=== PATIENT | female | born 1945 | race Caucasian/White ===

== ENCOUNTER 2018-04-16 11:10 | Emergency (ER) | payer OTHER, SELFPAY ==
[2018-04-16 11:20] VITALS: BP 128/72; PULSE 60; RESP 14; TEMP 36.4; O2SAT 100; BMI 21.8
--- NOTE | 2018-04-16 13:22 | ED.ARRPALP ---
HPI - Arrhythmia/Palpitations General Chief Complaint: Arrhythmia/Palpitations Stated Complaint: IRREGULAR HEART BEAT Time Seen by Provider: 04/16/18 13:22 Source: patient Mode of arrival: ambulatory Limitations: no limitations History of Present Illness HPI narrative: Patient is a 72-year-old female here for evaluation of palpitations. She states over the past several weeks if not months she has had more progressive palpitations. She states that it is somewhat associated with lightheadedness however she has not passed out. No chest pain no shortness of breath. Has never had anything like this before. Has not seen a primary care doctor about it. States there does becoming more frequent. Did not seem to be associated with any exercise. She does not know what brings them on. Last varying amounts of time. Is not having the symptoms at the time my evaluation. Related Data Home Medications Medication Instructions Recorded Confirmed naproxen sodium [Aleve] 220 mg PO PRN PRN #0 12/03/16 dihydroergotamine 1 mg/mL 1 mg IM .annually ml 11/26/17 11/26/17 injection solution Previous Rx's Medication Instructions Recorded zoster vaccine live (PF) [Zostavax 0.5 ml SQ X1 #1 ml 12/30/16 (PF)] sumatriptan [Imitrex] 20 mg INTRANASAL PRN #90 day 06/16/17 triamcinolone acetonide 0.1 % 1 applictn DENTAL BID-TID #5 gram 11/26/17 dental paste Allergies Allergy/AdvReac Type Severity Reaction Status Date / Time No Known Drug Allergies Allergy Unverified 11/26/17 16:26 Review of Systems Constitutional Denies fever(s) ENT Ears, Nose, Mouth, and Throat: Denies vertigo, Reports dizziness and Denies disequilibrium Cardiovascular Denies chest pain, Reports irregular heart rhythm, Denies radiating jaw, neck or arm pain, Reports palpitations and Denies dyspnea Respiratory Denies cough and Denies dyspnea Gastrointestinal Gastrointestinal: Denies nausea and Denies vomiting Integumentary/Breasts Denies rash Neurologic Denies confusion, Denies vertigo, Reports dizziness, Denies paresthesias and Denies disequilibrium Psychiatric Denies confusion Endocrine Reports palpitations Hematologic/Lymphatic Comments: Not on anticoagulation PFSH Medical History Migraines (Acute) Surgical History No pertinent past surgical history (Acute) Social History Smoking Status: Never smoker alcohol intake: current Exam Initial Vital Signs Initial Vital Signs: Vital Signs Temperature 97.6 F 04/16/18 11:20 Pulse Rate 60 04/16/18 11:20 Respiratory Rate 14 04/16/18 11:20 Blood Pressure 128/72 04/16/18 11:20 Pulse Oximetry 100 04/16/18 11:20 Const General: cooperative, healthy appearing, comfortable, well developed, well groomed and No acute distress Orientation: alert, awake and oriented x3 HENMT Head: normal to inspection and normocephalic Resp Effort & Inspection: normal respiratory effort Auscultation: clear to auscultation bilaterally Cardio Rate: regular rate Rhythm: regular rhythm Pulses: radial pulses present Skin Lesions: no lesions Neuro General: alert, awake and oriented x3 Psych Appearance: grossly normal and well kempt Course Orders Ordered: ED Orders 04/16/18 11:24 EKG-12 Lead Stat Vital Signs - 8 hr 04/16/18 11:20 04/16/18 13:36 Temperature 97.6 F Pulse Rate 60 62 Respiratory Rate 14 20 Blood Pressure 128/72 131/74 Pulse Oximetry 100 98 MDM - Arrhythmia/Palpitations ECG Data Attestation: I personally reviewed and interpreted this ECG as follows: Prior ECG tracings: not available for review Interpretation: sinus rhythm ventricular rate is 66 Normal QRS normal QTC normal axis No ST T wave changes MDM Narrative Medical decision making narrative: patient was seen quickly because she wanted to leave. Her EKG was un remarkable. No labs were drawn because she did not want to stay. She has no red flag symptoms to include chest pain or passing out. He has never had the symptoms while she is exercising. Informed the patient that she needs to contact her primary care doctor to discuss the indications for Holter monitor. She was given return precautions. She expressed understanding and agreement with plan. Discharge Plan Departure Patient Disposition: Home Clinical Impression: Palpitations Discharge Date/Time: 04/16/18 13:37 Interventions: ED Discharge Assessment Last Done: 04/16/18 13:36 Instructions: DI for Palpitations Activity Restrictions/Additional Instructions: I do recommend that you talk with your primary care doctor about a Holter monitor. Continue all of your medications as directed. You have no restrictions on your activity. I do recommend that if you ever have the symptoms associated with chest pain or shortness of breath or passing out you do need to be re-evaluated in the emergency department. Prescriptions: No Action dihydroergotamine 1 mg/mL solution 1 mg IM .annually RF: 0 triamcinolone acetonide 0.1 % paste 1 applictn Dental BID-TID Qty: 5 RF: 0 naproxen sodium [Aleve] 220 MG capsule 220 mg PO PRN PRNQty: 0 RF: 0 zoster vaccine live (PF) [Zostavax (PF)] 19,400 UNIT/0.65 ML suspension for reconstitution 0.5 ml SQ X1 Qty: 1 RF: 0 sumatriptan [Imitrex] 20 MG spray,non-aerosol 20 mg Intranasal PRN Qty: 90 RF: 0
[2018-04-16 13:36] VITALS: BP 131/74; PULSE 62; RESP 20; O2SAT 98
== END 2018-04-16 13:37 | disposition home or self-care (01) ==
PROVIDERS: Emergency Provider Emergency Medicine; Family Provider Family Medicine; PCP Family Medicine
DX: R00.2 Palpitations (principal)
CPT/HCPCS: 93005; 99282; 99283

== ENCOUNTER → 2018-05-05 14:25 | Outpatient (CLI) | payer OTHER, SELFPAY ==
--- NOTE | 2018-05-21 11:34 | PM.CARDMON.1 ---
[employer] Specialist Report Referral & Results Date Patient Seen: 05/05/18 Requesting provider: Mei Turner Indication: Palpitations Duration of monitoring (days): 7 Diary information: Patient had 6 diary entries associated with sinus rhythm and PACs There were 33 patient triggered events associated with sinus rhythm, PACs, PVCs, and ventricular bigeminy and ventricular bigeminy Data: Minimum heart rate was 40 beats per minute at 06:44 on 05/13/2018 Maximum heart rate was 126 beats per minute at 12:46 on 05/10/2018 Less than 1% of identified beats or either ventricular supraventricular in origin There was a 41 sec run of ventricular trigeminy as well as a 4.7 sec run of ventricular bigeminy There were 6 runs of an SVT maximum being 8 beats with a rate of 102 beats per minute (thus not a classic SVT) Impression: Both ventricular and supraventricular dysrhythmias as above Overall relatively rare premature depolarizations, but patient could be reporting symptoms of palpitations due to ventricular dysrhythmia including ventricular bigeminy and trigeminy as above Clinical correlation suggested
== END ==
PROVIDERS: Family Provider Family Medicine; PCP Family Medicine; Visit Provider Family Medicine
DX: R00.2 Palpitations (principal)
CPT/HCPCS: 0296T; 0298T

== ENCOUNTER → 2018-06-04 09:07 | Outpatient (CLI) | payer OTHER, SELFPAY ==
[2018-06-04 09:53] LABS: Add Manual Diff / Slide Review NO; Basophils Absolute Auto 0 /uL (0-100); Basophils Percent Auto 0.4 % (0-2); Eosinophils Absolute Auto 100 /uL (0-450); Eosinophils Percent Auto 1.8 % (2-4); Hematocrit 43.9 % (36-46); Hemoglobin 14.4 g/dL (12.0-16.0); Lymphocytes Absolute Auto 1600 /uL (1100-4500); Mean Corpuscular HGB Conc 32.8 % (30-36); Mean Corpuscular Hemoglobin 30.6 PG (26-34); Mean Corpuscular Volume 93.2 fL (80-100); Monocytes Absolute Auto 400 /uL (0-900); Monocytes Percent Auto 11.6 % (3-14); Neutrophils Absolute Auto 1500 /uL (1500-7000); Neutrophils Percent Auto 41.2 % (50-75); Platelet Count 208 X10^3/uL (150-400); Red Blood Cell Count 4.71 X10^6/uL (4.0-5.2); Red Cell Distribution Width 13.5 % (11.6-14.8); White Blood Cell Count 3.5 X10^3/uL (4.5-11.0)
[2018-06-04 10:02] LABS: Alanine Aminotransferase 31 IU/L (9-52); Albumin 4.4 g/dL (3.5-5.0); Albumin Globulin Ratio 1.4 (1.0-2.8); Alkaline Phosphatase 86 U/L (38-126); Aspartate Aminotransferase 30 IU/L (14-36); Bilirubin Total 0.6 mg/dL (0.2-1.3); Blood Urea Nitrogen 18 mg/dL (7-17); Calcium 9.1 mg/dL (8.4-10.2); Carbon Dioxide 30 mmol/L (22-32); Chloride 101 mmol/L (98-107); Cholesterol 226 mg/dL (140-199); Estimated Glomerular Filt Rate > 60.0 mL/min (>60); Globulin 3.1 g/dL (1.7-4.1); Glucose 95 mg/dL (80-110); HDL Cholesterol 76 mg/dL (40-60); HEMOLYSIS < 15 (0-50); LDL Cholesterol Calculated 139 mg/dL (<100); Potassium 4.8 mmol/L (3.4-5.1); Sodium 139 mmol/L (137-145); Total Protein 7.5 g/dL (6.3-8.2); Triglycerides 55 mg/dL (35-150)
[2018-06-04 10:46] LABS: Appearance Urine UA CLEAR; Bilirubin Urine UA NEGATIVE (NEGATIVE); Color Urine UA YELLOW; Glucose Urine UA NEGATIVE (Negative); Ketones Urine UA NEGATIVE (NEGATIVE); Leukocyte Esterase Urine UA NEGATIVE (NEGATIVE); Nitrite Urine UA NEGATIVE (Negative); Occult Blood Urine UA NEGATIVE (Negative); Protein Urine UA NEGATIVE (Negative); Specific Gravity Urine UA 1.015 (1.000-1.035); Urobilinogen Urine UA 0.2 E.U./dL (0.2); pH Urine UA 7.5 (4.5-8.0)
[2018-06-04 11:04] LABS: Thyroid Stimulating Hormone 1.37 uIU/mL (0.47-4.68)
== END ==
PROVIDERS: Family Provider Family Medicine; PCP Family Medicine; Visit Provider Family Medicine
DX: I49.9 Cardiac arrhythmia, unspecified (principal); R53.83 Other fatigue; Z51.81 Encounter for therapeutic drug level monitoring
CPT/HCPCS: 36415; 80053; 80061; 81003; 84443; 85025

== ENCOUNTER 2018-07-15 12:16 | Emergency (ER) | payer OTHER, SELFPAY ==
[2018-07-15 12:22] VITALS: BP 141/90; PULSE 57; RESP 16; TEMP 36.3; O2SAT 100
--- NOTE | 2018-07-15 14:04 | TAR.TRANSNT ---
Pt in extreme discomfort in her mid to lower back with hyperventilation and facial grimacing which increases with little movement.
--- NOTE | 2018-07-15 14:06 | PC.NURSE ---
Pt c/o difficulty breathing and noticed multiple PVCs during this time. Pt reports has a irregular heart beat and waiting for occupational therapy supervisor f/u in July. Is not currently on anticoagulant or medication.
--- NOTE | 2018-07-15 14:08 | PC.NURSE ---
Pt reports no injury but had done yard work a few days ago with much lifting and pulling. Denies problem with incontinences
[2018-07-15 14:19] VITALS: BP 145/96; PULSE 64; RESP 20
--- NOTE | 2018-07-15 14:24 | ED.BACK ---
HPI - Back Pain/Injury <SILKE Hoffmann - Last Filed: 07/15/18 16:35> General Chief Complaint: Back Pain/Injury Stated Complaint: says she has muscle spasms Time Seen by Provider: 07/15/18 14:15 Source: patient Mode of arrival: ambulatory Limitations: no limitations History of Present Illness HPI Narrative: The patient is a 72-year-old female who presents with chief complaint of lower back pain on her left side. She was seen at the walk-in clinic for the same earlier this morning. She was given Toradol at the walk-in clinic and a prescription was sent in for a muscle relaxer. She did not fill the prescription for muscle relaxer and presents today with worsening pain. she denies any fevers chills nausea vomiting diarrhea. She does complain of some urinary urgency, but had a normal UA at the walk-in clinic. Related Data Home Medications Medication Instructions Recorded Confirmed naproxen sodium [Aleve] 220 mg PO PRN PRN #0 12/03/16 07/15/18 dihydroergotamine 1 mg/mL 1 mg IM .annually ml 11/26/17 07/15/18 injection solution Previous Rx's Medication Instructions Recorded sumatriptan [Imitrex] 20 mg INTRANASAL PRN #90 day 06/16/17 hydrocodone-acetaminophen 1 tab PO Q4-6H PRN #10 tab 07/15/18 methocarbamol 500 mg tablet 500 mg PO QID PRN #10 tab 07/15/18 Allergies Allergy/AdvReac Type Severity Reaction Status Date / Time No Known Drug Allergies Allergy Verified 07/15/18 08:12 Review of Systems <SILKE Hoffmann - Last Filed: 07/15/18 16:35> Review of Systems GENERAL: Denies chills, fatigue, malaise, fever, sweats. HEENT: Denies sinus pain, ear pain, sore throat, difficulty swallowing, dizziness. RESPIRATORY: Denies dyspnea, cough, wheezing, hemoptysis, sputum. CARDIOVASCULAR: Denies chest pain, palpitations, orthopnea, edema, GASTROINTESTINAL: Denies nausea, vomiting, abdominal pain, diarrhea, constipation, melena. : Denies dysuria, frequency, incontinence, hematuria, urinary retention. MUSCULOSKELETAL: See HPI SKIN: Denies rash, skin lesions, or other NEUROLOGIC: Denies weakness, headache, numbness, change in speech, confusion, seizures, incoordination. PSYCHIATRIC: No concerning psychosocial issues. 12 point review of systems is negative except for those stated above PFSH <SILKE Hoffmann - Last Filed: 07/15/18 16:35> Medical History Migraines (Acute) Surgical History No pertinent past surgical history (Acute) Social History Smoking Status: Never smoker alcohol intake: current Social History Smoking Status: Never smoker alcohol intake: current Exam <SILKE Hoffmann - Last Filed: 07/15/18 16:35> Narrative Exam Narrative: GENERAL: This is a well-nourished, well-developed patient, in mild distress. HEAD: Atraumatic. Normocephalic. No temporal or scalp tenderness. EYES: Pupils equal round and reactive. Extraocular motions intact. No scleral icterus. No injection or drainage. ENT: Nose without bleeding, purulent drainage or septal hematoma. Throat without erythema, tonsillar hypertrophy or exudate. Uvula midline. Airway patent. NECK: Trachea midline. No JVD or lymphadenopathy. Supple, nontender, no meningeal signs. CARDIOVASCULAR: Regular rate and rhythm without murmurs, gallops, or rubs. no cough. No accessory muscle use or increased respiratory effort. RESPIRATORY: Clear to auscultation. Breath sounds equal bilaterally. No wheezes, rales, or rhonchi. GASTROINTESTINAL: Abdomen soft, non-tender, nondistended. No hepato-splenomegaly, or palpable masses. No guarding. active bowel sounds. No palpable pulsatile mass. EXTREMITIES: No clubbing, cyanosis, or edema. No joint tenderness, effusion, or edema noted. BACK: Nontender without deformity or crepitance. No flank tenderness. no pain to palpation C-spine or spine. Pain to palpation of left paraspinal muscles and T-spine area. Less pain to palpation right paraspinal muscles. Strength equal upper and lower extremities bilaterally. normal gait, normal muscle tone. NEURO: AOx3. No gross cranial nerve deficit. SKIN: No rash or erythema. Initial Vital Signs Initial Vital Signs: Vital Signs Temperature 97.4 F L 07/15/18 12:22 Pulse Rate 57 L 07/15/18 12:22 Respiratory Rate 16 07/15/18 12:22 Blood Pressure 141/90 H 07/15/18 12:22 Pulse Oximetry 100 07/15/18 12:22 <Maggie Mercedes DO - Last Filed: 07/16/18 19:37> Initial Vital Signs Initial Vital Signs: Vital Signs Temperature 97.4 F L 07/15/18 12:22 Pulse Rate 57 L 07/15/18 12:22 Respiratory Rate 16 07/15/18 12:22 Blood Pressure 141/90 H 07/15/18 12:22 Pulse Oximetry 100 07/15/18 12:22 Course <CLEMENTE HoffmannBC - Last Filed: 07/15/18 16:35> Orders Ordered: Discontinued Medications Hydrocodone Bitart/Acetaminophen (Baldwin 5/325) 1 tab PO NOW ONE Stop: 07/15/18 14:24 Last Admin: 07/15/18 14:29 Dose: 1 tab Cyclobenzaprine HCl (Flexeril) 10 mg PO NOW ONE Stop: 07/15/18 14:24 Last Admin: 07/15/18 14:29 Dose: 10 mg Vital Signs - 8 hr 07/15/18 12:22 07/15/18 14:19 07/15/18 16:24 Temperature 97.4 F L Pulse Rate 57 L 64 63 Respiratory Rate 16 20 Blood Pressure 141/90 H 118/95 H Blood Pressure [Left Arm] 145/96 H Pulse Oximetry 100 100 <Maggie Mercedes DO - Last Filed: 07/16/18 19:37> Orders Ordered: Discontinued Medications Hydrocodone Bitart/Acetaminophen (Baldwin 5/325) 1 tab PO NOW ONE Stop: 07/15/18 14:24 Last Admin: 07/15/18 14:29 Dose: 1 tab Cyclobenzaprine HCl (Flexeril) 10 mg PO NOW ONE Stop: 07/15/18 14:24 Last Admin: 07/15/18 14:29 Dose: 10 mg Vital Signs - 8 hr 07/15/18 12:22 07/15/18 14:19 07/15/18 16:24 Temperature 97.4 F L Pulse Rate 57 L 64 63 Respiratory Rate 16 20 Blood Pressure 141/90 H 118/95 H Blood Pressure [Left Arm] 145/96 H Pulse Oximetry 100 100 MDM - Back Pain/Injury <BRANDYN Hoffmann-BC - Last Filed: 07/15/18 16:35> Lab Data Lab Results 07/15/18 Range/Units 14:33 Urine Color Yellow Urine Appearance Clear Urine pH 7.5 (4.5-8.0) Ur Specific [place] 1.010 (1.000-1.035) Urine Protein Negative (Negative) Urine Glucose (UA) Negative (Negative) g/dL Urine Ketones Negative (NEGATIVE) Urine Occult Blood Negative (Negative) Urine Nitrate Negative (Negative) Urine Bilirubin Negative (NEGATIVE) Urine Urobilinogen 0.2 (0.2) E.U./dL Ur Leukocyte Esterase Negative (NEGATIVE) Urine RBC None seen (0-5/HPF) Urine WBC None seen (0-5/HPF) Urine Bacteria None seen (None) Ur Culture Indicated? Cult not indicated Micro UA Comment Microscopic normal MDM Narrative Medical decision making narrative: The patient is a 72-year-old female who presents with a chief complaint of back pain. She was seen at the walk-in clinic, but did not fill her muscle relaxer prescription that she was given this morning. The she declined x-rays she does not have thoughts of injury to spinal column. She was treated with a Baldwin as well as Flexeril in the emergency department. She had good relief of pain. She denies any red flag symptoms such as incontinence or saddle anesthesia. I discussed at length return precautions to the ER including incontinence and/or saddle anesthesia. I did give her prescription of Baldwin and she will use the Robaxin prescription that was sent earlier today. I discussed at length follow up with primary care. Patient no questions or concerns upon discharge. <Maggie Mercedes DO - Last Filed: 07/16/18 19:37> Lab Data Lab Results 07/15/18 Range/Units 14:33 Urine Color Yellow Urine Appearance Clear Urine pH 7.5 (4.5-8.0) Ur Specific [place] 1.010 (1.000-1.035) Urine Protein Negative (Negative) Urine Glucose (UA) Negative (Negative) g/dL Urine Ketones Negative (NEGATIVE) Urine Occult Blood Negative (Negative) Urine Nitrate Negative (Negative) Urine Bilirubin Negative (NEGATIVE) Urine Urobilinogen 0.2 (0.2) E.U./dL Ur Leukocyte Esterase Negative (NEGATIVE) Urine RBC None seen (0-5/HPF) Urine WBC None seen (0-5/HPF) Urine Bacteria None seen (None) Ur Culture Indicated? Cult not indicated Micro UA Comment Microscopic normal Discharge Plan Departure Patient Disposition: Home Clinical Impression: Low back pain Qualifiers: Chronicity: acute Back pain laterality: left Sciatica presence: without sciatica Qualified Code(s): M54.5 - Low back pain Discharge Date/Time: 07/15/18 16:25 Interventions: ED Discharge Assessment Last Done: 07/15/18 16:24 Instructions: DI for Back Spasm, DI for Back Strain or Sprain Activity Restrictions/Additional Instructions: The walk-in clinic sent a muscle relaxer in for you. I have given you a prescription of a pain medication. This can be sedating and constipating. Please do not take and drive. Please follow up with primary care provider in the next few days. Please monitor for acute concerns such as incontinence of bowel, incontinence of bladder, and numbness where you would sit in a horse which is called saddle anesthesia. Please follow up with primary care provider come back to the emergency department if you need to. Prescriptions: New hydrocodone-acetaminophen 5-325 mg tablet 1 tab PO Q4-6H PRN (Reason: pain) Qty: 10 RF: 0 No Action dihydroergotamine 1 mg/mL solution 1 mg IM .annually RF: 0 methocarbamol 500 mg tablet 500 mg PO QID PRN (Reason: muscle spasm) Qty: 10 RF: 0 naproxen sodium [Aleve] 220 MG capsule 220 mg PO PRN PRNQty: 0 RF: 0 sumatriptan [Imitrex] 20 MG spray,non-aerosol 20 mg Intranasal PRN Qty: 90 RF: 0 Referrals: Mei Turner DO [Primary Care Provider] - <Maggie Mercedes DO - Last Filed: 07/16/18 19:37> Cosign ED Attending Johannature Attestation: I was immediately available in the department for consultation. This documentation has been reviewed and I agree with assessment and plan. Supervised by Maggie Mercedes DO
[2018-07-15] MEDS: CYCLOBENZAPRINE 10 MG TABLET PO (14:29)
[2018-07-15] MEDS: HYDROCODONE/ACET 5/325 TABLET 1 TAB PO (14:29)
[2018-07-15 14:38] LABS: Appearance Urine UA CLEAR; Bacteria Urine None Seen; Bilirubin Urine UA NEGATIVE (NEGATIVE); Color Urine UA YELLOW; Glucose Urine UA NEGATIVE (Negative); Ketones Urine UA NEGATIVE (NEGATIVE); Leukocyte Esterase Urine UA NEGATIVE (NEGATIVE); Nitrite Urine UA NEGATIVE (Negative); Occult Blood Urine UA NEGATIVE (Negative); Protein Urine UA NEGATIVE (Negative); RBC Urine None Seen (0-5/HPF); Urobilinogen Urine UA 0.2 E.U./dL (0.2); WBC Urine None Seen (0-5/HPF); pH Urine UA 7.5 (4.5-8.0)
[2018-07-15 14:44] LABS: Culture Indicated Urine Cult Not Indicated; Urine Comments Microscopic Normal
[2018-07-15 16:24] VITALS: BP 118/95; PULSE 63; O2SAT 100
== END 2018-07-15 16:25 | disposition home or self-care (01) ==
PROVIDERS: Emergency Provider Nurse Practitioner Family; Family Provider Family Medicine; PCP Family Medicine
DX: M54.5 Low back pain (principal); R39.15 Urgency of urination
CPT/HCPCS: 81001; 93005; 93010; 99283

== ENCOUNTER → 2018-11-10 10:31 | Outpatient (CLI) | payer OTHER, SELFPAY ==
[2018-11-10 11:48] LABS: Alanine Aminotransferase 20 IU/L (9-52); Albumin 4.6 g/dL (3.5-5.0); Albumin Globulin Ratio 1.5 (1.0-2.8); Alkaline Phosphatase 76 U/L (38-126); Aspartate Aminotransferase 27 IU/L (14-36); BUN Creatinine Ratio 22.5 (6-22); Bilirubin Total 0.9 mg/dL (0.2-1.3); Blood Urea Nitrogen 18 mg/dL (7-17); Calcium 9.3 mg/dL (8.4-10.2); Carbon Dioxide 28 mmol/L (22-32); Chloride 103 mmol/L (98-107); Cholesterol 187 mg/dL (140-199); Estimated Glomerular Filt Rate > 60.0 mL/min (>60); Globulin 3.1 g/dL (1.7-4.1); Glucose 94 mg/dL (80-110); HDL Cholesterol 64 mg/dL (40-60); HEMOLYSIS < 15 (0-50); LDL Cholesterol Calculated 105 mg/dL (<100); Potassium 4.8 mmol/L (3.4-5.1); Sodium 140 mmol/L (137-145); Total Protein 7.7 g/dL (6.3-8.2); Triglycerides 88 mg/dL (35-150)
== END ==
PROVIDERS: Family Provider Family Medicine; PCP Family Medicine; Visit Provider Family Medicine
DX: E78.5 Hyperlipidemia, unspecified (principal)
CPT/HCPCS: 36415; 80053; 80061

== ENCOUNTER → 2018-11-11 10:49 | Outpatient (CLI) | payer OTHER, SELFPAY ==
--- NOTE | 2018-11-11 | DI.MG.S_ITS ---
BILATERAL DIGITAL SCREENING MAMMOGRAM 3D/2D WITH CAD: 11/11/2018 CLINICAL: Routine screening. Family history of breast cancer. Comparison is made to exams dated: 06/01/2016 mammogram, 05/30/2015 mammogram, 05/16/2014 mammogram, 05/15/2013 mammogram, 05/05/2013 mammogram, and 04/28/2012 mammogram - [facility]. The tissue of both breasts is heterogeneously dense. This may lower the sensitivity of mammography. Current study was also evaluated with a Computer Aided Detection (CAD) system. No significant masses, calcifications, or other findings are seen in either breast. There has been no significant interval change. IMPRESSION: NEGATIVE There is no mammographic evidence of malignancy. A 1 year screening mammogram is recommended. This exam was interpreted at Station ID: [id number]. NOTE: For mammograms, a report in lay terms will be sent to the patient. Approximately 15% of breast malignancies will not be visualized mammographically. In the management of a palpable breast mass, a negative mammogram must not discourage biopsy of a clinically suspicious lesion. Electronically Signed By: Antonio hardy/andressa:11/11/2018 11:28:02 copy to: Mei Turner letter sent: Normal Exam ACR BI-RADS Category 1: Negative 3341F
== END ==
PROVIDERS: PCP Family Medicine; Visit Provider Family Medicine
DX: Z12.31 Encounter for screening mammogram for malignant neoplasm of breast (principal); Z80.3 Family history of malignant neoplasm of breast
CPT/HCPCS: 77063; 77067

== ENCOUNTER → 2019-08-29 | Outpatient (CLI) | payer OTHER, SELFPAY | PROVIDERS: PCP Family Medicine; Referring Provider Family Medicine; Visit Provider Family Medicine ==

== ENCOUNTER → 2019-08-31 07:29 | Outpatient (CLI) | payer OTHER, SELFPAY ==
[2019-08-31 08:45] LABS: Hematocrit 41.3 % (36-46); Hemoglobin 14.2 g/dL (12.0-16.0); Mean Corpuscular HGB Conc 34.4 % (30-36); Mean Corpuscular Hemoglobin 31.8 PG (26-34); Mean Corpuscular Volume 92.5 fL (80-100); Platelet Count 196 X10^3/uL (150-400); Red Blood Cell Count 4.46 X10^6/uL (4.0-5.2); Red Cell Distribution Width 13.1 % (11.6-14.8); White Blood Cell Count 3.5 X10^3/uL (4.5-11.0)
[2019-08-31 08:56] LABS: Cholesterol 207 mg/dL (140-199); HDL Cholesterol 62 mg/dL (40-60); LDL Cholesterol Calculated 126 mg/dL (<100); Triglycerides 96 mg/dL (35-150)
[2019-08-31 09:05] LABS: Neutrophils Absolute Manual 1820 /uL (3000-5900); Total Cells Counted 100
[2019-08-31 09:06] LABS: RBC Morphology Normal Morphology
[2019-09-01 13:09] LABS: SARS CoV19 IgG Negative (Negative)
== END ==
PROVIDERS: Family Medicine; PCP Family Medicine; Referring Provider Family Medicine; Visit Provider Family Medicine
DX: E78.5 Hyperlipidemia, unspecified (principal)
CPT/HCPCS: 36415; 80061; 85025; 86769

== ENCOUNTER → 2019-11-23 11:49 | Outpatient (CLI) | payer OTHER, SELFPAY ==
--- NOTE | 2019-11-23 12:02 | DI.MG.S_ITS ---
Patient Name: JACQUELINE WITT date: 1945 Sex: F Attending Physician: Zaheer Indications: Date: 11/23/2019 12:05 At the request of: ALEXANDRA ESCOBAR Procedure: MM screening mammo BI BILATERAL DIGITAL SCREENING MAMMOGRAM 3D/2D WITH CAD: 11/23/2019 CLINICAL: Routine screening. Family history of breast cancer. Comparison is made to exams dated: 11/11/2018 mammogram, 06/01/2016 mammogram, and 05/30/2015 mammogram - [facility]. The tissue of both breasts is heterogeneously dense. This may lower the sensitivity of mammography. Current study was also evaluated with a Computer Aided Detection (CAD) system. There are benign calcifications in both breasts. No significant masses, calcifications, or other findings are seen in either breast. There has been no significant interval change. IMPRESSION: BENIGN There is no mammographic evidence of malignancy. A 1 year screening mammogram is recommended. This exam was interpreted at Station ID: [id number]. NOTE: For mammograms, a report in lay terms will be sent to the patient. Approximately 15% of breast malignancies will not be visualized mammographically. In the management of a palpable breast mass, a negative mammogram must not discourage biopsy of a clinically suspicious lesion. Electronically Signed By: Clarence asher/andressa:11/23/2019 15:38:56 copy to: Mei Turner letter sent: Normal Exam ACR BI-RADS Category 2: Benign Finding(s) 3342F Continued Report - Page 2 of 2 Patient Name: JACQUELINE WITT date: 1945 Sex: F Attending Physician: Zaheer Indications: Date: 11/23/2019 12:05 At the request of: ALEXANDRA ESCOBAR Procedure: MM screening mammo BI
== END ==
PROVIDERS: PCP Family Medicine; Referring Provider Family Medicine; Visit Provider Family Medicine
DX: Z12.31 Encounter for screening mammogram for malignant neoplasm of breast (principal); Z80.3 Family history of malignant neoplasm of breast
CPT/HCPCS: 77063; 77067

== ENCOUNTER → 2020-01-15 14:10 | Outpatient (CLI) | payer OTHER, SELFPAY ==
[2020-01-16 06:48] LABS: COVID19 Sendout Not Detected (Not Detect)
== END ==
PROVIDERS: PCP Family Medicine; Visit Provider Physician Assistant
DX: Z01.812 Encounter for preprocedural laboratory examination (principal)
CPT/HCPCS: 87635

== ENCOUNTER 2020-01-18 14:07 | Day surgery (SDC) | payer OTHER, SELFPAY ==
[2020-01-18] VITALS (9 sets, daily range): BP systolic 107–143; BP diastolic 62–80; PULSE 60–67; RESP 8–17; TEMP 36.2–36.6; O2SAT 97–99; BMI 23.3
[2020-01-18] MEDS: LACTATED RINGERS 1,000 ML 200 ML IV (14:37)
--- NOTE | 2020-01-18 15:02 | PM.HP.1 ---
History of Present Illness History of Present Illness Date Patient Seen: 01/18/20 Time Patient Seen: 15:02 Chief complaint: SDC Narrative: The patient presents for colorectal sreening. She had a previously normal colonoscopy 10 years ago. No personal or family history of colon cancer. On further history denies any recent gastrointestinal symptoms. No nausea, vomiting, abdominal pain, loss of appetite, unexplained weight loss, change in bowel habits, diarrhea, constipation, melena, hematochezia, or bright red blood per rectum. Patient History Medical History Encounter for screening colonoscopy (Acute) Migraines (Acute) Plantar fasciitis (Acute) Surgical History No pertinent past surgical history (Acute) Family & Social History Social History: household members none Tobacco & Substance use: Smoking Status Never smoker alcohol intake current alcohol intake frequency holiday/special occasion Substance Use Type does not use Meds Home Medications and Allergies Home Medications Medication Instructions Recorded Confirmed Type No Known Home Medications 01/18/20 01/18/20 History Allergies Allergy/AdvReac Type Severity Reaction Status Date / Time No Known Drug Allergies Allergy Verified 12/27/19 14:01 Review of Systems Review of Systems Narrative: A 10 point review of systems is negative except as noted in the HPI Exam Vital Signs (past 8 hours): - 01/18/20 14:21 Temperature 97.4 F L Pulse Rate 65 Respiratory Rate 16 Blood Pressure 143/80 H Pulse Oximetry 99 Oxygen Delivery Method Room Air Narrative Exam Narrative: General-no acute distress, well nourished elderly woman HEENT-moist mucous membranes, no scleral icterus Neck-supple, no lymphadenopathy Chest- non labored respirations, clear to auscultation bilaterally Cardiac-regular rate no peripheral edema Abdomen-soft, nontender, non distended Extremities-warm, well perfused Neurological-alert and oriented, no focal deficits Assessment & Plan Assessment & Plan narrative: The patient requires colorectal screening and colonoscopy is recommended. Technical details were discussed. Risks, benefits, alternatives explained. Risks including but not limited to myocardial infarction, aspiration, bleeding, pain, missed lesion, incomplete examination, need for further radiographic studies, colonic perforation, and need for major abdominal surgery were discussed. All questions were answered to their satisfaction, and they are in agreement with this plan.
[2020-01-18] MEDS: fentaNYL 250 MCG/5 ML INJ IV (15:08)
[2020-01-18] MEDS: MIDAZOLAM 5 MG/5 ML VIAL IV (15:08)
--- NOTE | 2020-01-18 15:25 | PM.OP.ENDO ---
Operative Date/Time/Diagnoses Date of procedure: 01/18/20 Time of procedure: 15:26 Pre-op diagnosis: Screening colonoscopy Post-op diagnosis: same Procedure & Clinicians Study performed: Incomplete colonoscopy Same procedure as scheduled: No Indications: 74-year-old woman last colonoscopy 10 years ago normal here for routine screening Surgeon: Homer Hernandez Procedure Notes SCOAP/Timeout: Performed Procedure in detail: Patient placed in left lateral recumbent position. Time out was performed. Procedural sedation was administered with Versed and Fentanyl. Examination began with a thorough inspection of the perianal area there was no evidence of fissures, fistulae, external hemorrhoids or cutaneous malignancy. The colonoscopy scope was then placed into the rectum the the lumen was insufflated with air. The scope was carefully advanced forward. The sigmoid colon was extremely tortuous. The patient was repositioned a scope stiffener was placed but despite these measures I was unable to safely navigate the sigmoid colon and the procedure was aborted. The colon to the level of the sigmoid colon was normal. Scope withdrawal time: Not applicable Sedation minutes: 13 Findings: other findings (Tortuous sigmoid colon) Specimen(s): none sent Complications: none Impression: Incomplete colonoscopy Post-procedure Recommendations: Other recommendation ( barium enema) Disposition: same day surgery
== END 2020-01-18 16:28 | disposition home or self-care (01) ==
PROVIDERS: PCP Family Medicine; Referring Provider Surgery; Visit Provider Surgery
PROC: 0DJD8ZZ Inspection of Lower Intestinal Tract, Via Natural or Artificial Opening Endoscopic (ICD-10-PCS; CPT 45378; principal; 2020-01-18 15:15)
DX: Z12.11 Encounter for screening for malignant neoplasm of colon (principal); K56.2 Volvulus
CPT/HCPCS: G0104; J2250; J3010

== ENCOUNTER → 2020-02-08 10:35 | Outpatient (CLI) | payer OTHER, SELFPAY ==
--- NOTE | 2020-02-08 10:37 | DI.RAD.S_ITS ---
PROCEDURE: FL BARIUM ENEMA INDICATIONS: Incomplete colonoscopy COMPARISON: None. FINDINGS: KUB: Preprocedural route salesperson film demonstrates a normal bowel gas pattern. No suspicious abdominal calcifications. Visualized solid organ contours appear normal in size. No suspicious bony lesions. Colon: There is adequate opacification of the entire colon. No strictures or extrinsic mass effects are identified. No colonic fistulae or perforations. Colon caliber appears normal. IMPRESSION: Normal barium enema evaluation. The colon is noted to be redundant but retrograde contrast allowed visualization of the right to the cecal tip. Dictated by: Ryan Hook M.D. on 02/08/2020 at 13:55 Approved by: Ryan Hook M.D. on 02/08/2020 at 13:59
== END ==
PROVIDERS: PCP Family Medicine; Referring Provider Family Medicine; Visit Provider Surgery
DX: Z12.11 Encounter for screening for malignant neoplasm of colon (principal)
CPT/HCPCS: 74270

== ENCOUNTER → 2020-04-23 12:41 | Outpatient (CLI) | payer MEDICARE, SELFPAY ==
[2020-04-23] MEDS: COVID-19 VACC #1, MRNA(MOD) 100 MCG/0.5 ML VIAL IM (12:56)
== END ==
PROVIDERS: PCP Family Medicine; Visit Provider Internal Medicine
DX: Z23 Encounter for immunization (principal)
CPT/HCPCS: 0011A; 91301

== ENCOUNTER → 2020-05-21 12:54 | Outpatient (CLI) | payer MEDICARE, SELFPAY ==
[2020-05-21] MEDS: COVID-19 VACC #2, MRNA(MOD) 100 MCG/0.5 ML VIAL IM (13:05)
== END ==
PROVIDERS: PCP Family Medicine; Visit Provider Internal Medicine
DX: Z23 Encounter for immunization (principal)
CPT/HCPCS: 0012A; 91301

== ENCOUNTER → 2020-10-24 09:58 | Outpatient (CLI) | payer OTHER, SELFPAY ==
[2020-10-24 11:34] LABS: Alanine Aminotransferase 23 IU/L (<35); Albumin Globulin Ratio 1.3 (1.0-2.8); Alkaline Phosphatase 82 U/L (38-126); Aspartate Aminotransferase 40 IU/L (14-36); BUN Creatinine Ratio 23.9 (6-22); Bilirubin Total 0.7 mg/dL (0.2-1.3); Blood Urea Nitrogen 16 mg/dL (7-17); Carbon Dioxide 27 mmol/L (22-32); Chloride 106 mmol/L (98-107); Cholesterol 220 mg/dL (140-199); Estimated Glomerular Filt Rate > 60.0 mL/min (>60); Glucose 93 mg/dL (80-110); HDL Cholesterol 64 mg/dL (40-60); HEMOLYSIS < 15 (0-50); LDL Cholesterol Calculated 141 mg/dL (<100); Potassium 4.3 mmol/L (3.4-5.1); Sodium 138 mmol/L (137-145); Triglycerides 77 mg/dL (35-150)
[2020-10-24 12:37] LABS: Vitamin D 25 Hydroxy (D3) 43.6 ng/mL (30.0-100.0)
== END ==
PROVIDERS: PCP Family Medicine; Referring Provider Registered Nurse; Visit Provider Registered Nurse
DX: Z79.899 Other long term (current) drug therapy (principal); I10 Essential (primary) hypertension; E78.5 Hyperlipidemia, unspecified; I49.9 Cardiac arrhythmia, unspecified
CPT/HCPCS: 36415; 80053; 80061; 82306

== ENCOUNTER → 2020-11-07 08:55 | Outpatient (CLI) | payer OTHER, SELFPAY ==
[2020-11-07 09:45] LABS: COVID19 -Nasal RAPID Negative (Negative)
== END ==
PROVIDERS: PCP Family Medicine; Visit Provider Physician Assistant
DX: Z20.822 Contact with and (suspected) exposure to COVID-19 (principal)
CPT/HCPCS: 87635

== ENCOUNTER → 2021-03-04 16:25 | Outpatient (CLI) | payer OTHER, SELFPAY ==
--- NOTE | 2021-03-04 16:26 | DI.MG.S_ITS ---
BILATERAL DIGITAL SCREENING MAMMOGRAM 3D/2D WITH CAD: 03/04/2021 CLINICAL: Routine screening. Family history of breast cancer. Comparison is made to exams dated: 11/23/2019 mammogram, 11/11/2018 mammogram, and 06/01/2016 mammogram - [facility]. The tissue of both breasts is heterogeneously dense. This may lower the sensitivity of mammography. Current study was also evaluated with a Computer Aided Detection (CAD) system. There is a possible new irregular equal density asymmetry in the right breast middle depth lateral region seen on the craniocaudal view only. No other significant masses, calcifications, or other findings are seen in either breast. IMPRESSION: INCOMPLETE: NEEDS ADDITIONAL IMAGING EVALUATION The possible new irregular equal density asymmetry in the right breast is indeterminate. Additional views with possible ultrasound are recommended. This exam was interpreted at Station ID: [id number]. NOTE: For mammograms, a report in lay terms will be sent to the patient. Approximately 15% of breast malignancies will not be visualized mammographically. In the management of a palpable breast mass, a negative mammogram must not discourage biopsy of a clinically suspicious lesion. Electronically Signed By: Jacob Garcia M.D. aty/:03/04/2021 16:51:51 copy to: Mei Turner letter sent: Additional Imaging Needed ACR BI-RADS Category 0: Incomplete 3340F
== END ==
PROVIDERS: PCP Family Medicine; Referring Provider Family Medicine; Visit Provider Family Medicine
DX: Z12.31 Encounter for screening mammogram for malignant neoplasm of breast (principal); Z80.3 Family history of malignant neoplasm of breast
CPT/HCPCS: 77063; 77067

== ENCOUNTER → 2021-04-01 11:57 | Outpatient (CLI) | payer OTHER, SELFPAY ==
--- NOTE | 2021-04-01 | DI.MG.S_ITS ---
UNILATERAL RIGHT DIGITAL DIAGNOSTIC MAMMOGRAM 3D/2D WITH ADDITIONAL VIEWS: 04/01/2021 CLINICAL: Additional evaluation requested from prior study. Comparison is made to exams dated: 03/04/2021 mammogram, 11/23/2019 mammogram, and 11/11/2018 mammogram - [facility]. The tissue of right breast is heterogeneously dense. This may lower the sensitivity of mammography. With focal spot compression, and additional views, the asymmetry and area of architectural distortion seen on screening mammography almost completely resolves. Questionable residual architectural distortion. No significant masses, calcifications, or other findings are seen in the breast. IMPRESSION: INCOMPLETE: NEEDS ADDITIONAL IMAGING EVALUATION Near complete resolution of screening mammography abnormality with additional views. Ultrasound evaluation to confirm resolution is recommended and was performed immediately following this exam. This exam was interpreted at Station ID: [id number]. NOTE: For mammograms, a report in lay terms will be sent to the patient. Approximately 15% of breast malignancies will not be visualized mammographically. In the management of a palpable breast mass, a negative mammogram must not discourage biopsy of a clinically suspicious lesion. Electronically Signed By: Mireille mayer/:04/01/2021 12:32:22 copy to: Mei Turner ACR BI-RADS Category 0: Incomplete 3340F
--- NOTE | 2021-04-01 11:58 | DI.US.S_ITS ---
LIMITED ULTRASOUND OF RIGHT BREAST: 04/01/2021 CLINICAL: Patient returns today to evaluate a focal asymmetry in the right breast. Comparison is made to exams dated: 04/01/2021 mammogram, 03/04/2021 mammogram, 11/23/2019 mammogram, and 11/11/2018 mammogram - [facility]. Ultrasound of the right breast upper outer quadrant was performed. Lopez scale images of the real-time examination were reviewed. No significant abnormalities were seen sonographically in the right breast. Specifically, no finding to correspond to the patient's nearly resolved screening mammographic abnormality. IMPRESSION: PROBABLY BENIGN There is no abnormality seen in the right breast to correspond with the small residual architectural distortion seen on mammography in the superior lateral quadrant. This is probably overlapping glandular tissue. A follow-up right mammogram in 6 months is recommended to demonstrate stability. Findings and recommendations were conveyed to the patient at time of exam. This exam was interpreted at Station ID: [id number]. Electronically Signed By: Mireille mayer/:04/01/2021 13:43:15 copy to: Mei Turner letter sent: Followup Recommended Ultrasound BI-RADS: 3 Probably benign
== END ==
PROVIDERS: PCP Family Medicine; Referring Provider Family Medicine; Visit Provider Family Medicine
DX: R92.8 Other abnormal and inconclusive findings on diagnostic imaging of breast (principal); N64.89 Other specified disorders of breast
CPT/HCPCS: 76642; 77065; G0279

== ENCOUNTER → 2021-10-08 08:41 | Outpatient (CLI) | payer OTHER, SELFPAY ==
--- NOTE | 2021-10-08 08:43 | DI.RAD.S_ITS ---
PROCEDURE: XR SHOULDER LT MIN 2V INDICATIONS: Adhesive capsulitis TECHNIQUE: 3 views of the shoulder were acquired. COMPARISON: None. FINDINGS: Bones: No fractures or dislocations. No suspicious bony lesions. Visualized ribs appear intact. Mild AC joint hypertrophy present. Soft tissues: No suspicious soft tissue calcifications. IMPRESSION: 1. No acute osseous abnormality. 2. Degenerative changes of the acromioclavicular joint. Dictated by: Roger Norwood M.D. on 10/08/2021 at 18:49 Approved by: Roger Norwood M.D. on 10/08/2021 at 18:52
[2021-10-08 11:23] LABS: HEMOLYSIS < 15 (0-50)
[2021-10-08 11:31] LABS: Alanine Aminotransferase 20 IU/L (<35); Albumin 4.1 g/dL (3.5-5.0); Albumin Globulin Ratio 1.5 (1.0-2.8); Alkaline Phosphatase 79 U/L (38-126); Aspartate Aminotransferase 32 IU/L (14-36); Bilirubin Total 0.9 mg/dL (0.2-1.3); Blood Urea Nitrogen 18 mg/dL (7-17); Calcium 8.9 mg/dL (8.4-10.2); Carbon Dioxide 30 mmol/L (22-32); Chloride 102 mmol/L (98-107); Cholesterol 225 mg/dL (140-199); Estimated Glomerular Filt Rate > 60 mL/min (>60); Globulin 2.8 g/dL (1.7-4.1); Glucose 83 mg/dL (80-110); HDL Cholesterol 68 mg/dL (40-60); LDL Cholesterol Calculated 144 mg/dL (<100); Potassium 4.6 mmol/L (3.4-5.1); Sodium 138 mmol/L (137-145); Total Protein 6.9 g/dL (6.3-8.2); Triglycerides 67 mg/dL (35-150)
[2021-10-08 11:39] LABS: Vitamin D 25 Hydroxy (D3) 78.5 ng/mL (30.0-100.0)
[2021-10-08 21:38] LABS: HEMOLYSIS < 15 (0-50); Iron 107 ug/dL (37-170)
[2021-10-08 22:01] LABS: Percent Iron Saturation 40 % (15-50); Total Iron Binding Capacity 266 ug/dL (265-497); Transferrin 213 mg/dL (206-381)
[2021-10-09 00:19] LABS: Vitamin B12 565 pg/mL (239-931)
== END ==
PROVIDERS: PCP Family Medicine; Referring Provider Family Medicine; Visit Provider Family Medicine
DX: E78.5 Hyperlipidemia, unspecified (principal); M77.52 Other enthesopathy of left foot and ankle; M75.00 Adhesive capsulitis of unspecified shoulder; I10 Essential (primary) hypertension; R79.89 Other specified abnormal findings of blood chemistry; G62.9 Polyneuropathy, unspecified
CPT/HCPCS: 36415; 73030; 80053; 80061; 82306; 82607; 83540; 83550

== ENCOUNTER → 2021-10-14 13:46 | Outpatient (CLI) | payer OTHER, SELFPAY ==
--- NOTE | 2021-10-14 13:48 | DI.MG.S_ITS ---
BILATERAL DIGITAL DIAGNOSTIC MAMMOGRAM 3D/2D: 10/14/2021 CLINICAL: Short term follow up of the right breast. Comparison is made to exams dated: 04/01/2021 mammogram, 03/04/2021 mammogram, 11/23/2019 mammogram, 11/11/2018 mammogram, and 04/01/2021 [facility]. The tissue of both breasts is heterogeneously dense. This may lower the sensitivity of mammography. There is an possible irregular asymmetry in the right breast middle depth superior region now seen on the mediolateral oblique view only. This was not seen on the prior ultrasound. No abnormality in the regions of diffuse left breast pain. No other significant masses, calcifications, or other findings are seen in either breast. IMPRESSION: INCOMPLETE: NEEDS ADDITIONAL IMAGING EVALUATION Asymmetry in the right breast is indeterminate. A targeted ultrasound is recommended and will immediately follow. Based on the Tyrer Cuzick model (a risk assessment model) the patient's lifetime risk is 4.9% and her 10 year risk is 0.0%. According to the ACR, ACS, and NCCN guidelines, an annual breast MRI exam along with mammogram is recommended if the patient's lifetime risk is 20% or greater. This exam was interpreted at Station ID: [id number]. NOTE: For mammograms, a report in lay terms will be sent to the patient. Approximately 15% of breast malignancies will not be visualized mammographically. In the management of a palpable breast mass, a negative mammogram must not discourage biopsy of a clinically suspicious lesion. Electronically Signed By: Antonio Skaggs M.D. slc/:10/15/2021 11:54:51 ACR BI-RADS Category 0: Incomplete 3340F
--- NOTE | 2021-10-14 13:48 | DI.US.S_ITS ---
LIMITED ULTRASOUND OF RIGHT BREAST AND AXILLA: 10/14/2021 CLINICAL: Patient returns today to evaluate an asymmetry in the right breast. Comparison is made to exams dated: 10/14/2021 mammogram, 04/01/2021 ultrasound, 04/01/2021 mammogram, 03/04/2021 mammogram, 11/23/2019 mammogram, and 11/11/2018 mammogram - [facility]. Real-time ultrasound of the right breast 12 o'clock, and axilla regions was performed. Lopez scale images of the real-time examination were reviewed. There is a 0.5 cm x 0.4 cm x 0.4 cm oval cyst with a septated internal wall in the right breast at 12 o'clock anterior depth 2 cm from the nipple. This oval cyst is anechoic. This correlates as an incidental finding. Color flow imaging demonstrates that there is no vascularity present. No mass identified to correspond to the asymmetry seen on mammogram. No significant abnormalities were seen sonographically in the right axilla. IMPRESSION: PROBABLY BENIGN The 0.5 cm cyst in the right breast at 12 o'clock anterior depth is benign. No mass identified to correspond to the asymmetry seen on mammogram. A follow-up mammogram and possible ultrasound in 6 months is recommended to demonstrate stability. This exam was interpreted at Station ID: [id number]. Electronically Signed By: Antonio Skaggs M.D. [facility]/:10/15/2021 11:53:35 letter sent: Followup Recommended Ultrasound BI-RADS: 3 Probably benign
== END ==
PROVIDERS: PCP Family Medicine; Referring Provider Family Medicine; Visit Provider Family Medicine
DX: R92.8 Other abnormal and inconclusive findings on diagnostic imaging of breast (principal); N64.4 Mastodynia; N60.01 Solitary cyst of right breast
CPT/HCPCS: 76642; 77066; G0279

== ENCOUNTER 2022-01-22 16:45 | Outpatient (RCR) | payer OTHER, SELFPAY ==
--- NOTE | 2021-11-11 17:52 | PT.OIE ---
Current Diagnoses Pain in left shoulder (11/11/21) Stiffness of left shoulder, not elsewhere classified (11/11/21) Adhesive capsulitis of unspecified shoulder (11/11/21) Past Medical History (Last Updated 09/25/21 @ 16:09 by John Paul Schwab DO) Adhesive capsulitis Elevated LFTs Encounter for screening colonoscopy Hypertension Medication management Migraines Neuropathy Plantar fasciitis Past Surgical History (Last Reviewed 09/25/21 @ 16:00 by John Paul Schwab DO) No pertinent past surgical history Visit Care Team Role Provider Type John Paul Schwab DO Attending Provider Physician Family Provider Primary Care Provider Referring Provider Specialty: Family Practice Address: [address] [place] [address], [facility] Email: [email or web address] Physical Therapy Initial Evaluation PT-OP-A Visit Information Start: 11/11/21 17:29 Freq: Status: Active Protocol: Document 11/11/21 15:15 DCW (Rec: 11/11/21 17:36 DCW [id number]) Out-Patient Physical Therapy Visit Information Visit Information Visit Type Initial Evaluation Visit Start Time 15:15 Visit Stop Time 16:00 Total Visit Minutes 45 Visit Number 1 Number of PHYSICAL THERAPIST TECHNICIAN Visits 0 Evaluation Information Evaluation Date 11/11/21 PT-OP-B Current Condition Start: 11/11/21 17:29 Freq: Status: Active Protocol: Document 11/11/21 15:15 DCW (Rec: 11/11/21 17:52 DCW [id number]) Current Condition History of Current Condition Onset Date six months Current Complaints left shoulder pain and stiffness History of Current Condition Pt is a 76 year old female presenting with a six month history of left shoulder pain and stiffness, idiopathic in origin. Pt notes it is the stiffest and most painful when trying to reach back behind her (external rotation when in 90? abduction). Notes that she had a shoulder x-ray, and was told she had arthritis, and her pain was likely due to frozen shoulder. Places pain at 4/10, but only when she is trying to go into end-range motion. Does not feel that it limits her in any way, but does note she can't sleep as when lying on her left side. Prior Treatments and Tests Shoulder x-ray: IMPRESSION: 1 . No acute osseous abnormality . 2. Degenerative changes of the acromioclavicular joint. per Roger Norwood M.D. on Treatment Goals Patient/Caregiver Goals Improve stiffness and prevent it from worsening. PT-OP-C Subjective Start: 11/11/21 17:29 Freq: Status: Active Protocol: Document 11/11/21 15:15 DCW (Rec: 11/11/21 17:36 DCW [id number]) OP-PT Subjective Patient Comments Patient Comments I think it's pretty minor, but I don't want it to get worse. PT-OP-E Functional Tests Start: 11/11/21 17:29 Freq: Status: Active Protocol: Document 11/11/21 15:15 DCW (Rec: 11/11/21 17:36 DCW [id number]) Functional Tests Apley's Scratch Test Action 1- Left Anterior opposite shoulder Action 1- Right Posterior opposite shoulder Action 2- Left C6 Action 2- Right T4 Action 3- Left L2 Action 3- Right T8 PT-OP-F Manual Assessment Start: 11/11/21 17:29 Freq: Status: Active Protocol: Document 11/11/21 15:15 DCW (Rec: 11/11/21 17:36 DCW [id number]) Manual Assessments Joint Mobility Assessment Joint Mobility Assessment Pt demonstrates stiffness/ capsular resistance with passive ROM in all motions, most notably external and internal rotation. PT-OP-K Range of Motion Start: 11/11/21 17:29 Freq: Status: Active Protocol: Document 11/11/21 15:15 DCW (Rec: 11/11/21 17:36 DCW [id number]) Shoulder Goniometric Range of Motion Shoulder Right Active Shoulder ROM WFL Yes Testing Position Sitting Flexion 180 Abduction 180 External Rotation at 0 degrees Abduction 60 Internal Rotation Behind Back (text) T8 Left Passive Shoulder ROM WFL No Testing Position Sitting Flexion 110 Abduction 110 External Rotation at 0 degrees Abduction 20 Left Active Shoulder ROM WFL No Testing Position Sitting Flexion 120 Abduction 110 External Rotation at 0 degrees Abduction 18 Internal Rotation Behind Back (text) L2 PT-OP-M Strength Start: 11/11/21 17:29 Freq: Status: Active Protocol: Document 11/11/21 15:15 DCW (Rec: 11/11/21 17:36 DCW [id number]) Shoulder Strength Shoulder Manual Muscle Testing Right Flexion 4+ Good+ Abduction (C5) 4+ Good+ External Rotation 4+ Good+ Internal Rotation 4+ Good+ Left Flexion 4 Good Abduction (C5) 4 Good External Rotation 4 Good Internal Rotation 4 Good PT-OP-Q Treatments Start: 11/11/21 17:29 Freq: Status: Active Protocol: Document 11/11/21 15:15 DCW (Rec: 11/11/21 17:36 DCW [id number]) Therapeutic Exercises Supine Exercises ER Supine Exercise Name Shoulder ER AAROM Side left Equipment Used PVC Abduction Supine Exercise Name Shoulder abduction AAROM Side left Equipment Used PVC Flexion Supine Exercise Name Shoulder flexion AAROM Side left Equipment Used PVC PT-OP-T Assessment and Plan Start: 11/11/21 17:29 Freq: Status: Active Protocol: Document 11/11/21 15:15 DCW (Rec: 11/11/21 17:52 DC [id number]) Physical Therapy Assessment Rehab Potential Rehabilitation Potential Excellent Evaluation Complexity Number of Personal Factors/Comorbidities 0 Number of Body Systems Impaired 1-2 Clinical Presentation at Evaluation Stable Impairments Impairments Activity Tolerance,Pain,ROM, Strength,Tone Goals Three Impairment Left shoulder external rotation limited to 18? Pc Network Technician Goal (LTG) Pt to improve left shoulder external rotation to >45? in order to improve ability to style her hair. LTG Duration 01/11/22 Two Impairment Pt unable to sleep in her preferred position of left sidelying Pc Network Technician Goal (LTG) Pt to return to prior sleeping position of left sidelying without increased pain in order to improve sleep habits LTG Duration 01/11/22 One Impairment Pt does not have an appropriate home exercise program Short Term Goal (STG) Pt to be independent and compliant with an appropriate HEP STG Duration 12/12/21 Assessment Summary Assessment Pt presents with signs and symptoms consistent with referring diagnosis of left- sided adhesive capsulitis. Both active and passive shoulder ROM fairly limited, with flexion between 110-120?, abduction 110?, and ER 18-20? . Pt has some general left weakness, however overall not much different from right MMT. Does tolerate stretching very well, discussed importance of feeling a stretch but not overdoing it. Pt motivated to participate with her HEP, looking forward to improved left arm function. Pt will likely benefit from skilled therapy focusing on passive and active ROM, general strengthening, and STM/joint mobilizations. Physical Therapy Plan Frequency and Duration Frequency of Treatment 2x/Week Duration of Treatment Two months Plan of Care Start Date 11/11/21 Plan of Care End Date 01/11/22 Therapeutic Interventions Therapeutic Interventions Home Exercise Program,Joint Mobilizations,Manual Therapy, Patient/Caregiver Education, Self-Care/Home Management,Soft Tissue Mobilization, Therapeutic Activities, Therapeutic Exercises Modalities Cold Pack/Ice Massage,Electric Stimulation,Hot Packs, Ultrasound Next Visit Focus/Plan Next Note Type Treatment Note Next Visit Plan AROM/PROM, strengthening, STM, joint mobilizations
--- NOTE | 2021-11-11 17:53 | PT.OPPOC ---
Physical, Occupational & Speech Therapy At [facility] Current Diagnoses Pain in left shoulder (11/11/21) Stiffness of left shoulder, not elsewhere classified (11/11/21) Adhesive capsulitis of unspecified shoulder (11/11/21) Visit Care Team Role Provider Type John Paul Schwab DO Attending Provider Physician Family Provider Primary Care Provider Referring Provider Specialty: [facility] Address: [address] [place] [address], [facility] Email: [email or web address] Plan Of Care PT-OP-T Assessment and Plan Start: 11/11/21 17:29 Freq: Status: Active Protocol: Document 11/11/21 15:15 DCW (Rec: 11/11/21 17:52 DCW [id number]) Physical Therapy Assessment Rehab Potential Rehabilitation Potential Excellent Evaluation Complexity Number of Personal Factors/Comorbidities 0 Number of Body Systems Impaired 1-2 Clinical Presentation at Evaluation Stable Impairments Impairments Activity Tolerance,Pain,ROM, Strength,Tone Goals Three Impairment Left shoulder external rotation limited to 18? Group Home Goal (LTG) Pt to improve left shoulder external rotation to >45? in order to improve ability to style her hair. LTG Duration 01/11/22 Two Impairment Pt unable to sleep in her preferred position of left sidelying Group Home Goal (LTG) Pt to return to prior sleeping position of left sidelying without increased pain in order to improve sleep habits LTG Duration 01/11/22 One Impairment Pt does not have an appropriate home exercise program Short Term Goal (STG) Pt to be independent and compliant with an appropriate HEP STG Duration 12/12/21 Assessment Summary Assessment Pt presents with signs and symptoms consistent with referring diagnosis of left- sided adhesive capsulitis. Both active and passive shoulder ROM fairly limited, with flexion between 110-120?, abduction 110?, and ER 18-20? . Pt has some general left weakness, however overall not much different from right MMT. Does tolerate stretching very well, discussed importance of feeling a stretch but not overdoing it. Pt motivated to participate with her HEP, looking forward to improved left arm function. Pt will likely benefit from skilled therapy focusing on passive and active ROM, general strengthening, and STM/joint mobilizations. Physical Therapy Plan Frequency and Duration Frequency of Treatment 2x/Week Duration of Treatment Two months Plan of Care Start Date 11/11/21 Plan of Care End Date 01/11/22 Therapeutic Interventions Therapeutic Interventions Home Exercise Program,Joint Mobilizations,Manual Therapy, Patient/Caregiver Education, Self-Care/Home Management,Soft Tissue Mobilization, Therapeutic Activities, Therapeutic Exercises Modalities Cold Pack/Ice Massage,Electric Stimulation,Hot Packs, Ultrasound Next Visit Focus/Plan Next Note Type Treatment Note Next Visit Plan AROM/PROM, strengthening, STM, joint mobilizations Plan of Care Dates Plan of Care Start Date 11/11/21 Plan of Care End Date 01/11/22 Electronically Signed by: Rom Rutledge, PT 11/11/21 1976 If you are in agreement with this Plan of Care, please return a signed and dated copy. I have reviewed this Plan of Care and certify that the skilled therapy services above are required to meet the patient?s needs. Physician Signature Date Printed Name and Credentials Clinical Instructor Signature Printed Name and Credentials
--- NOTE | 2021-11-14 16:44 | PT.OTN ---
Current Diagnoses Pain in left shoulder (11/14/21) Stiffness of left shoulder, not elsewhere classified (11/14/21) Adhesive capsulitis of unspecified shoulder (11/14/21) Physical Therapy Treatment Note PT-OP-A Visit Information Start: 11/11/21 17:29 Freq: Status: Active Protocol: Document 11/14/21 16:00 DCW (Rec: 11/14/21 16:44 DCW [id number]) Out-Patient Physical Therapy Visit Information Visit Information Visit Type Treatment Note Visit Start Time 16:00 Visit Stop Time 16:45 Total Visit Minutes 45 Visit Number 2 Number of SENIOR MARKETING SPECIALIST Visits 0 Evaluation Information Evaluation Date 11/11/21 PT-OP-B Current Condition Start: 11/11/21 17:29 Freq: Status: Active Protocol: Document 11/11/21 15:15 DCW (Rec: 11/11/21 17:52 DCW [id number]) Current Condition History of Current Condition Onset Date six months Current Complaints left shoulder pain and stiffness History of Current Condition Pt is a 76 year old female presenting with a six month history of left shoulder pain and stiffness, idiopathic in origin. Pt notes it is the stiffest and most painful when trying to reach back behind her (external rotation when in 90? abduction). Notes that she had a shoulder x-ray, and was told she had arthritis, and her pain was likely due to frozen shoulder. Places pain at 4/10, but only when she is trying to go into end-range motion. Does not feel that it limits her in any way, but does note she can't sleep as when lying on her left side. Prior Treatments and Tests Shoulder x-ray: IMPRESSION: 1 . No acute osseous abnormality . 2. Degenerative changes of the acromioclavicular joint. per Roger Norwood M.D. on Treatment Goals Patient/Caregiver Goals Improve stiffness and prevent it from worsening. PT-OP-C Subjective Start: 11/11/21 17:29 Freq: Status: Active Protocol: Document 11/14/21 16:00 DCW (Rec: 11/14/21 16:44 DCW [id number]) OP-PT Subjective Patient Comments Patient Comments I've been faithful with my exercises, I can't say I'm seeing a big difference yet, but it's only been two days. PT-OP-E Functional Tests Start: 11/11/21 17:29 Freq: Status: Active Protocol: Document 11/11/21 15:15 DCW (Rec: 11/11/21 17:36 DCW [id number]) Functional Tests Apley's Scratch Test Action 1- Left Anterior opposite shoulder Action 1- Right Posterior opposite shoulder Action 2- Left C6 Action 2- Right T4 Action 3- Left L2 Action 3- Right T8 PT-OP-F Manual Assessment Start: 11/11/21 17:29 Freq: Status: Active Protocol: Document 11/11/21 15:15 DCW (Rec: 11/11/21 17:36 DCW [id number]) Manual Assessments Joint Mobility Assessment Joint Mobility Assessment Pt demonstrates stiffness/ capsular resistance with passive ROM in all motions, most notably external and internal rotation. PT-OP-K Range of Motion Start: 11/11/21 17:29 Freq: Status: Active Protocol: Document 11/11/21 15:15 DCW (Rec: 11/11/21 17:36 DCW [id number]) Shoulder Goniometric Range of Motion Shoulder Right Active Shoulder ROM WFL Yes Testing Position Sitting Flexion 180 Abduction 180 External Rotation at 0 degrees Abduction 60 Internal Rotation Behind Back (text) T8 Left Passive Shoulder ROM WFL No Testing Position Sitting Flexion 110 Abduction 110 External Rotation at 0 degrees Abduction 20 Left Active Shoulder ROM WFL No Testing Position Sitting Flexion 120 Abduction 110 External Rotation at 0 degrees Abduction 18 Internal Rotation Behind Back (text) L2 PT-OP-M Strength Start: 11/11/21 17:29 Freq: Status: Active Protocol: Document 11/11/21 15:15 DCW (Rec: 11/11/21 17:36 DCW [id number]) Shoulder Strength Shoulder Manual Muscle Testing Right Flexion 4+ Good+ Abduction (C5) 4+ Good+ External Rotation 4+ Good+ Internal Rotation 4+ Good+ Left Flexion 4 Good Abduction (C5) 4 Good External Rotation 4 Good Internal Rotation 4 Good PT-OP-Q Treatments Start: 11/11/21 17:29 Freq: Status: Active Protocol: Document 11/14/21 16:00 DCW (Rec: 11/14/21 16:44 DCW [id number]) Therapeutic Exercises Sitting Exercises Pulleys Sitting Exercise Name Flexion/Abduction AAROM Side bilateral Standing Exercises Pulleys Standing Exercise Name Standing IR Side bilateral Manual Therapy Treatment Soft Tissue Mobilization Upper Trap Body Location L UT, Scalenes Mobilization Type Sustained Pressure,Trigger Point Release Body Position Supine Joint Mobilizations GH Joint L GH Direction Sup->Inf Grade III Other Other Manual Treatments Therapist-driven PROM PT-OP-T Assessment and Plan Start: 11/11/21 17:29 Freq: Status: Active Protocol: Document 11/14/21 16:00 DCW (Rec: 11/14/21 16:44 DCW [id number]) Physical Therapy Assessment Impairments Impairments Activity Tolerance,Pain,ROM, Strength,Tone Goals Three Impairment Left shoulder external rotation limited to 18? Intermediate Goal (LTG) Pt to improve left shoulder external rotation to >45? in order to improve ability to style her hair. LTG Duration 01/11/22 Two Impairment Pt unable to sleep in her preferred position of left sidelying Service Station Cashier Goal (LTG) Pt to return to prior sleeping position of left sidelying without increased pain in order to improve sleep habits LTG Duration 01/11/22 One Impairment Pt does not have an appropriate home exercise program Short Term Goal (STG) Pt to be independent and compliant with an appropriate HEP STG Duration 12/12/21 Assessment Summary Assessment Pt tolerated treatment very well, felt less stiff following workout and manual treatment, ER improved from 18 ? to 40?. Physical Therapy Plan Frequency and Duration Frequency of Treatment 2x/Week Duration of Treatment Two months Plan of Care Start Date 11/11/21 Plan of Care End Date 01/11/22 Therapeutic Interventions Therapeutic Interventions Home Exercise Program,Joint Mobilizations,Manual Therapy, Patient/Caregiver Education, Self-Care/Home Management,Soft Tissue Mobilization, Therapeutic Activities, Therapeutic Exercises Modalities Cold Pack/Ice Massage,Electric Stimulation,Hot Packs, Ultrasound Next Visit Focus/Plan Next Note Type Treatment Note Next Visit Plan AROM/PROM, strengthening, STM, joint mobilizations
--- NOTE | 2021-11-18 17:25 | PT.OTN ---
Current Diagnoses Pain in left shoulder (11/18/21) Stiffness of left shoulder, not elsewhere classified (11/18/21) Adhesive capsulitis of unspecified shoulder (11/18/21) Physical Therapy Treatment Note PT-OP-A Visit Information Start: 11/11/21 17:29 Freq: Status: Active Protocol: Document 11/18/21 14:38 NBM (Rec: 11/18/21 17:24 NBM [id number]) Out-Patient Physical Therapy Visit Information Visit Information Visit Type Treatment Note Visit Start Time 14:32 Visit Stop Time 15:12 Total Visit Minutes 40 Visit Number 3 Number of CORRECTIONAL CASE MANAGER Visits 1 PT-OP-B Current Condition Start: 11/11/21 17:29 Freq: Status: Active Protocol: Document 11/11/21 15:15 DCW (Rec: 11/11/21 17:52 DCW [id number]) Current Condition History of Current Condition Onset Date six months Current Complaints left shoulder pain and stiffness History of Current Condition Pt is a 76 year old female presenting with a six month history of left shoulder pain and stiffness, idiopathic in origin. Pt notes it is the stiffest and most painful when trying to reach back behind her (external rotation when in 90? abduction). Notes that she had a shoulder x-ray, and was told she had arthritis, and her pain was likely due to frozen shoulder. Places pain at 4/10, but only when she is trying to go into end-range motion. Does not feel that it limits her in any way, but does note she can't sleep as when lying on her left side. Prior Treatments and Tests Shoulder x-ray: IMPRESSION: 1 . No acute osseous abnormality . 2. Degenerative changes of the acromioclavicular joint. per Roger Norwood M.D. on Treatment Goals Patient/Caregiver Goals Improve stiffness and prevent it from worsening. PT-OP-C Subjective Start: 11/11/21 17:29 Freq: Status: Active Protocol: Document 11/18/21 14:38 NBM (Rec: 11/18/21 17:24 NBM [id number]) OP-PT Subjective Patient Comments Patient Comments Pt states L shoulder is doing better overall but her neck has been bothering her more. She can move her shoulder further without pain but thinks there is one exercise she is doing wrong because it causes elbow pain. PT-OP-E Functional Tests Start: 11/11/21 17:29 Freq: Status: Active Protocol: Document 11/11/21 15:15 DCW (Rec: 11/11/21 17:36 DCW [id number]) Functional Tests Apley's Scratch Test Action 1- Left Anterior opposite shoulder Action 1- Right Posterior opposite shoulder Action 2- Left C6 Action 2- Right T4 Action 3- Left L2 Action 3- Right T8 PT-OP-F Manual Assessment Start: 11/11/21 17:29 Freq: Status: Active Protocol: Document 11/11/21 15:15 DCW (Rec: 11/11/21 17:36 DCW [id number]) Manual Assessments Joint Mobility Assessment Joint Mobility Assessment Pt demonstrates stiffness/ capsular resistance with passive ROM in all motions, most notably external and internal rotation. PT-OP-K Range of Motion Start: 11/11/21 17:29 Freq: Status: Active Protocol: Document 11/11/21 15:15 DCW (Rec: 11/11/21 17:36 DCW [id number]) Shoulder Goniometric Range of Motion Shoulder Right Active Shoulder ROM WFL Yes Testing Position Sitting Flexion 180 Abduction 180 External Rotation at 0 degrees Abduction 60 Internal Rotation Behind Back (text) T8 Left Passive Shoulder ROM WFL No Testing Position Sitting Flexion 110 Abduction 110 External Rotation at 0 degrees Abduction 20 Left Active Shoulder ROM WFL No Testing Position Sitting Flexion 120 Abduction 110 External Rotation at 0 degrees Abduction 18 Internal Rotation Behind Back (text) L2 PT-OP-M Strength Start: 11/11/21 17:29 Freq: Status: Active Protocol: Document 11/11/21 15:15 DCW (Rec: 11/11/21 17:36 DCW [id number]) Shoulder Strength Shoulder Manual Muscle Testing Right Flexion 4+ Good+ Abduction (C5) 4+ Good+ External Rotation 4+ Good+ Internal Rotation 4+ Good+ Left Flexion 4 Good Abduction (C5) 4 Good External Rotation 4 Good Internal Rotation 4 Good PT-OP-Q Treatments Start: 11/11/21 17:29 Freq: Status: Active Protocol: Document 11/18/21 14:38 NBM (Rec: 11/18/21 17:24 NBM [id number]) Therapeutic Exercises Supine Exercises ER Supine Exercise Name Shoulder ER AAROM Side left Equipment Used purple wand Comments pt c/o of elbow pn during - cues not to extend wrist Abduction Supine Exercise Name Shoulder abduction AAROM Side left Equipment Used purple wand Flexion Supine Exercise Name Shoulder flexion AAROM Side left Equipment Used purple wand Sitting Exercises Pulleys Sitting Exercise Name Flexion/Abduction AAROM Side bilateral Manual Therapy Treatment Soft Tissue Mobilization Pec Body Location L pectoralis Mobilization Type Cross-Friction,Oscillations, Strumming Intensity/Depth Moderate Body Position Hooklying Upper Trap Body Location L UT, scalenes Mobilization Type Sustained Pressure,Trigger Point Release Body Position Supine Joint Mobilizations GH Joint L GH Direction Sup->Inf Grade II Other Other Manual Treatments Therapist-driven PROM PT-OP-R Modalities Start: 11/11/21 17:29 Freq: Status: Active Protocol: Document 11/18/21 14:38 NBM (Rec: 11/18/21 17:24 [facility] [place] [id number]) Hot Pack/Cold Pack Treatment Hot Pack Location L shoulder Patient Position Hooklying Treatment Duration (minutes) 10 Patient Tolerance Good Comments cervical hot pack PT-OP-T Assessment and Plan Start: 11/11/21 17:29 Freq: Status: Active Protocol: Document 11/18/21 14:38 NBM (Rec: 11/18/21 17:24 [facility] [place] [id number]) Physical Therapy Assessment Goals Three Impairment Left shoulder external rotation limited to 18? Licensing Director Goal (LTG) Pt to improve left shoulder external rotation to >45? in order to improve ability to style her hair. LTG Duration 01/11/22 Two Impairment Pt unable to sleep in her preferred position of left sidelying Longterm Goal (LTG) Pt to return to prior sleeping position of left sidelying without increased pain in order to improve sleep habits LTG Duration 01/11/22 One Impairment Pt does not have an appropriate home exercise program Short Term Goal (STG) Pt to be independent and compliant with an appropriate HEP STG Duration 12/12/21 Assessment Summary Assessment Treatment focus today on improving ROM, HEP review, and manual therapy. Pt requires cueing to avoid wrist extension w/ supine shoulder ER AAROM, which may have contributed to L elbow pain when performing. Pt requires cues throughout treatment session to stay w/in pain-free range. HEP compliant. Pt will benefit from continued skilled therapeutic intervention. Physical Therapy Plan Next Visit Focus/Plan Next Note Type Treatment Note Next Visit Plan AROM/PROM, strengthening, STM, joint mobilizations
--- NOTE | 2021-11-21 10:30 | PT.OTN ---
Current Diagnoses Pain in left shoulder (11/21/21) Stiffness of left shoulder, not elsewhere classified (11/21/21) Adhesive capsulitis of unspecified shoulder (11/21/21) Physical Therapy Treatment Note PT-OP-A Visit Information Start: 11/11/21 17:29 Freq: Status: Active Protocol: Document 11/21/21 09:47 DCW (Rec: 11/21/21 10:30 DCW [id number]) Out-Patient Physical Therapy Visit Information Visit Information Visit Type Treatment Note Visit Start Time 09:47 Visit Stop Time 10:30 Total Visit Minutes 43 Visit Number 4 Number of COSMETOLOGY TEACHER Visits 0 Evaluation Information Evaluation Date 11/11/21 PT-OP-B Current Condition Start: 11/11/21 17:29 Freq: Status: Active Protocol: Document 11/11/21 15:15 DCW (Rec: 11/11/21 17:52 DCW [id number]) Current Condition History of Current Condition Onset Date six months Current Complaints left shoulder pain and stiffness History of Current Condition Pt is a 76 year old female presenting with a six month history of left shoulder pain and stiffness, idiopathic in origin. Pt notes it is the stiffest and most painful when trying to reach back behind her (external rotation when in 90? abduction). Notes that she had a shoulder x-ray, and was told she had arthritis, and her pain was likely due to frozen shoulder. Places pain at 4/10, but only when she is trying to go into end-range motion. Does not feel that it limits her in any way, but does note she can't sleep as when lying on her left side. Prior Treatments and Tests Shoulder x-ray: IMPRESSION: 1 . No acute osseous abnormality . 2. Degenerative changes of the acromioclavicular joint. per Roger Norwood M.D. on Treatment Goals Patient/Caregiver Goals Improve stiffness and prevent it from worsening. PT-OP-C Subjective Start: 11/11/21 17:29 Freq: Status: Active Protocol: Document 11/21/21 09:47 DCW (Rec: 11/21/21 10:30 DCW [id number]) OP-PT Subjective Patient Comments Patient Comments I think it's getting better. PT-OP-E Functional Tests Start: 11/11/21 17:29 Freq: Status: Active Protocol: Document 11/11/21 15:15 DCW (Rec: 11/11/21 17:36 DCW [id number]) Functional Tests Apley's Scratch Test Action 1- Left Anterior opposite shoulder Action 1- Right Posterior opposite shoulder Action 2- Left C6 Action 2- Right T4 Action 3- Left L2 Action 3- Right T8 PT-OP-F Manual Assessment Start: 11/11/21 17:29 Freq: Status: Active Protocol: Document 11/11/21 15:15 DCW (Rec: 11/11/21 17:36 DCW [id number]) Manual Assessments Joint Mobility Assessment Joint Mobility Assessment Pt demonstrates stiffness/ capsular resistance with passive ROM in all motions, most notably external and internal rotation. PT-OP-K Range of Motion Start: 11/11/21 17:29 Freq: Status: Active Protocol: Document 11/11/21 15:15 DCW (Rec: 11/11/21 17:36 DCW [id number]) Shoulder Goniometric Range of Motion Shoulder Right Active Shoulder ROM WFL Yes Testing Position Sitting Flexion 180 Abduction 180 External Rotation at 0 degrees Abduction 60 Internal Rotation Behind Back (text) T8 Left Passive Shoulder ROM WFL No Testing Position Sitting Flexion 110 Abduction 110 External Rotation at 0 degrees Abduction 20 Left Active Shoulder ROM WFL No Testing Position Sitting Flexion 120 Abduction 110 External Rotation at 0 degrees Abduction 18 Internal Rotation Behind Back (text) L2 PT-OP-M Strength Start: 11/11/21 17:29 Freq: Status: Active Protocol: Document 11/11/21 15:15 DCW (Rec: 11/11/21 17:36 DCW [id number]) Shoulder Strength Shoulder Manual Muscle Testing Right Flexion 4+ Good+ Abduction (C5) 4+ Good+ External Rotation 4+ Good+ Internal Rotation 4+ Good+ Left Flexion 4 Good Abduction (C5) 4 Good External Rotation 4 Good Internal Rotation 4 Good PT-OP-Q Treatments Start: 11/11/21 17:29 Freq: Status: Active Protocol: Document 11/21/21 09:47 DCW (Rec: 11/21/21 10:30 DCW [id number]) Therapeutic Exercises Supine Exercises ER Supine Exercise Name Shoulder ER AAROM Side left Equipment Used purple wand Abduction Supine Exercise Name Shoulder abduction AAROM Side left Equipment Used purple wand Flexion Supine Exercise Name Shoulder flexion AAROM Side left Equipment Used purple wand Sitting Exercises Pulleys Sitting Exercise Name Flexion/Abduction AAROM Side bilateral Standing Exercises Pulleys Standing Exercise Name Standing IR Side bilateral Manual Therapy Treatment Soft Tissue Mobilization Upper Trap Body Location L UT, Scalenes Mobilization Type Sustained Pressure,Trigger Point Release Body Position Supine Joint Mobilizations GH Joint L GH Direction Sup->Inf Grade III Other Other Manual Treatments Therapist-driven PROM PT-OP-R Modalities Start: 11/11/21 17:29 Freq: Status: Active Protocol: Document 11/18/21 14:38 NBM (Rec: 11/18/21 17:24 NBM [id number]) Hot Pack/Cold Pack Treatment Hot Pack Location L shoulder Patient Position Hooklying Treatment Duration (minutes) 10 Patient Tolerance Good Comments cervical hot pack PT-OP-T Assessment and Plan Start: 11/11/21 17:29 Freq: Status: Active Protocol: Document 11/21/21 09:47 DCW (Rec: 11/21/21 10:30 DCW [id number]) Physical Therapy Assessment Impairments Impairments Activity Tolerance,Pain,ROM, Strength,Tone Goals Three Impairment Left shoulder external rotation limited to 18? Smokehouse Operator Goal (LTG) Pt to improve left shoulder external rotation to >45? in order to improve ability to style her hair. LTG Duration 01/11/22 Two Impairment Pt unable to sleep in her preferred position of left sidelying Group Home Goal (LTG) Pt to return to prior sleeping position of left sidelying without increased pain in order to improve sleep habits LTG Duration 01/11/22 One Impairment Pt does not have an appropriate home exercise program Short Term Goal (STG) Pt to be independent and compliant with an appropriate HEP STG Duration 12/12/21 Assessment Summary Assessment Pt showing very good improvement with both passive and active ROM, showing good compliance with HEP. Physical Therapy Plan Frequency and Duration Frequency of Treatment 2x/Week Duration of Treatment Two months Plan of Care Start Date 11/11/21 Plan of Care End Date 01/11/22 Therapeutic Interventions Therapeutic Interventions Home Exercise Program,Joint Mobilizations,Manual Therapy, Patient/Caregiver Education, Self-Care/Home Management,Soft Tissue Mobilization, Therapeutic Activities, Therapeutic Exercises Modalities Cold Pack/Ice Massage,Electric Stimulation,Hot Packs, Ultrasound Next Visit Focus/Plan Next Note Type Treatment Note Next Visit Plan AROM/PROM, strengthening, STM, joint mobilizations
--- NOTE | 2021-11-25 15:25 | PT.OTN ---
Current Diagnoses Pain in left shoulder (11/25/21) Stiffness of left shoulder, not elsewhere classified (11/25/21) Adhesive capsulitis of unspecified shoulder (11/25/21) Physical Therapy Treatment Note PT-OP-A Visit Information Start: 11/11/21 17:29 Freq: Status: Active Protocol: Document 11/25/21 14:37 SP (Rec: 11/25/21 15:32 SP [id number]) Out-Patient Physical Therapy Visit Information Visit Information Visit Type Treatment Note Visit Start Time 14:37 Visit Stop Time 15:25 Total Visit Minutes 48 Visit Number 5 Number of INK BLENDER Visits 1 Evaluation Information Evaluation Date 11/11/21 PT-OP-B Current Condition Start: 11/11/21 17:29 Freq: Status: Active Protocol: Document 11/11/21 15:15 DCW (Rec: 11/11/21 17:52 DCW [id number]) Current Condition History of Current Condition Onset Date six months Current Complaints left shoulder pain and stiffness History of Current Condition Pt is a 76 year old female presenting with a six month history of left shoulder pain and stiffness, idiopathic in origin. Pt notes it is the stiffest and most painful when trying to reach back behind her (external rotation when in 90? abduction). Notes that she had a shoulder x-ray, and was told she had arthritis, and her pain was likely due to frozen shoulder. Places pain at 4/10, but only when she is trying to go into end-range motion. Does not feel that it limits her in any way, but does note she can't sleep as when lying on her left side. Prior Treatments and Tests Shoulder x-ray: IMPRESSION: 1 . No acute osseous abnormality . 2. Degenerative changes of the acromioclavicular joint. per Roger Norwood M.D. on Treatment Goals Patient/Caregiver Goals Improve stiffness and prevent it from worsening. PT-OP-C Subjective Start: 11/11/21 17:29 Freq: Status: Active Protocol: Document 11/25/21 14:37 SP (Rec: 11/25/21 15:32 SP [id number]) OP-PT Subjective Patient Comments Patient Comments Pt reported feels getting better and still not full ABD and ER but making gains. PT-OP-E Functional Tests Start: 11/11/21 17:29 Freq: Status: Active Protocol: Document 11/11/21 15:15 DCW (Rec: 11/11/21 17:36 DCW [id number]) Functional Tests Apley's Scratch Test Action 1- Left Anterior opposite shoulder Action 1- Right Posterior opposite shoulder Action 2- Left C6 Action 2- Right T4 Action 3- Left L2 Action 3- Right T8 PT-OP-F Manual Assessment Start: 11/11/21 17:29 Freq: Status: Active Protocol: Document 11/11/21 15:15 DCW (Rec: 11/11/21 17:36 DCW [id number]) Manual Assessments Joint Mobility Assessment Joint Mobility Assessment Pt demonstrates stiffness/ capsular resistance with passive ROM in all motions, most notably external and internal rotation. PT-OP-K Range of Motion Start: 11/11/21 17:29 Freq: Status: Active Protocol: Document 11/25/21 14:37 SP (Rec: 11/25/21 15:32 SP [id number]) Shoulder Goniometric Range of Motion Shoulder Left Passive Shoulder ROM WFL No Testing Position Sitting Flexion 155 Abduction 126 External Rotation at 0 degrees Abduction 45 Comments Improved: FF by 45 deg, ABD 15 deg, 25 deg ER. Left Active Shoulder ROM WFL No Testing Position Sitting Flexion 128 Abduction 110 External Rotation at 0 degrees Abduction 45 Internal Rotation Behind Back (text) L2 Comments improve ER by 27 deg, FF by 8 deg, ABD same 110 deg PT-OP-M Strength Start: 11/11/21 17:29 Freq: Status: Active Protocol: Document 11/11/21 15:15 DCW (Rec: 11/11/21 17:36 DCW [id number]) Shoulder Strength Shoulder Manual Muscle Testing Right Flexion 4+ Good+ Abduction (C5) 4+ Good+ External Rotation 4+ Good+ Internal Rotation 4+ Good+ Left Flexion 4 Good Abduction (C5) 4 Good External Rotation 4 Good Internal Rotation 4 Good PT-OP-Q Treatments Start: 11/11/21 17:29 Freq: Status: Active Protocol: Document 11/25/21 14:37 SP (Rec: 11/25/21 15:32 SP [id number]) Therapeutic Exercises Supine Exercises ER Supine Exercise Name Shoulder ER AAROM Side left Equipment Used purple wand Reps/Minutes x10 Comments cued no UT recruitment Abduction Supine Exercise Name Shoulder abduction AAROM Side left Equipment Used purple wand Reps/Minutes x10 Comments cued no UT recruitment Flexion Supine Exercise Name Shoulder flexion AAROM Side left Equipment Used purple wand Reps/Minutes x10 Sidelying Exercises ER Sidelying Exercise Name added to HEP Side left Resistance AROM Equipment Used towel under arm Reps/Minutes 2x10 Comments cued stacked on side, low to painfree ROM with benefical gains abd Sidelying Exercise Name added to HEP Side left Resistance AROM [place] Reps/Minutes x10 reps Comments cued stacked on side open book Sidelying Exercise Name added to HEP Side bilateral Resistance AROM R>L Equipment Used cued stacked on side Reps/Minutes x5 reps Comments cued x1 for head turn with arm , slow scapular glide Standing Exercises wall walking Standing Exercise Name added to HEP: FF, ABD, abd w/ ER Side left Resistance AAROM Equipment Used door frame Reps/Minutes 10 s x10 Comments cued set up and form, no UT recruitment Manual Therapy Treatment Soft Tissue Mobilization Pec Body Location L pectoralis, deltoid, prox bicep Mobilization Type Cross-Friction,Myofascial Release,Rolling Intensity/Depth Moderate Body Position Hooklying Joint Mobilizations scapulthoracic Joint L Direction retraction/depression Grade II Body Position Sidelying Comments manual and AAROM, with instruction on scapular glide during HEP. GH Joint L GH Direction Sup->Inf, AP Grade II Comments manual and instruction on inferior glide during scapular HEP PT-OP-R Modalities Start: 11/11/21 17:29 Freq: Status: Active Protocol: Document 11/18/21 14:38 NBM (Rec: 11/18/21 17:24 NBM [id number]) Hot Pack/Cold Pack Treatment Hot Pack Location L shoulder Patient Position Hooklying Treatment Duration (minutes) 10 Patient Tolerance Good Comments cervical hot pack PT-OP-T Assessment and Plan Start: 11/11/21 17:29 Freq: Status: Active Protocol: Document 11/25/21 14:37 SP (Rec: 11/25/21 15:32 SP [id number]) Physical Therapy Assessment Goals Three Impairment Left shoulder external rotation limited to 18? Mining Helper Goal (LTG) Pt to improve left shoulder external rotation to >45? in order to improve ability to style her hair. LTG Duration 01/11/22 Two Impairment Pt unable to sleep in her preferred position of left sidelying Residential Goal (LTG) Pt to return to prior sleeping position of left sidelying without increased pain in order to improve sleep habits LTG Duration 01/11/22 One Impairment Pt does not have an appropriate home exercise program Short Term Goal (STG) Pt to be independent and compliant with an appropriate HEP STG Duration 12/12/21 Progress Towards Goals Progress Towards Goals Progressing Toward Goals Progress Comments Improved L shld PROM: FF by 45 deg, ABD 15 deg, 25 deg ER. L shld AROM: ER by 27 deg, FF by 8 deg, ABD same 110 deg Assessment Summary Assessment Pt making gains in L UE AROM and PROM. She responds well to added AROM against gravity and support standing utilizing wall for support to HEP today . Cued for no UT recruitment awareness. Physical Therapy Plan Frequency and Duration Frequency of Treatment 2x/Week Duration of Treatment Two months Plan of Care Start Date 11/11/21 Plan of Care End Date 01/11/22 Therapeutic Interventions Therapeutic Interventions Home Exercise Program,Joint Mobilizations,Manual Therapy, Patient/Caregiver Education, Self-Care/Home Management,Soft Tissue Mobilization, Therapeutic Activities, Therapeutic Exercises Modalities Cold Pack/Ice Massage,Electric Stimulation,Hot Packs, Ultrasound Next Visit Focus/Plan Next Note Type Treatment Note Next Visit Plan Recheck added side and standing HEP, progress per POC : AROM/PROM, strengthening, STM, joint mobilizations
--- NOTE | 2021-11-28 15:58 | PT.OTN ---
Current Diagnoses Pain in left shoulder (11/28/21) Stiffness of left shoulder, not elsewhere classified (11/28/21) Adhesive capsulitis of unspecified shoulder (11/28/21) Physical Therapy Treatment Note PT-OP-A Visit Information Start: 11/11/21 17:29 Freq: Status: Active Protocol: Document 11/28/21 15:18 DCW (Rec: 11/28/21 15:58 DCW [id number]) Out-Patient Physical Therapy Visit Information Visit Information Visit Type Treatment Note Visit Start Time 15:18 Visit Stop Time 16:00 Total Visit Minutes 43 Visit Number 6 Number of AERIAL SPRAYER Visits 0 Evaluation Information Evaluation Date 11/11/21 PT-OP-B Current Condition Start: 11/11/21 17:29 Freq: Status: Active Protocol: Document 11/11/21 15:15 DCW (Rec: 11/11/21 17:52 DCW [id number]) Current Condition History of Current Condition Onset Date six months Current Complaints left shoulder pain and stiffness History of Current Condition Pt is a 76 year old female presenting with a six month history of left shoulder pain and stiffness, idiopathic in origin. Pt notes it is the stiffest and most painful when trying to reach back behind her (external rotation when in 90? abduction). Notes that she had a shoulder x-ray, and was told she had arthritis, and her pain was likely due to frozen shoulder. Places pain at 4/10, but only when she is trying to go into end-range motion. Does not feel that it limits her in any way, but does note she can't sleep as when lying on her left side. Prior Treatments and Tests Shoulder x-ray: IMPRESSION: 1 . No acute osseous abnormality . 2. Degenerative changes of the acromioclavicular joint. per Roger Norwood M.D. on Treatment Goals Patient/Caregiver Goals Improve stiffness and prevent it from worsening. PT-OP-C Subjective Start: 11/11/21 17:29 Freq: Status: Active Protocol: Document 11/28/21 15:18 DCW (Rec: 11/28/21 15:58 DCW [id number]) OP-PT Subjective Patient Comments Patient Comments I'm going to be in [place] for the next three weeks, and then I couldn't get in on the schedule for a few weeks after I get back. PT-OP-E Functional Tests Start: 11/11/21 17:29 Freq: Status: Active Protocol: Document 11/11/21 15:15 DCW (Rec: 11/11/21 17:36 DCW [id number]) Functional Tests Apley's Scratch Test Action 1- Left Anterior opposite shoulder Action 1- Right Posterior opposite shoulder Action 2- Left C6 Action 2- Right T4 Action 3- Left L2 Action 3- Right T8 PT-OP-F Manual Assessment Start: 11/11/21 17:29 Freq: Status: Active Protocol: Document 11/11/21 15:15 DCW (Rec: 11/11/21 17:36 DCW [id number]) Manual Assessments Joint Mobility Assessment Joint Mobility Assessment Pt demonstrates stiffness/ capsular resistance with passive ROM in all motions, most notably external and internal rotation. PT-OP-K Range of Motion Start: 11/11/21 17:29 Freq: Status: Active Protocol: Document 11/25/21 14:37 SP (Rec: 11/25/21 15:32 SP [id number]) Shoulder Goniometric Range of Motion Shoulder Left Passive Shoulder ROM WFL No Testing Position Sitting Flexion 155 Abduction 126 External Rotation at 0 degrees Abduction 45 Comments Improved: FF by 45 deg, ABD 15 deg, 25 deg ER. Left Active Shoulder ROM WFL No Testing Position Sitting Flexion 128 Abduction 110 External Rotation at 0 degrees Abduction 45 Internal Rotation Behind Back (text) L2 Comments improve ER by 27 deg, FF by 8 deg, ABD same 110 deg PT-OP-M Strength Start: 11/11/21 17:29 Freq: Status: Active Protocol: Document 11/11/21 15:15 DCW (Rec: 11/11/21 17:36 DCW [id number]) Shoulder Strength Shoulder Manual Muscle Testing Right Flexion 4+ Good+ Abduction (C5) 4+ Good+ External Rotation 4+ Good+ Internal Rotation 4+ Good+ Left Flexion 4 Good Abduction (C5) 4 Good External Rotation 4 Good Internal Rotation 4 Good PT-OP-Q Treatments Start: 11/11/21 17:29 Freq: Status: Active Protocol: Document 11/28/21 15:18 DCW (Rec: 11/28/21 15:58 DCW [id number]) Therapeutic Exercises Supine Exercises ER Supine Exercise Name Shoulder ER AAROM Side left Equipment Used bule wand Abduction Supine Exercise Name Shoulder abduction AAROM Side left Equipment Used blue wand Flexion Supine Exercise Name Shoulder flexion AAROM Side left Equipment Used blue wand Sitting Exercises Pulleys Sitting Exercise Name Flexion/Abduction AAROM Side bilateral Standing Exercises wall walking Standing Exercise Name UE resisted side-stepping Resistance Red Equipment Used @ rail Pulleys Standing Exercise Name Standing IR Side bilateral Manual Therapy Treatment Soft Tissue Mobilization Pec Body Location L pectoralis, deltoid, prox bicep Mobilization Type Cross-Friction,Myofascial Release,Rolling Intensity/Depth Moderate Body Position Hooklying Upper Trap Body Location L UT, Scalenes Mobilization Type Sustained Pressure,Trigger Point Release Body Position Supine Joint Mobilizations GH Joint L GH Direction Sup->Inf Grade III Other Other Manual Treatments Therapist-driven PROM PT-OP-R Modalities Start: 11/11/21 17:29 Freq: Status: Active Protocol: Document 11/18/21 14:38 NBM (Rec: 11/18/21 17:24 NBM [id number]) Hot Pack/Cold Pack Treatment Hot Pack Location L shoulder Patient Position Hooklying Treatment Duration (minutes) 10 Patient Tolerance Good Comments cervical hot pack PT-OP-T Assessment and Plan Start: 11/11/21 17:29 Freq: Status: Active Protocol: Document 11/28/21 15:18 DCW (Rec: 11/28/21 15:58 DCW [id number]) Physical Therapy Assessment Impairments Impairments Activity Tolerance,Pain,ROM, Strength,Tone Goals Three Impairment Left shoulder external rotation limited to 18? Automotive Brake Technician Goal (LTG) Pt to improve left shoulder external rotation to >45? in order to improve ability to style her hair. LTG Duration 01/11/22 Two Impairment Pt unable to sleep in her preferred position of left sidelying Automotive Brake Technician Goal (LTG) Pt to return to prior sleeping position of left sidelying without increased pain in order to improve sleep habits LTG Duration 01/11/22 One Impairment Pt does not have an appropriate home exercise program Short Term Goal (STG) Pt to be independent and compliant with an appropriate HEP STG Duration 12/12/21 Assessment Summary Assessment Pt tolerating treatment very well, again showing decent improvement by end of session, much more mobility during PROM. Physical Therapy Plan Frequency and Duration Frequency of Treatment 2x/Week Duration of Treatment Two months Plan of Care Start Date 11/11/21 Plan of Care End Date 01/11/22 Therapeutic Interventions Therapeutic Interventions Home Exercise Program,Joint Mobilizations,Manual Therapy, Patient/Caregiver Education, Self-Care/Home Management,Soft Tissue Mobilization, Therapeutic Activities, Therapeutic Exercises Modalities Cold Pack/Ice Massage,Electric Stimulation,Hot Packs, Ultrasound Next Visit Focus/Plan Next Note Type Treatment Note Next Visit Plan Recheck added side and standing HEP, progress per POC : AROM/PROM, strengthening, STM, joint mobilizations
--- NOTE | 2022-01-22 17:24 | PT.OTN ---
Current Diagnoses Pain in left shoulder (01/22/22) Stiffness of left shoulder, not elsewhere classified (01/22/22) Adhesive capsulitis of unspecified shoulder (01/22/22) Physical Therapy Treatment Note PT-OP-A Visit Information Start: 11/11/21 17:29 Freq: Status: Active Protocol: Document 01/22/22 16:45 DCW (Rec: 01/22/22 17:24 DCW [id number]) Out-Patient Physical Therapy Visit Information Visit Information Visit Type Progress Note Visit Start Time 16:45 Visit Stop Time 17:10 Total Visit Minutes 25 Visit Number 7 Number of TEMPERATURE LOGGING OPERATOR Visits 0 Evaluation Information Evaluation Date 11/11/21 PT-OP-B Current Condition Start: 11/11/21 17:29 Freq: Status: Active Protocol: Document 11/11/21 15:15 DCW (Rec: 11/11/21 17:52 DCW [id number]) Current Condition History of Current Condition Onset Date six months Current Complaints left shoulder pain and stiffness History of Current Condition Pt is a 76 year old female presenting with a six month history of left shoulder pain and stiffness, idiopathic in origin. Pt notes it is the stiffest and most painful when trying to reach back behind her (external rotation when in 90? abduction). Notes that she had a shoulder x-ray, and was told she had arthritis, and her pain was likely due to frozen shoulder. Places pain at 4/10, but only when she is trying to go into end-range motion. Does not feel that it limits her in any way, but does note she can't sleep as when lying on her left side. Prior Treatments and Tests Shoulder x-ray: IMPRESSION: 1 . No acute osseous abnormality . 2. Degenerative changes of the acromioclavicular joint. per Roger Norwood M.D. on Treatment Goals Patient/Caregiver Goals Improve stiffness and prevent it from worsening. PT-OP-C Subjective Start: 11/11/21 17:29 Freq: Status: Active Protocol: Document 01/22/22 16:45 DCW (Rec: 01/22/22 17:24 DCW [id number]) OP-PT Subjective Patient Comments Patient Comments It's actually gotten a lot better on its own. PT-OP-E Functional Tests Start: 11/11/21 17:29 Freq: Status: Active Protocol: Document 01/22/22 16:45 DCW (Rec: 01/22/22 17:00 DCW [id number]) Functional Tests Apley's Scratch Test Action 1- Left Lateral opposite shoulder Action 1- Right Posterior opposite shoulder Action 2- Left T2 Action 2- Right T4 Action 3- Left T10 Action 3- Right T8 PT-OP-F Manual Assessment Start: 11/11/21 17:29 Freq: Status: Active Protocol: Document 01/22/22 16:45 DCW (Rec: 01/22/22 17:00 DCW [id number]) Manual Assessments Joint Mobility Assessment Joint Mobility Assessment Minimal limitations with PROM today, some mild soreness/ tightness in end-range. PT-OP-K Range of Motion Start: 11/11/21 17:29 Freq: Status: Active Protocol: Document 01/22/22 16:45 DCW (Rec: 01/22/22 17:00 DCW [id number]) Shoulder Goniometric Range of Motion Shoulder Left Active Testing Position Sitting Flexion 162 Abduction 138 External Rotation at 0 degrees Abduction 43 Internal Rotation Behind Back (text) T10 PT-OP-M Strength Start: 11/11/21 17:29 Freq: Status: Active Protocol: Document 01/22/22 16:45 DCW (Rec: 01/22/22 17:00 DCW [id number]) Shoulder Strength Shoulder Manual Muscle Testing Right Flexion 4+ Good+ Abduction (C5) 4+ Good+ External Rotation 4+ Good+ Internal Rotation 4+ Good+ Left Flexion 4+ Good+ Abduction (C5) 4+ Good+ External Rotation 4+ Good+ Internal Rotation 4+ Good+ PT-OP-Q Treatments Start: 11/11/21 17:29 Freq: Status: Active Protocol: Document 01/22/22 16:45 DCW (Rec: 01/22/22 17:24 DCW [id number]) Therapeutic Exercises Standing Exercises Door stretch Standing Exercise Name ER stretch Side left Towel stretch Standing Exercise Name IR Stretch Side left Manual Therapy Treatment Other Other Manual Treatments MMT/ROM testing PT-OP-R Modalities Start: 11/11/21 17:29 Freq: Status: Active Protocol: Document 11/18/21 14:38 NBM (Rec: 11/18/21 17:24 NBM [id number]) Hot Pack/Cold Pack Treatment Hot Pack Location L shoulder Patient Position Hooklying Treatment Duration (minutes) 10 Patient Tolerance Good Comments cervical hot pack PT-OP-T Assessment and Plan Start: 11/11/21 17:29 Freq: Status: Active Protocol: Document 01/22/22 16:45 DCW (Rec: 01/22/22 17:24 DCW [id number]) Physical Therapy Assessment Goals Three Impairment Left shoulder external rotation limited to 18? Glue Mixer Goal (LTG) Pt to improve left shoulder external rotation to >45? in order to improve ability to style her hair. LTG Duration Met Two Impairment Pt unable to sleep in her preferred position of left sidelying Glue Mixer Goal (LTG) Pt to return to prior sleeping position of left sidelying without increased pain in order to improve sleep habits LTG Duration Met One Impairment Pt does not have an appropriate home exercise program Short Term Goal (STG) Pt to be independent and compliant with an appropriate HEP STG Duration Met Progress Towards Goals Progress Towards Goals Goals Met Assessment Summary Assessment Pt has met all goals, feeling very good about current level of function. Happy to discharge today with some additional stretching for IR/ ER. Physical Therapy Plan Frequency and Duration Frequency of Treatment 1x/Week Plan of Care Start Date 01/22/22 Plan of Care End Date 01/23/22
--- NOTE | 2022-01-22 17:24 | PT.OPPOC ---
Physical, Occupational & Speech Therapy At [facility] Current Diagnoses Pain in left shoulder (01/22/22) Stiffness of left shoulder, not elsewhere classified (01/22/22) Adhesive capsulitis of unspecified shoulder (01/22/22) Visit Care Team Role Provider Type John Paul Schwab DO Attending Provider Physician Family Provider Primary Care Provider Referring Provider Specialty: [facility] Address: [address] [place] [address], [facility] Email: [email or web address] Plan Of Care PT-OP-T Assessment and Plan Start: 11/11/21 17:29 Freq: Status: Active Protocol: Document 01/22/22 16:45 DCW (Rec: 01/22/22 17:24 DCW [id number]) Physical Therapy Assessment Goals Three Impairment Left shoulder external rotation limited to 18? Gas Plant Operator Goal (LTG) Pt to improve left shoulder external rotation to >45? in order to improve ability to style her hair. LTG Duration Met Two Impairment Pt unable to sleep in her preferred position of left sidelying Gas Plant Operator Goal (LTG) Pt to return to prior sleeping position of left sidelying without increased pain in order to improve sleep habits LTG Duration Met One Impairment Pt does not have an appropriate home exercise program Short Term Goal (STG) Pt to be independent and compliant with an appropriate HEP STG Duration Met Progress Towards Goals Progress Towards Goals Goals Met Assessment Summary Assessment Pt has met all goals, feeling very good about current level of function. Happy to discharge today with some additional stretching for IR/ ER. Physical Therapy Plan Frequency and Duration Frequency of Treatment 1x/Week Plan of Care Start Date 01/22/22 Plan of Care End Date 01/23/22 Plan of Care Dates Plan of Care Start Date 01/22/22 Plan of Care End Date 01/23/22 Electronically Signed by: Rom Rutledge, PT 01/22/22 [id number] If you are in agreement with this Plan of Care, please return a signed and dated copy. I have reviewed this Plan of Care and certify that the skilled therapy services above are required to meet the patient?s needs. Physician Signature Date Printed Name and Credentials Clinical Instructor Signature Printed Name and Credentials
== END 2022-01-27 11:30 | disposition home or self-care (01) ==
LOC: PHYS 16:45
PROVIDERS: Family Provider Family Medicine; PCP Family Medicine; Referring Provider Family Medicine; Visit Provider Family Medicine
DX: M75.00 Adhesive capsulitis of unspecified shoulder (principal); M25.512 Pain in left shoulder; M25.612 Stiffness of left shoulder, not elsewhere classified
CPT/HCPCS: 97110; 97140; 97161

== ENCOUNTER → 2022-02-05 12:59 | Outpatient (CLI) | payer OTHER, SELFPAY ==
[2022-02-05 13:55] LABS: COVID19 -Nasal RAPID POSITIVE (Negative)
== END ==
PROVIDERS: Family Provider Family Medicine; PCP Family Medicine; Visit Provider Registered Nurse
DX: U07.1 COVID-19 (principal)
CPT/HCPCS: 87635

== ENCOUNTER → 2022-04-22 | Outpatient (CLI) | payer OTHER, SELFPAY ==
--- NOTE | 2022-04-22 08:41 | DI.US.S_ITS ---
LIMITED ULTRASOUND OF RIGHT BREAST: 04/22/2022 CLINICAL: 6 month follow-up. Comparison is made to exams dated: 04/22/2022 mammogram, 10/14/2021 ultrasound, 10/14/2021 mammogram, 04/01/2021 ultrasound, 04/01/2021 mammogram, and 03/04/2021 mammogram - [facility]. Color flow and real-time ultrasound of the right breast 9 o'clock and 12 o'clock regions were performed. Lopez scale images of the real-time examination were reviewed. No mass seen in the area of asymmetry or possible architectural distortion seen on mammogram. There is a benign 0.5 cm x 0.4 cm x 0.3 cm oval cyst in the right breast at 12 o'clock middle depth 3 cm from the nipple. This oval cyst is anechoic with posterior acoustic enhancement. This abnormality is not significantly changed. IMPRESSION: PROBABLY BENIGN 1) No mass seen in the area of asymmetry or possible architectural distortion seen on prior mammogram. -A follow-up mammogram and possible ultrasound in 6 months is recommended to demonstrate stability. -Patient will be due for left breast mammogram at that time. 2) The 0.5 cm cyst in the right breast is benign. This exam was interpreted at Station ID: [id number]. Electronically Signed By: Antonio Skaggs M.D. slc/:04/22/2022 09:53:38 letter sent: Followup Recommended Ultrasound BI-RADS: 3 Probably benign
--- NOTE | 2022-04-22 09:07 | DI.MG.S_ITS ---
At the request of: ALEXANDRA ESCOBAR Procedure: MM special view RT UNILATERAL RIGHT DIGITAL DIAGNOSTIC MAMMOGRAM 3D/2D WITH ADDITIONAL VIEWS: 04/22/2022 CLINICAL: Additional evaluation requested from prior study. Comparison is made to exams dated: 04/22/2022 ultrasound - [facility], 10/14/2021 ultrasound, 10/14/2021 mammogram, 03/04/2021 mammogram, and 04/01/2021 mammogram - [facility]. The right breast is heterogeneously dense, which may obscure small masses (category c / 51-75% glandular tissue). There is a stable irregular asymmetry in the right breast middle depth superior region seen on the mediolateral oblique view only. This was not seen on the prior ultrasound. No other significant masses or calcifications are seen in the breast. IMPRESSION: INCOMPLETE: NEEDS ADDITIONAL IMAGING EVALUATION Irregular asymmetry in the right breast is indeterminate. A targeted ultrasound is recommended and will immediately follow. Based on the Tyrer Cuzick model (a risk assessment model) the patient?s lifetime risk is 4.9% and her 10 year risk is 0.0%. According to the ACR, ACS, and NCCN guidelines, an annual breast MRI exam along with mammogram is recommended if the patient?s lifetime risk is 20% or greater. This exam was interpreted at Station ID: [id number]. Continued Report - Page 2 of 2 Patient Name: JACQUELINE WITT date: 1945 Sex: F Attending Physician: Zaheer Indications: Date: 04/30/2022 10:19 At the request of: ALEXANDRA ESCOBAR Procedure: MM special view RT NOTE: For mammograms, a report in lay terms will be sent to the patient. Approximately 15% of breast malignancies will not be visualized mammographically. In the management of a palpable breast mass, a negative mammogram must not discourage biopsy of a clinically suspicious lesion. Electronically Signed By: Antonio Skaggs M.D. slc/:04/30/2022 10:19:18 ACR BI-RADS Category 0: Incomplete 3340F
== END ==
PROVIDERS: Family Provider Family Medicine; PCP Family Medicine; Referring Provider Family Medicine; Visit Provider Family Medicine
DX: N60.01 Solitary cyst of right breast (principal); R92.8 Other abnormal and inconclusive findings on diagnostic imaging of breast
CPT/HCPCS: 76642; 77063; 77065; 77067; G0279

== ENCOUNTER → 2022-09-09 12:49 | Outpatient (CLI) | payer OTHER, SELFPAY ==
[2022-09-09 13:53] LABS: COVID-19 CEPHEID 4-PLEX PCR Negative (Negative); Influenza A - CEPHEID Flu A NEGATIVE (NEGATIVE); Influenza B - CEPHEID Flu B NEGATIVE (NEGATIVE); Respiratory Syncytial Virus Negative (Negative)
== END ==
PROVIDERS: Family Provider Family Medicine; PCP Family Medicine; Visit Provider Nurse Practitioner Family
DX: J06.9 Acute upper respiratory infection, unspecified (principal)
CPT/HCPCS: 0241U

== ENCOUNTER → 2022-12-02 11:52 | Outpatient (CLI) | payer OTHER, SELFPAY ==
--- NOTE | 2022-12-02 11:58 | DI.MG.S_ITS ---
BILATERAL DIGITAL DIAGNOSTIC MAMMOGRAM 3D/2D SHORT-TERM FOLLOW-UP: 12/02/2022 CLINICAL: Short term follow up of the right breast, due for bilateral imaging. Comparison is made to exams dated: 04/22/2022 mammogram, 10/14/2021 mammogram, 04/01/2021 mammogram, and 03/04/2021 mammogram - . Both breasts are heterogeneously dense, which may obscure small masses (category c / 51-75% glandular tissue). Prior asymmetry and area of architectural distortion remain no longer seen in the right breast in the superior lateral quadrant. The previously described irregular asymmetry in the right breast middle depth superior region seen on the mediolateral oblique view only is less prominent and was not seen on the prior ultrasound. Stable post biopsy changes in the left breast. No other significant masses, calcifications, or other findings are seen in either breast. IMPRESSION: PROBABLY BENIGN The stable, subtle irregular asymmetry in the right breast is probably benign. A follow-up bilateral mammogram with possible right ultrasound in 12 months is recommended to document senior living stability. Findings and recommendations were conveyed to the patient during today's evaluation. Based on the Tyrer Cuzick model (a risk assessment model) the patient's lifetime risk is 4.3% and her 10 year risk is 0.0%. According to the ACR, ACS, and NCCN guidelines, an annual breast MRI exam along with mammogram is recommended if the patient's lifetime risk is 20% or greater. This exam was interpreted at Station ID: [id number]. NOTE: For mammograms, a report in lay terms will be sent to the patient. Approximately 15% of breast malignancies will not be visualized mammographically. In the management of a palpable breast mass, a negative mammogram must not discourage biopsy of a clinically suspicious lesion. Electronically Signed By: Jacob Garcia M.D. aty/:12/02/2022 12:42:10 Entry: - 12/08/2022 12:17:20 letter sent: Followup Recommended ACR BI-RADS Category 3: Probably benign 3343F
== END ==
PROVIDERS: Family Provider Family Medicine; PCP Family Medicine; Referring Provider Family Medicine; Visit Provider Family Medicine
DX: Z12.31 Encounter for screening mammogram for malignant neoplasm of breast (principal); R92.8 Other abnormal and inconclusive findings on diagnostic imaging of breast
CPT/HCPCS: 77066; G0279

== ENCOUNTER → 2022-12-15 16:35 | Outpatient (CLI) | payer OTHER, SELFPAY ==
[2022-12-15 17:33] LABS: Influenza A - CEPHEID Flu A NEGATIVE (NEGATIVE); Influenza B - CEPHEID Flu B NEGATIVE (NEGATIVE); Respiratory Syncytial Virus Negative (Negative)
[2022-12-15 17:38] LABS: COVID-19 CEPHEID 4-PLEX PCR Negative (Negative)
== END ==
PROVIDERS: Family Provider Family Medicine; PCP Family Medicine; Visit Provider Family Medicine
DX: R39.9 Unspecified symptoms and signs involving the genitourinary system (principal); J06.9 Acute upper respiratory infection, unspecified
CPT/HCPCS: 0241U

== ENCOUNTER → 2022-12-24 10:09 | Outpatient (CLI) | payer OTHER, SELFPAY ==
[2022-12-24 11:04] LABS: Add Manual Diff / Slide Review NO; Basophils Absolute Auto 0 /uL (0-100); Basophils Percent Auto 0.7 % (0-2); Eosinophils Absolute Auto 100 /uL (0-450); Eosinophils Percent Auto 2.1 % (2-4); Hematocrit 38.6 % (36-46); Hemoglobin 13.2 g/dL (12.0-16.0); Lymphocytes Absolute Auto 1300 /uL (1100-4500); Lymphocytes Percent Auto 22.6 % (25-40); Mean Corpuscular HGB Conc 34.2 % (30-36); Mean Corpuscular Hemoglobin 30.8 PG (26-34); Mean Corpuscular Volume 90.1 fL (80-100); Monocytes Absolute Auto 500 /uL (0-900); Monocytes Percent Auto 8.6 % (3-14); Neutrophils Absolute Auto 3900 /uL (1500-7000); Platelet Count 261 X10^3/uL (150-400); Red Blood Cell Count 4.29 X10^6/uL (4.0-5.2); White Blood Cell Count 5.9 X10^3/uL (4.5-11.0)
[2022-12-24 11:26] LABS: Alanine Aminotransferase 15 IU/L (<35); Albumin 3.8 g/dL (3.5-5.0); Albumin Globulin Ratio 1.3 (1.0-2.8); Alkaline Phosphatase 66 U/L (38-126); Aspartate Aminotransferase 21 IU/L (14-36); BUN Creatinine Ratio 16.2 (6-22); Bilirubin Total 0.7 mg/dL (0.2-1.3); Blood Urea Nitrogen 12 mg/dL (7-17); C-Reactive Protein Quant < 0.5 mg/dL (<1.0); Calcium 9.4 mg/dL (8.4-10.2); Carbon Dioxide 30 mmol/L (22-32); Chloride 101 mmol/L (98-107); Estimated Glomerular Filt Rate > 60 mL/min (>60); Globulin 2.9 g/dL (1.7-4.1); Glucose 95 mg/dL (80-110); HEMOLYSIS < 15 (0-50); Potassium 4.1 mmol/L (3.4-5.1); Sodium 135 mmol/L (137-145); Total Protein 6.7 g/dL (6.3-8.2); Uric Acid 3.2 mg/dL (2.5-6.2)
[2022-12-24 12:12] LABS: Erythrocyte Sedimentation Rate 10 MM/HR (0-20)
== END ==
PROVIDERS: Family Provider Family Medicine; PCP Family Medicine; Referring Provider Family Medicine; Visit Provider Family Medicine
DX: M25.50 Pain in unspecified joint (principal); R53.83 Other fatigue; R68.83 Chills (without fever)
CPT/HCPCS: 36415; 80053; 84443; 84550; 85025; 85651; 86140

== ENCOUNTER → 2023-03-15 12:49 | Outpatient (CLI) | payer OTHER, SELFPAY | PROVIDERS: Family Provider Family Medicine; PCP Family Medicine; Visit Provider Nurse Practitioner Family | DX: J02.9 Acute pharyngitis, unspecified (principal) | CPT/HCPCS: 87070 ==

== ENCOUNTER 2023-07-29 06:37 | Emergency (ER) | payer OTHER, SELFPAY ==
[2023-07-29] VITALS (9 sets, daily range): BP systolic 136–152; BP diastolic 62–80; PULSE 76–97; RESP 16; TEMP 37; O2SAT 92–98; BMI 23.1
--- NOTE | 2023-07-29 06:51 | DI.CT.S_ITS ---
PROCEDURE: CT ABDOMEN PELVIS W CON INDICATIONS: BILAT LOWER QUADRANT PAIN L>R X 3 DAYS TECHNIQUE: After the administration of intravenous contrast, axial sections acquired from the lung bases to the pubic symphysis. Coronal and sagittal reformats were performed. For radiation dose reduction, the following was used: automated exposure control, adjustment of mA and/or kV according to patient size. COMPARISON: [facility], CT, ABDOMEN/PELVIS WITH CONTRAST, 11/25/2016, 9:38. FINDINGS: Image quality: Diagnostic. Lower Chest: No significant findings. ABDOMEN: Liver: No solid mass. Gallbladder: No radiopaque gallstones or wall thickening. Biliary ducts: No biliary dilation. Pancreas: No ductal dilation. Spleen: Size is within normal limits. Adrenal Glands: No adrenal nodules. Kidneys and Ureters: No hydronephrosis. No solid mass. No complex renal cystic lesion which requires follow up. Stomach and Bowel: Diverticulosis. Thickening at the sigmoid colon in the left pelvis, (2/60). Trace free fluid in the pelvis. Colon is mostly decompressed. The appendix is not definitely seen. No small bowel obstruction. Stomach is not distended. Peritoneum: No significant ascites. No free air. Ventral Wall: No significant ventral hernia. Abdominal Nodes: No retroperitoneal or mesenteric adenopathy by size criteria. Vessels: Aorta and inferior vena cava are normal in size. PELVIS: Pelvic Organs: Anteverted uterus. Bladder: No bladder wall thickening, accounting for underdistention. Pelvic Nodes: No enlarged lymph nodes. Miscellaneous: No inguinal hernias are seen. Bones: No aggressive osseous abnormality. IMPRESSION: Diverticulosis. Thickening of the sigmoid colon in the left pelvis. Trace free fluid in the pelvis. These findings are most suggestive of diverticulitis. No abscess or free air. Recommend clinical correlation. Recommend correlation with colonoscopy if not recently performed to exclude underlying malignancy. Dictated by: Antonio Skaggs M.D. on 07/29/2023 at 8:04 Approved by: Antonio Skaggs M.D. on 07/29/2023 at 8:14
[2023-07-29 07:09] LABS: Add Manual Diff / Slide Review NO; Basophils Absolute Auto 0 /uL (0-100); Basophils Percent Auto 0.2 % (0-2); Eosinophils Absolute Auto 0 /uL (0-450); Eosinophils Percent Auto 0.3 % (2-4); Hematocrit 41.9 % (36-46); Lymphocytes Absolute Auto 900 /uL (1100-4500); Lymphocytes Percent Auto 10.3 % (25-40); Mean Corpuscular HGB Conc 33.4 % (30-36); Mean Corpuscular Hemoglobin 30.6 PG (26-34); Mean Corpuscular Volume 91.5 fL (80-100); Monocytes Absolute Auto 700 /uL (0-900); Monocytes Percent Auto 7.4 % (3-14); Neutrophils Absolute Auto 7400 /uL (1500-7000); Neutrophils Percent Auto 81.8 % (50-75); Platelet Count 214 X10^3/uL (150-400); Red Blood Cell Count 4.58 X10^6/uL (4.0-5.2); Red Cell Distribution Width 13.3 % (11.6-14.8); White Blood Cell Count 9.1 X10^3/uL (4.5-11.0)
--- NOTE | 2023-07-29 07:18 | ED.ABDPAIN ---
HPI - Abdominal Pain General Chief Complaint: Abdominal Pain Stated Complaint: abd pain, constipation Time Seen by Provider: 07/29/23 06:40 Source: patient Mode of arrival: Ambulatory Limitations: no limitations History of Present Illness HPI narrative: This is a 77-year-old female with metoprolol for hypertension as her only medication who presents with 2 or 3 months of abdominal pain which she states has increased by quite a bit over the last 4 days. She has not appointment with her primary care physician to be seen for this today but she states the pain intensified and she presents to the ED. she states no fevers or chills. No nausea or vomiting. She has had diarrhea alternating with constipation. No black or bloody stools. She denies any dysuria, urgency, frequency or hematuria. No vaginal bleeding or discharge. She states it hurts lower abdomen little bit more left but after palpation more on the right. She denies any flank pain. She is on metoprolol as her only daily medication. She states only prior surgeries was tubal ligation. No known drug allergies. Does not use any tobacco, rare alcohol, no recreational drugs. Dr. Schwab is her primary care physician. Related Data Home Medications Medication Instructions Recorded Confirmed Co Q10 PO 10/22/20 06/17/23 Multivitamin PO 10/22/20 06/17/23 Ocuvite PO 10/22/20 06/17/23 Turmeric PO 10/22/20 06/17/23 Vitamin D3 PO 10/22/20 06/17/23 Previous Rx's Medication Instructions Recorded lidocaine 5 % topical patch 1 patch topical DAILY #15 ea 11/16/22 metoprolol succinate 25 mg 25 mg PO DAILY #90 tabs 07/05/23 tablet,extended release 24 hr amoxicillin 875 mg-potassium 1 tab PO BID #20 tabs 07/29/23 clavulanate 125 mg tablet tramadol 50 mg tablet 50 mg PO Q6H PRN pain #5 tabs 07/29/23 Allergies Allergy/AdvReac Type Severity Reaction Status Date / Time No Known Drug Allergies Allergy Verified 06/17/23 08:35 Review of Systems Review of Systems ROS Unobtainable: All systems reviewed & are unremarkable except as noted in HPI and below Patient History Medical History Idiopathic neuropathy Hyponatremia Viral syndrome Neuropathy Adhesive capsulitis Hypertension Elevated LFTs Medication management Encounter for screening colonoscopy Plantar fasciitis Migraines Surgical History No pertinent past surgical history Social History household members: none Smoking Status: Never smoker alcohol intake: current substance use type: does not use Smoking Status: Never smoker alcohol intake frequency: holidays/special occasions only Substance Use Type: does not use Exam Narrative Exam Narrative: GENERAL: Alert and oriented x three, female in moderate distress HEENT: Head normocephalic, atraumatic, EOMI, pupils reactive, face symmetric, moist mucous membranes NECK: Supple, full range of motion CARDIOVASCULAR: Regular rate and rhythm without murmurs, rubs or gallops. RESPIRATORY: Breath sounds equal bilaterally, no wheezes rales or rhonchi. ABDOMEN: Soft, patient is tender bilateral lower quadrants right greater than left although she notes that pain was initially more on the left side prior to palpation. Normoactive bowel sounds all 4 quadrants. Positive for guarding, No rebound, rigidity, no mass : No CVA tenderness EXTREMITIES: Normal range of motion, no clubbing or edema. Neurovascularly intact. 2+ pulses bilateral lower extremities. NEUROLOGICAL: Cranial nerves II through XII grossly intact. Moving all extremities SKIN: Warm, dry, no petechiae, no rashes or lesions. Initial Vital Signs Initial Vital Signs: Vital Signs Temperature 98.6 F 07/29/23 06:47 Pulse Rate 84 07/29/23 06:47 Respiratory Rate 16 07/29/23 06:47 Blood Pressure 152/66 H 07/29/23 06:47 Pulse Oximetry 98 07/29/23 06:47 Oxygen Delivery Method Room Air 07/29/23 06:47 Course Orders Ordered: ED Orders 07/29/23 06:51 CT abdomen pelvis w con Stat 07/29/23 06:55 CBC Auto Diff [Complete Blood Count AUTO DIFF] Stat CMP [Comprehensive Metabolic Panel] Stat Lactate (Lactic Acid) Stat Lipase Stat Discontinued Medications Amoxicillin/Clavulanate Potassium (Amoxicillin/Clav 875/125 Mg) 1 tab PO NOW ONE Stop: 07/29/23 08:33 Last Admin: 07/29/23 09:36 Dose: 1 tab Documented By: MADELAINE Sodium Chloride (Normal Saline 0.9%) 1,000 mls @ 1,000 mls/hr IV BOLUS ONE Stop: 07/29/23 07:50 Ketorolac Tromethamine (Ketorolac 30 Mg/Ml Vial) 15 mg IV NOW ONE Stop: 07/29/23 07:20 Last Admin: 07/29/23 07:45 Dose: Not Given Documented By: MADELAINE Morphine Sulfate (Morphine 4 Mg/Ml Inj) 4 mg IV NOW ONE Stop: 07/29/23 06:52 Last Admin: 07/29/23 07:30 Dose: Not Given Documented By: MADELAINE Ondansetron HCl (Ondansetron 4 Mg/2 Ml Inj) 4 mg IV NOW ONE Stop: 07/29/23 06:52 Vital Signs Vital signs: Vital Signs - 8 hr 07/29/23 06:47 07/29/23 07:20 07/29/23 07:30 Temperature 98.6 F Pulse Rate 84 80 76 Respiratory Rate 16 Blood Pressure 152/66 H Pulse Oximetry 98 96 97 Oxygen Delivery Method Room Air 07/29/23 07:48 07/29/23 07:48 07/29/23 08:00 Temperature Pulse Rate 97 H Respiratory Rate Blood Pressure 136/80 136/63 Pulse Oximetry 93 Oxygen Delivery Method 07/29/23 08:00 07/29/23 08:30 07/29/23 08:31 Temperature Pulse Rate 85 83 84 Respiratory Rate Blood Pressure Pulse Oximetry 95 92 Oxygen Delivery Method 07/29/23 08:31 07/29/23 09:01 07/29/23 09:02 Temperature Pulse Rate 92 H 88 Respiratory Rate Blood Pressure 140/69 Pulse Oximetry 98 Oxygen Delivery Method 07/29/23 09:02 Temperature Pulse Rate Respiratory Rate Blood Pressure 151/62 H Pulse Oximetry Oxygen Delivery Method MDM - Abdominal Pain Lab Data 07/29/23 06:55 07/29/23 06:55 Labs: Lab Results 07/29/23 Range/Units 06:55 WBC 9.1 (4.5-11.0) X10^3/uL RBC 4.58 (4.0-5.2) X10^6/uL Hgb 14.0 (12.0-16.0) g/dL Hct 41.9 (36-46) % MCV 91.5 (80-100) fL MCH 30.6 (26-34) PG MCHC 33.4 (30-36) % RDW 13.3 (11.6-14.8) % Plt Count 214 (150-400) X10^3/uL Neut % (Auto) 81.8 H (50-75) % Lymph % (Auto) 10.3 L (25-40) % Haywood % (Auto) 7.4 (3-14) % Eos % (Auto) 0.3 L (2-4) % Baso % (Auto) 0.2 (0-2) % Neut # (Auto) 7400 H (5015-7365) /uL Lymph # (Auto) 900 L (1176-4791) /uL Haywood # (Auto) 700 (0-900) /uL Eos # (Auto) 0 (0-450) /uL Baso # (Auto) 0 (0-100) /uL Sodium 138 (137-145) mmol/L Potassium 3.7 (3.4-5.1) mmol/L Chloride 105 (98-107) mmol/L Carbon Dioxide 26 (22-32) mmol/L BUN 12 (7-17) mg/dL Creatinine 0.77 (0.52-1.04) mg/dL Estimated GFR > 60 (>60) mL/min BUN/Creatinine Ratio 15.6 (6-22) Glucose 114 H (80-110) mg/dL Lactate 0.9 (0.7-2.1) mmol/L Calcium 9.1 (8.4-10.2) mg/dL Total Bilirubin 1.1 (0.2-1.3) mg/dL AST 24 (14-36) IU/L ALT 15 (<35) IU/L Alkaline Phosphatase 88 (38-126) U/L Total Protein 8.0 (6.3-8.2) g/dL Albumin 4.7 (3.5-5.0) g/dL Globulin 3.3 (1.7-4.1) g/dL Albumin/Globulin Ratio 1.4 (1.0-2.8) Lipase 100 (23-300) U/L Imaging Data CT scan - abdomen/pelvis: Radiologist's Impression: [address] [address] XRay Report Signed Patient: Ronnie Rashid MR#: [id number] : 02/02/1968 Acct:[id number] Age/Sex: 55 / M Date of Service: 07/29/23 Loc: ED Accession Number: [id number] Procedure: XR chest 1V Ordering Provider: Maggie Mercedes D.O. PROCEDURE: XR CHEST 1V INDICATIONS: overdose TECHNIQUE: One view of the chest was acquired. COMPARISON: [facility], CT, CT ABDOMEN PELVIS W CON, 04/29/2023, 11:27. [facility], CR, XR CHEST 1V, 12/19/2020, 15:46. [facility], CR, XR CHEST 1V, 02/17/2020, 11:48. FINDINGS: Surgical changes and devices: None. Lungs and pleura: Lungs are clear. No pleural effusions or pneumothorax. Mediastinum: Mediastinal contours appear normal. Heart size is normal. Bones and chest wall: No suspicious bony lesions. Overlying soft tissues appear unremarkable. IMPRESSION: No acute cardiopulmonary abnormality is seen. Dictated by: Antonio Skaggs M.D. on 07/29/2023 at 8:03 Approved by: Antonio Skaggs M.D. on 07/29/2023 at 8:04 [facility] Narrative Medical decision making narrative: 77-year-old female who presents with complaint of several months of abdominal pain that has been worsening over the past several days with alternating diarrhea and constipation. Patient's only prior abdominal surgery was a tubal ligation. Patient has normal white count hemoglobin of 14 with platelets of 214. Chemistries show normal electrolytes, renal function glucose of 114 with a lactate of 0.9 negative LFTs and a lipase of 100. Urine CT abdomen pelvis was obtained as patient is quite uncomfortable on examination. This shows diverticulosis with thickening of the sigmoid colon in the left pelvis trace free fluid: Mostly decompressed appendix not definitively seen no small-bowel obstruction stomach is not distended. No no bladder wall thickening counting for underdistention. Findings suggestive of diverticulitis no reported abscess or perforation Patient had morphine ordered initially but she would like to avoid any narcotics. Discussed with patient plan for oral antibiotics, pain control and follow up for recheck in the next several days. She feels comfortable with this plan. Discharge Plan Departure Patient Disposition: Home Clinical Impression: Diverticulitis Instructions: DI for Diverticulitis Activity Restrictions/Additional Instructions: Your workup today shows diverticulitis but no signs of abscess or perforation. You have been prescribed an oral antibiotic you should expect to have some improvement in 24-48 hours with the antibiotics. Follow up with your physician for recheck if you are not continuing to improve. Take oral antibiotics until completed. You can take Tylenol up to a 1000 mg every 6 hours as needed for pain and/or ibuprofen up to 600 mg every 6 hours. If inadequate for pain you can take tramadol 1-2 tablets every 6 hours as needed. This medication can make you sleepy do not drive, perform hazardous activities or make any major decisions while taking it. This medication will make you constipated please take a stool softener once to twice daily until stools are soft and regular. Prescription sent to [facility] in [place] Please return for fevers, worsening abdominal back or flank pain, new black or bloody stools, lightheadedness or passing out, persistent vomiting or other new or concerning changes. Prescriptions: New amoxicillin-pot clavulanate 875-125 mg tablet 1 tab PO BID Qty: 20 0RF tramadol 50 mg tablet 50 mg PO Q6H PRN (Reason: pain) Qty: 5 0RF No Action lidocaine 5 % adhesive patch,medicated 1 patch topical DAILY Qty: 15 0RF Rx Instructions: leave on most painful area for up to 12 hrs metoprolol succinate 25 mg tablet extended release 24 hr 25 mg PO DAILY Qty: 90 0RF Co Q10 PO Vitamin D3 PO Turmeric PO Ocuvite PO Multivitamin PO Referrals: John Paul Schwab, [Primary Care Provider] - Stand Alone Forms: Patient Portal/API
[2023-07-29 07:22] LABS: Alanine Aminotransferase 15 IU/L (<35); Albumin 4.7 g/dL (3.5-5.0); Albumin Globulin Ratio 1.4 (1.0-2.8); Alkaline Phosphatase 88 U/L (38-126); Aspartate Aminotransferase 24 IU/L (14-36); BUN Creatinine Ratio 15.6 (6-22); Bilirubin Total 1.1 mg/dL (0.2-1.3); Blood Urea Nitrogen 12 mg/dL (7-17); Calcium 9.1 mg/dL (8.4-10.2); Carbon Dioxide 26 mmol/L (22-32); Chloride 105 mmol/L (98-107); Estimated Glomerular Filt Rate > 60 mL/min (>60); Globulin 3.3 g/dL (1.7-4.1); Glucose 114 mg/dL (80-110); HEMOLYSIS < 15 (0-50); Lactate (Lactic Acid) 0.9 mmol/L (0.7-2.1); Lipase 100 U/L (23-300); Potassium 3.7 mmol/L (3.4-5.1); Sodium 138 mmol/L (137-145)
[2023-07-29] MEDS: AMOXICILLIN/CLAV 875/125 MG 1 TAB PO (09:36)
== END 2023-07-29 09:41 | disposition home or self-care (01) ==
PROVIDERS: Emergency Medicine; Emergency Provider Emergency Medicine; Family Provider Family Medicine; PCP Family Medicine
DX: K57.32 Diverticulitis of large intestine without perforation or abscess without bleeding (principal)
CPT/HCPCS: 36415; 74177; 80053; 83605; 83690; 85025; 99283; 99284; Q9967

== ENCOUNTER → 2023-09-02 12:41 | Outpatient (CLI) | payer OTHER, SELFPAY | PROVIDERS: Family Provider Family Medicine; PCP Family Medicine; Referring Provider Family Medicine; Visit Provider Family Medicine | DX: G60.9 Hereditary and idiopathic neuropathy, unspecified (principal) | CPT/HCPCS: 95886; 95910 ==

== ENCOUNTER → 2023-11-04 15:04 | Outpatient (CLI) | payer OTHER, SELFPAY ==
--- NOTE | 2023-11-04 15:05 | DI.RAD.S_ITS ---
PROCEDURE: XR LUMBAR SPINE 2-3V INDICATIONS: Pain at level of T11-T12 and L1 TECHNIQUE: 3 views of the lumbar spine were acquired. COMPARISON: None. FINDINGS: Bones: 5 [id number] vertebrae are present. There is normal bony alignment. No vertebral body compression fractures. No suspicious bony lesions. Facet arthrosis in the lower lumbar spine. There is loss of intervertebral disc space at L5-S1 consistent with degenerative disc disease. Soft tissues: Overlying bowel gas pattern is normal. No suspicious soft tissue calcifications. IMPRESSION: Degenerative changes in the lower lumbar spine Dictated by: Den Ferguson M.D. on 11/05/2023 at 10:00 Approved by: Den Ferguson M.D. on 11/05/2023 at 10:03
--- NOTE | 2023-11-04 15:05 | DI.RAD.S_ITS ---
PROCEDURE: XR THORACIC SPINE 3V INDICATIONS: Pain at level of T11-T12 and L1 TECHNIQUE: 3 views of the thoracic spine were acquired. COMPARISON: None. FINDINGS: Bones: No fractures or dislocations. No suspicious bony lesions. 12 pairs of ribs are noted, and appear intact where visualized. Soft tissues: No paravertebral stripe thickening. IMPRESSION: No acute bony abnormality. Dictated by: Den Ferguson M.D. on 11/05/2023 at 10:04 Approved by: Den Ferguson M.D. on 11/05/2023 at 10:07
== END ==
PROVIDERS: Family Provider Family Medicine; PCP Family Medicine; Referring Provider Physician Assistant; Visit Provider Physician Assistant
DX: M47.816 Spondylosis without myelopathy or radiculopathy, lumbar region (principal); M54.9 Dorsalgia, unspecified; M62.838 Other muscle spasm
CPT/HCPCS: 72072; 72100

== ENCOUNTER → 2023-12-08 08:46 | Outpatient (CLI) | payer OTHER, SELFPAY ==
--- NOTE | 2023-12-08 08:47 | DI.MG.S_ITS ---
BILATERAL DIGITAL DIAGNOSTIC MAMMOGRAM 3D/2D: 12/08/2023 CLINICAL: Short term follow up of the right breast, due for bilateral imaging. Comparison is made to exams dated: 04/22/2022 mammogram, 03/04/2021 mammogram, 11/23/2019 mammogram, 11/11/2018 mammogram, 10/14/2021 mammogram, and 06/01/2016 mammogram - [facility]. The breasts are heterogeneously dense, which may obscure small masses (category c / 51-75% glandular tissue). The asymmetry in the right breast upper middle depth on MLO view only is less prominent since September 2021. No prior ultrasound correlate identified. There are stable changes from prior excisional biopsy in the left breast. No other significant masses, calcifications, or other findings are seen in either breast. IMPRESSION: BENIGN Right breast asymmetry in the middle upper position, less prominent since September 2021. Given the half-way stability of the finding for over 2 years, this is consistent with a benign process. No mammographic evidence of malignancy. A 1 year screening mammogram is recommended. Findings and recommendations were conveyed to the patient during today's evaluation. Based on the Tyrer Cuzick model (a risk assessment model) the patient's lifetime risk is 3.8% and her 10 year risk is 0.0%. According to the ACR, ACS, and NCCN guidelines, an annual breast MRI exam along with mammogram is recommended if the patient's lifetime risk is 20% or greater. This exam was interpreted at Station ID: [id number]. NOTE: For mammograms, a report in lay terms will be sent to the patient. Approximately 15% of breast malignancies will not be visualized mammographically. In the management of a palpable breast mass, a negative mammogram must not discourage biopsy of a clinically suspicious lesion. Electronically Signed By: Luh Rm M.D., Ph.D. eb/:12/08/2023 09:33:50 letter sent: Normal Exam ACR BI-RADS Category 2: Benign [id number]
== END ==
LOC: MAMMO 08:46
PROVIDERS: Family Provider Family Medicine; PCP Family Medicine; Referring Provider Family Medicine; Visit Provider Family Medicine
DX: N64.89 Other specified disorders of breast (principal); N60.09 Solitary cyst of unspecified breast; R92.333 Mammographic heterogeneous density, bilateral breasts
CPT/HCPCS: 77066; G0279

== ENCOUNTER 2023-12-13 12:59 | Emergency (ER) | payer OTHER, SELFPAY ==
[2023-12-13] VITALS (7 sets, daily range): BP systolic 117–136; BP diastolic 63–71; PULSE 64–69; RESP 15–18; TEMP 36.4; O2SAT 93–100; BMI 23.1
--- NOTE | 2023-12-13 13:22 | ED.ABDPAIN ---
HPI - Abdominal Pain General Chief Complaint: Abdominal Pain Stated Complaint: stomach pain, sent by [facility] for xray Time Seen by Provider: 12/13/23 13:17 Source: patient Mode of arrival: Ambulatory History of Present Illness HPI narrative: Patient is a 78-year-old female past medical history of hypertension diverticulitis comes into the ED for evaluation of abdominal pain and constipation. She states that this has been ongoing and persistent for the past 3-4 days. States that she normally has 3 bowel movements a day but is now gone down to 1-2, she is also complaining of pain to her left lower quadrant, went to a walk-in clinic and was instructed to come into the ED for further evaluation treatment. She denies any other symptoms at this time. She has had history of tubal ligation. No other symptoms Related Data Home Medications Medication Instructions Recorded Confirmed Co Q10 PO 10/22/20 11/04/23 Multivitamin PO 10/22/20 11/04/23 Ocuvite PO 10/22/20 11/04/23 Turmeric PO 10/22/20 11/04/23 Vitamin D3 PO 10/22/20 11/04/23 Previous Rx's Medication Instructions Recorded amoxicillin 875 mg-potassium 1 tab PO BID #20 tabs 07/29/23 clavulanate 125 mg tablet metoprolol succinate 25 mg 25 mg PO DAILY #90 tabs 10/01/23 tablet,extended release 24 hr amoxicillin 875 mg-potassium 1 tab PO Q8H 5 days #15 tabs 12/13/23 clavulanate 125 mg tablet Allergies Allergy/AdvReac Type Severity Reaction Status Date / Time No Known Drug Allergies Allergy Verified 11/04/23 14:18 Review of Systems Review of Systems Narrative: HEENT: Denies headache, eye drainage, eye irritation, head trauma, sore throat, voice change Cardiovascular: Denies any chest pain, palpitations, shortness of breath, tachycardia Respiratory: Denies any shortness of breath, cough, wheeze, stridor GI/: Positive for abdominal pain, Denies nausea, vomiting, diarrhea, bright red blood per rectum, melanotic stools, urinary frequency, urinary retention, dysuria, hematuria MSK: Denies any joint pain, muscle pains, swelling Skin: Denies any rashes, lesions, discoloration Neuro: Denies any headache, lightheadedness, dizziness, fainting, weakness Psych: Denies SI/HI Patient History Medical History Idiopathic neuropathy Hyponatremia Viral syndrome Neuropathy Adhesive capsulitis Hypertension Elevated LFTs Medication management Encounter for screening colonoscopy Plantar fasciitis Migraines Surgical History No pertinent past surgical history Social History household members: none Smoking Status: Never smoker alcohol intake: current substance use type: does not use Smoking Status: Never smoker alcohol intake frequency: holidays/special occasions only Substance Use Type: does not use Exam Narrative Exam Narrative: General: Cooperative, comfortable, well-developed, not in acute distress HEENT: Normocephalic, atraumatic, PERRLA, normal sclera, eyelids normal, Neck: Active full range of motion, atraumatic Chest: Normal to inspection, negative crepitus, no overlying erythema ecchymosis Respiratory: Normal respiratory effort, not in acute respiratory distress, clear to auscultation bilaterally negative cough, wheeze, tachypnea, rhonchi, rales Cardiology: Regular rate rhythm negative gallop, murmur, rubs GI/: Normal to inspection, soft, nonrigid, mild tenderness to palpation of the left lower quadrant, exam deferred MSK: Full range of active range of motion of all 4 extremities, atraumatic Skin: No rashes lesions noted Neuro: Alert awake oriented x3, moves all 4 extremities spontaneously, cranial nerves intact, able to answer all questions appropriately follows commands appropriately Psych: Cooperative, negative suicidal or homicidal ideations Initial Vital Signs Initial Vital Signs: Vital Signs Temperature 97.6 F 12/13/23 13:09 Pulse Rate 68 12/13/23 13:09 Respiratory Rate 18 12/13/23 13:09 Blood Pressure 117/71 12/13/23 13:09 Pulse Oximetry 98 12/13/23 13:09 Oxygen Delivery Method Room Air 12/13/23 13:09 Course Orders Ordered: ED Orders 12/13/23 13:23 CT abdomen pelvis w con Stat 12/13/23 13:30 Urine Culture Stat Urine Microscopic Stat 12/13/23 13:40 Complete Blood Count AUTO DIFF Stat Comprehensive Metabolic Panel Stat Lipase Stat Discontinued Medications Amoxicillin/Clavulanate Potassium (Amoxicillin/Clav 875/125 Mg) 1 tab PO NOW ONE Stop: 12/13/23 15:23 Last Admin: 12/13/23 15:40 Dose: 1 tab Documented By: CHARO Sodium Chloride (Normal Saline 0.9%) 1,000 mls @ 1,000 mls/hr IV BOLUS ONE Stop: 12/13/23 14:21 Last Infusion: 12/13/23 15:43 Dose: Infused Documented By: Admin: 12/13/23 13:44 Dose: 1,000 mls/hr Documented By: CHARO Ketorolac Tromethamine (Ketorolac 30 Mg/Ml Vial) 30 mg IV NOW ONE Stop: 12/13/23 13:23 Last Admin: 12/13/23 13:42 Dose: 30 mg Documented By: CHARO Vital Signs Vital signs: Vital Signs - 8 hr 12/13/23 13:09 12/13/23 13:16 12/13/23 13:17 Temperature 97.6 F Pulse Rate 68 69 Respiratory Rate 18 Blood Pressure 117/71 134/65 Pulse Oximetry 98 93 Oxygen Delivery Method Room Air 12/13/23 13:17 12/13/23 14:42 12/13/23 15:00 Temperature Pulse Rate 65 68 66 Respiratory Rate Blood Pressure Pulse Oximetry 94 97 97 Oxygen Delivery Method 12/13/23 15:08 12/13/23 15:08 12/13/23 15:30 Temperature Pulse Rate 66 Respiratory Rate 18 Blood Pressure 136/63 128/63 Pulse Oximetry 100 Oxygen Delivery Method Room Air 12/13/23 15:30 Temperature Pulse Rate 64 Respiratory Rate 15 Blood Pressure Pulse Oximetry 99 Oxygen Delivery Method MDM - Abdominal Pain Differential Diagnosis Differential diagnosis: Likely abdominal pain, diverticulitis and small bowel obstruction Condition is:: Improved Medical Records Attestation: I reviewed the patient's medical records. Lab Data Attestation: I reviewed the patient's lab results. 12/13/23 13:40 12/13/23 13:40 Labs: Lab Results 12/13/23 12/13/23 Range/Units 13:30 13:40 WBC 6.7 (4.5-11.0) X10^3/uL RBC 4.38 (4.0-5.2) X10^6/uL Hgb 13.5 (12.0-16.0) g/dL Hct 40.2 (36-46) % MCV 91.7 (80-100) fL MCH 30.8 (26-34) PG MCHC 33.5 (30-36) % RDW 13.0 (11.6-14.8) % Plt Count 221 (150-400) X10^3/uL Neut % (Auto) 60.7 (50-75) % Lymph % (Auto) 27.5 (25-40) % [place] % (Auto) 9.7 (3-14) % Eos % (Auto) 1.8 L (2-4) % Baso % (Auto) 0.3 (0-2) % Neut # (Auto) 4100 (3079-8653) /uL Lymph # (Auto) 1900 (1873-5239) /uL [place] # (Auto) 700 (0-900) /uL Eos # (Auto) 100 (0-450) /uL Baso # (Auto) 0 (0-100) /uL Sodium 136 L (137-145) mmol/L Potassium 3.9 (3.4-5.1) mmol/L Chloride 100 (98-107) mmol/L Carbon Dioxide 30 (22-32) mmol/L BUN 16 (7-17) mg/dL Creatinine 0.78 (0.52-1.04) mg/dL Estimated GFR > 60 (>60) mL/min BUN/Creatinine Ratio 20.5 (6-22) Glucose 96 (80-110) mg/dL Calcium 9.5 (8.4-10.2) mg/dL Total Bilirubin 0.8 (0.2-1.3) mg/dL AST 24 (14-36) IU/L ALT 15 (<35) IU/L Alkaline Phosphatase 79 (38-126) U/L Total Protein 7.8 (6.3-8.2) g/dL Albumin 4.2 (3.5-5.0) g/dL Globulin 3.6 (1.7-4.1) g/dL Albumin/Globulin Ratio 1.2 (1.0-2.8) Lipase 118 (23-300) U/L Urine RBC 1-5/hpf (0-5/HPF) Urine WBC 10-30/hpf H (0-5/HPF) Ur Squamous Epith Cells 1-5 /hpf (0-5/HPF) Urine Bacteria Few (2-10) H (None) Urine Mucus 1+ H (Negative) Ur Culture Indicated? Specimen cultured Vol Urine Centrifuged 10ml (spun) Point of care testing: Urine Dip Bedside Urine Glucose Negative Bedside Urine Bilirubin - Negative Bedside Urine Ketone +/- 5 Urine Specific [place] 1.030 Bedside Urine Occult Blood +/- Bedside Urine pH 5.0 Bedside Urine Protein - Negative Bedside Urine Urobilinogen - Negative Bedside Urine Nitrite - Negative Bedside Urine Leukocytes +/- [address] scan - abdomen/pelvis: Radiologist's Impression: [address] [address] [address] Scan Report Signed Patient: Kaleigh Haskins I MR#: [id number] : 1945 Acct:[id number] Age/Sex: 78 / F Date of Service: 12/13/23 Loc: ED Accession Number: [id number] Procedure: CT abdomen pelvis w con Ordering Provider: Chance Fry D.O. PROCEDURE: CT ABDOMEN PELVIS W CON INDICATIONS: LLQ abd pain, hx of diverticulitis TECHNIQUE: After the administration of intravenous contrast, axial sections acquired from the lung bases to the pubic symphysis. Coronal and sagittal reformats were performed. For radiation dose reduction, the following was used: automated exposure control, adjustment of mA and/or kV according to patient size. COMPARISON: [facility], CT, CT ABDOMEN PELVIS W CON, 07/29/2023, 7:37. FINDINGS: Image quality: Diagnostic. Lower Chest: No significant findings. ABDOMEN: Similar to the prior exam there is abnormal wall thickening and pericolonic edema in the mid to distal sigmoid colon, although previously was more in the proximal to mid sigmoid colon suggestive of moderate acute versus uktgm-jj-imelhaw diverticulitis. Follow-up is needed following resolution of acute symptoms to exclude underlying lesion which may include neoplasm. Associated several small intramural and extra luminal gas bubbles 2-3 mm but without focal loculated fluid collection to suggest abscess. Otherwise no free intraperitoneal or retroperitoneal gas. Mild nonspecific wall thickening of the stomach commonly artifact from partial nondistention although mild gastritis could have a similar appearance similar to the prior exam. Aqvb-zw-nefxjdxw degenerative changes lower thoracic, lumbar spine most notably at L4-5 and L5-S1 without CT evidence of central stenosis, no fracture, no subluxation. Moderate degenerative changes of the sacroiliac joints unchanged. Mild degenerative changes of the hips unchanged. Liver: Liver is normal in size and attenuation. Gallbladder: No radiopaque gallstones or wall thickening. Biliary ducts: No biliary dilation. Pancreas: No ductal dilation. Spleen: Size is within normal limits. Adrenal Glands: No adrenal nodules. Kidneys and Ureters: No hydronephrosis. No solid mass. No complex renal cystic lesion which requires follow up. Small Bowel: Normal colonic caliber, without significant wall thickening. No obstruction. Ventral Wall: No significant ventral hernia. Abdominal Nodes: No retroperitoneal or mesenteric adenopathy by size criteria. Vessels: Aorta and inferior vena cava are normal in size. PELVIS: Pelvic Organs: Uterus is anteverted and somewhat atrophic with mild 7 mm low-attenuation endometrial cavity, unchanged may represent small endometrial fluid or other process. Bladder: No bladder wall thickening, accounting for underdistention. Pelvic Nodes: No enlarged lymph nodes. Miscellaneous: No inguinal hernias are seen. IMPRESSION: Abnormal wall thickening and pericolonic edema sigmoid colon, suggestive of moderate acute versus gxofn-eb-zjkgtba diverticulitis. Follow-up is needed following resolution of acute symptoms to exclude underlying lesion which may include neoplasm. Associated several small intramural and extra luminal gas bubbles 2-3 mm without abscess. Mild nonspecific wall thickening of the stomach similar to the prior exam. Uterus is anteverted and atrophic with 7 mm low-attenuation endometrial cavity, unchanged may represent small endometrial fluid or other process. MDM Narrative Medical decision making narrative: Patient is a 78-year-old female with a past medical history of hypertension diverticulitis comes into the ED from home for evaluation of abdominal pain, this has been ongoing for the past few days went to urgent care and was instructed to come into the ED for imaging. Patient states that she has also had some minor decreased bowel movements but denies any melanotic stools or bright red blood per rectum. Lab work performed in the emergency room unremarkable no leukocytosis chemistry panel negative for any acute findings. CT scan did show diverticulitis without abscess uncomplicated. Patient non febrile nontoxic appearing non peritoneal nature abdominal exam, patient will be sent home with oral antibiotics and instructed to follow up with outpatient PCP and GI. Upon review of records patient has been treated for diverticulitis previously with Augmentin that work therefore will send patient home on this. Patient was given strict return precautions she verbalized understanding of this and agreed to be discharged home with outpatient follow-up Discharge Plan Departure Patient Disposition: Home Clinical Impression: Diverticulitis Activity Restrictions/Additional Instructions: Please read the discharge instructions sheet carefully and bring all papers to all doctor follow-up visits, as it may contain information that your doctor may want to see. Disease processes change and evolve, if your symptoms worsen or if you develop any new symptoms that are concerning to you please return for evaluation. Your evaluation today does not show any evidence of any life-threatening/serious illnesses requiring admission to the hospital or surgery. Please follow-up with your doctor for re-evaluation in approximately 1 day. Seek immediate medical attention for any worrisome symptoms. Prescriptions: New amoxicillin-pot clavulanate 875-125 mg tablet 1 tab PO Q8H 5 Days Qty: 15 0RF No Action metoprolol succinate 25 mg tablet extended release 24 hr 25 mg PO DAILY Qty: 90 1RF Co Q10 PO Vitamin D3 PO Turmeric PO Ocuvite PO Multivitamin PO amoxicillin-pot clavulanate 875-125 mg tablet 1 tab PO BID Qty: 20 0RF Referrals: John Paul Schwab DO [Primary Care Provider] - Stand Alone Forms: Patient Portal/API
[2023-12-13] MEDS: KETOROLAC 30 MG/ML VIAL IV (13:42)
[2023-12-13] MEDS: SODIUM CHLORIDE 0.9% 1,000 ML 1000 ML IV (13:44)
[2023-12-13 13:47] LABS: Add Manual Diff / Slide Review NO; Basophils Absolute Auto 0 /uL (0-100); Basophils Percent Auto 0.3 % (0-2); Eosinophils Absolute Auto 100 /uL (0-450); Eosinophils Percent Auto 1.8 % (2-4); Hematocrit 40.2 % (36-46); Hemoglobin 13.5 g/dL (12.0-16.0); Lymphocytes Absolute Auto 1900 /uL (1100-4500); Lymphocytes Percent Auto 27.5 % (25-40); Mean Corpuscular HGB Conc 33.5 % (30-36); Mean Corpuscular Hemoglobin 30.8 PG (26-34); Mean Corpuscular Volume 91.7 fL (80-100); Monocytes Absolute Auto 700 /uL (0-900); Monocytes Percent Auto 9.7 % (3-14); Neutrophils Absolute Auto 4100 /uL (1500-7000); Neutrophils Percent Auto 60.7 % (50-75); Platelet Count 221 X10^3/uL (150-400); Red Blood Cell Count 4.38 X10^6/uL (4.0-5.2); White Blood Cell Count 6.7 X10^3/uL (4.5-11.0)
[2023-12-13 13:55] LABS: Bacteria Urine Few (2-10); Culture Indicated Urine Specimen Cultured; Mucus Urine 1+ (Negative); RBC Urine 1-5/HPF (0-5/HPF); Squamous Epithelial Cell Urine 1-5 /HPF (0-5/HPF); Urine Volume 10mL (spun); WBC Urine 10-30/HPF (0-5/HPF)
[2023-12-13 13:58] LABS: Alanine Aminotransferase 15 IU/L (<35); Albumin 4.2 g/dL (3.5-5.0); Albumin Globulin Ratio 1.2 (1.0-2.8); Alkaline Phosphatase 79 U/L (38-126); Aspartate Aminotransferase 24 IU/L (14-36); BUN Creatinine Ratio 20.5 (6-22); Bilirubin Total 0.8 mg/dL (0.2-1.3); Blood Urea Nitrogen 16 mg/dL (7-17); Calcium 9.5 mg/dL (8.4-10.2); Carbon Dioxide 30 mmol/L (22-32); Chloride 100 mmol/L (98-107); Estimated Glomerular Filt Rate > 60 mL/min (>60); Globulin 3.6 g/dL (1.7-4.1); Glucose 96 mg/dL (80-110); HEMOLYSIS < 15 (0-50); Lipase 118 U/L (23-300); Potassium 3.9 mmol/L (3.4-5.1); Sodium 136 mmol/L (137-145); Total Protein 7.8 g/dL (6.3-8.2)
[2023-12-13] MEDS: AMOXICILLIN/CLAV 875/125 MG 1 TAB PO (15:40)
== END 2023-12-13 15:44 | disposition home or self-care (01) ==
PROVIDERS: Emergency Provider Student in an Organized Health Care Education/Training Program; Family Provider Family Medicine; PCP Family Medicine
DX: K57.32 Diverticulitis of large intestine without perforation or abscess without bleeding (principal); I10 Essential (primary) hypertension; Z98.51 Tubal ligation status
CPT/HCPCS: 36415; 74177; 80053; 81003; 81015; 83690; 85025; 87077; 87086; 87186; 96361; 96374; 99284; J1885; Q9967

== ENCOUNTER 2024-01-07 09:00 | Outpatient (RCR) | payer OTHER, SELFPAY ==
--- NOTE | 2023-12-30 16:41 | PT.OIE ---
Current Diagnoses Stiffness of unspecified hip, not elsewhere classified (12/30/23) Dorsalgia, unspecified (12/30/23) Muscle weakness (generalized) (12/30/23) Other muscle spasm (12/30/23) Past Medical History (Last Reviewed 08/06/23 @ 12:25 by John Paul Schwab DO) Adhesive capsulitis Elevated LFTs Encounter for screening colonoscopy Hypertension Hyponatremia Idiopathic neuropathy Medication management Migraines Neuropathy Plantar fasciitis Viral syndrome Past Surgical History (Last Reviewed 08/06/23 @ 12:25 by John Paul Schwab DO) No pertinent past surgical history Visit Care Team Role Provider Type John Paul Schwab DO Attending Provider Physician Family Provider Primary Care Provider Referring Provider Specialty: [facility] Practice Address: [address] [place] [address], [facility] Email: [email or web address] Physical Therapy Initial Evaluation PT-OP-A Visit Information Start: 12/23/23 19:05 Freq: Status: Active Protocol: Document 12/30/23 08:17 LRN (Rec: 12/30/23 09:09 LRN [id number]) Out-Patient Physical Therapy Visit Information Visit Information Visit Type Initial Evaluation Visit Start Time 08:17 Visit Stop Time 09:07 Visit Number 1 Evaluation Information Evaluation Date 12/30/23 Precautions Precautions Neuropathy of nikunj feet ( tingling in bottoms of feet). PT-OP-B Current Condition Start: 12/23/23 19:05 Freq: Status: Active Protocol: Document 12/30/23 08:17 LRN (Rec: 12/30/23 09:09 LRN [id number]) Current Condition History of Current Condition Onset Date 1 month ago Current Complaints Low level LBP, when gets up in AM, more mves better it is. History of Current Condition Insidious onset of LBP in center and on L side of spine. She has had similar pain in the past, but not as severe. She was told she had arthritis. Pt states a long time has past since she made the PT appt, so her back doesn 't bother her as much anymore. Initially she took Alleve for 3-4 days, currently not taking any medications. She plays pickleball and has not stopped. Initially, pain was sharp but comfortable when lying down and not moving. She has been able to sleep 2 hrs before having to shift to relieve pain. Her back pain is present first in AM and if sits for awhile (>7 minutes) she has pain when getting up. Prior Treatments and Tests X-rays. Treatment Goals Patient/Caregiver Goals Pt goal is: - Get out of bed w/o pain. - After sitting, for >5' no pain sit to standing. - Improve sleep tolerance to prior function (5 hrs), currently 2 hrs tolerated. Personal Factors Other Personal Factors That May Effect History of back pain. Therapy/Recovery Pt plays [employer]TV[employer] consistently. PT-OP-C Subjective Start: 12/23/23 19:05 Freq: Status: Active Protocol: Document 12/30/23 08:17 LRN (Rec: 12/30/23 09:09 LRN [id number]) Patient Questionnaires Oswestry Low Back Index Oswestry Score 4 Oswestry Impairment 1 to 19% Impaired (Score 1-19) OP-PT Pain Assessment Pain Assessment Grid Paper Pain Assessment Grid Completed Yes Location Low back Pain Location Details L5-S1 intraspinal space and facet joint region. Intensity 4 Scale Used Numeric (0 - 10) Description- Other Sharp/dull pain during still to moving position. Frequency Intermittent Pain Duration few minutes with movement Pain Aggravating Factors Changing Position Pain Alleviating Factors Medication Other Pain Alleviating Factors Lying on sides. PT-OP-G Mobility & Gait Start: 12/23/23 19:05 Freq: Status: Active Protocol: Document 12/30/23 08:17 LRN (Rec: 12/30/23 09:09 LRN [id number]) OP Mobility Evaluation Bed Mobility Rolling Independent, no pain. Supine to and from Sit Independent. Transfers Sit to Stand Independent with pain on sit> stand. OP Gait Assessment Gait Gait Assistance Required: Independent Able to Maintain Weight Bearing Status Yes During Gait Assistive Devices Assistive Device None Comments Gait Comments No LBP Stair Climbing Evaluation Evaluation Level of Assist On Stairs Independent Comments Stair Climbing Comments No LBP PT-OP-H Neuro Start: 12/23/23 19:05 Freq: Status: Active Protocol: Document 12/30/23 08:17 LRN (Rec: 12/30/23 09:09 LRN [id number]) Sensation Evaluation Gross Sensation Sensation Description [place] Comments Summary Comments Tingly neuropathy in the plantar aspect of bilateral feet. PT-OP-J Posture/Palpation/Skin Start: 12/23/23 19:05 Freq: Status: Active Protocol: Document 12/30/23 08:17 LRN (Rec: 12/30/23 09:09 LRN [id number]) Posture Evaluation Position Standing L-Spine Posture Shifted Left Arm Posture (L) Internally Rotated,(R) Internally Rotated Pelvis Posture Anteriorly Tilted,(R) Iliac Crest Superior Weight Distribution Balanced Comments Posture Comments Dowagers hump, slight pelvic anter tilt. Palpation Assessment Location Low Back Palpation Location L lumbar paraspinals, QL Palpation Findings Soft Tissue Tightness Posterior hips Palpation Location L lateral hip/TFL/mildly gluteals Palpation Findings Soft Tissue Tightness PT-OP-K Range of Motion Start: 12/23/23 19:05 Freq: Status: Active Protocol: Document 12/30/23 08:17 LRN (Rec: 12/30/23 09:09 LRN [id number]) Lumbar Spine Range of Motion Lumbar Spine Active Degrees Testing Position Standing Flexion 75 Extension 15 Rotation Left 30 Rotation Right 10 Lateral Flexion Left 20 Lateral Flexion Right 10 Hip Goniometric Range of Motion Hip Right Passive Testing Position Supine Straight Leg Raise 75 Internal Rotation 20 External Rotation 75 Left Passive Testing Position Supine Straight Leg Raise 75 Internal Rotation 25 External Rotation 70 PT-OP-L Special Tests Start: 12/23/23 19:05 Freq: Status: Active Protocol: Document 12/30/23 08:17 LRN (Rec: 12/30/23 09:09 LRN [id number]) Special Tests Lumbar Spine Special Tests Standing Flexion Test Results - Prone Press Up Test Results + Straight Leg Raise Test Results 75 bilaterally Comments LB felt better after HS stretch Vertical Spine Loading Test Results - PT-OP-M Strength Start: 12/23/23 19:05 Freq: Status: Active Protocol: Document 12/30/23 08:17 LRN (Rec: 12/30/23 09:09 LRN [id number]) Hip Strength Hip Manual Muscle Testing Right Comments Strength is 5/5 except as indicated above. Left External Rotation 4+ Good+ Comments Strength is 5/5 except as indicated above. PT-OP-Q Treatments Start: 12/23/23 19:05 Freq: Status: Active Protocol: Document 12/30/23 08:17 LRN (Rec: 12/30/23 09:09 LRN [id number]) Self-Care/Home Management Treatment Education Other Education Discussed results of evaluation, goals, treatment, and plan of care (POC) with pt , attendance/cx/dns policy; pt agreeable to evaluation, goals, treatment, attendance/ cx/dns policy and POC. Activities Self-Care/Home Management Activities Issued (pt performed 60 sec stretch of each) & reviewed HEP: stretches: L hip ER (fig 4) & R hip Piriformis (ankle over knee > KTC), Nikunj hamstring/LE neural. Issued but put on hold Iliopsoas stretch and I/S she could try R lateral hip stretch. PT-OP-T Assessment and Plan Start: 12/23/23 19:05 Freq: Status: Active Protocol: Document 12/30/23 08:17 LR (Rec: 12/30/23 09:09 [facility] [id number]) Physical Therapy Assessment Rehab Potential Rehabilitation Potential Excellent Evaluation Complexity Number of Personal Factors/Comorbidities 1-2 Number of Body Systems Impaired 4 or More Clinical Presentation at Evaluation Evolving Impairments Impairments Activity Tolerance,Pain,ROM, Soft Tissue Mobility,Transfers Other Impairments Sleeping impaired to every 2 hrs due to pain/discomfort. Goals Three Impairment Sleep disturbance due to LBP and LLBP (must shift every 2 hrs) Short Term Goal (STG) Improve core stability and mobility with the pt aime to improve sleep tolerance to prior function (5 hrs), currently 2 hrs tolerated. STG Duration 01/28/24 [employer] Crew Member Goal (LTG) Improve core stability/ strength with pt able to get out of bed first in the morning w/o LBP. LTG Duration 03/24/24 Two Impairment LBP and LLBP with sit>stand transfers Short Term Goal (STG) Pt will be educated in sit/ stand posture and transfers with hip hinging to demonstrate hip hinging technique with sit<>stand transfers. STG Duration 01/28/24 Air Crew Member Goal (LTG) After sitting, for >5' pt will be able to transfer sit to standing without pain. LTG Duration 03/24/24 One Impairment Pt lacks appropriate self care HEP. Short Term Goal (STG) Pt will be educated and will demonstrate log roll transfers , proper body mechanics for ADLs, proper sitting/standing posture. STG Duration 01/28/24 Alf Goal (LTG) Pt will be independent in an effective self care HEP for core/hip strengthening/ mobility ex's. LTG Duration 03/24/24 Assessment Summary Assessment Pt is a 78 yo female who presents with L5-S1 joint dysfunction (probable facet joints) and possible but not likely disc involvement, due to soft tissue tightness and decreased lumbar & hip mobility. She has tight Piriformis and hamstring ms, and mild weakness of L hip ER' s. She did have a + prone press up indicating possible disc involved, but - vertical spine loading and - repetitive forward bending tests; therefore probable joint related. Assessment with manual L/S traction is needed. The pt will benefit from skilled physical therapy to as indicated below to work towards achieving the patient' s goals. Physical Therapy Plan Frequency and Duration Frequency of Treatment 2x/Week Duration of treatment (weeks) 12 Plan of Care Start Date 12/30/23 Plan of Care End Date 03/24/24 Therapeutic Interventions Therapeutic Interventions Home Exercise Program,Manual Therapy,Neuromuscular Re- education,Self-Care/Home Management,Soft Tissue Mobilization,Therapeutic Activities,Therapeutic Exercises Modalities Cold Pack/Ice Massage,Electric Stimulation,Hot Packs, Ultrasound Next Visit Focus/Plan Next Note Type Treatment Note Next Visit Plan Next: Assess LE DTRs. Review HEP: L hip ER (fig 4) & R hip Piriformis (ankle over knee > KTC), Nikunj hamstring/LE neural . Add: L latera hip & after assessing hip flexors, Iliopsoas stretch as needed. Ther Ex: Core stab. Ther Act: Transfer training ( hip hinging) and body mechanics training. Manual: Decrease soft tissue tone of L L/S paraspinals, and lateral hip ms. Progress HEP as needed. POC: Therapeutic Ex ( strengthening/ROM), Therapeutic Activity (transfer training), manual therapy ( STM/JMT), Gait & Balance training, Pt Education (HEP, Edema and pain mgmt).
--- NOTE | 2024-01-04 10:29 | PT.OTN ---
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 PT-OP-B Current Condition Start: 12/23/23 19:05 Freq: Status: Active Protocol: Document 12/30/23 08:17 LRN (Rec: 12/30/23 09:09 LRN [id number]) Current Condition History of Current Condition Onset Date 1 month ago Current Complaints Low level LBP, when gets up in AM, more mves better it is. History of Current Condition Insidious onset of LBP in center and on L side of spine. She has had similar pain in the past, but not as severe. She was told she had arthritis. Pt states a long time has past since she made the PT appt, so her back doesn 't bother her as much anymore. Initially she took Alleve for 3-4 days, currently not taking any medications. She plays pickleball and has not stopped. Initially, pain was sharp but comfortable when lying down and not moving. She has been able to sleep 2 hrs before having to shift to relieve pain. Her back pain is present first in AM and if sits for awhile (>7 minutes) she has pain when getting up. Prior Treatments and Tests X-rays. Treatment Goals Patient/Caregiver Goals Pt goal is: - Get out of bed w/o pain. - After sitting, for >5' no pain sit to standing. - Improve sleep tolerance to prior function (5 hrs), currently 2 hrs tolerated. Personal Factors Other Personal Factors That May Effect History of back pain. Therapy/Recovery Pt plays pickleball consistently. PT-OP-C Subjective Start: 12/23/23 19:05 Freq: Status: Active Protocol: Document 01/04/24 09:06 LRN (Rec: 01/04/24 10:16 LRN [id number]) OP-PT Subjective Patient Comments Patient Comments Requests review of exercises. PT-OP-G Mobility & Gait Start: 12/23/23 19:05 Freq: Status: Active Protocol: Document 12/30/23 08:17 LRN (Rec: 12/30/23 09:09 LRN [id number]) OP Mobility Evaluation Bed Mobility Rolling Independent, no pain. Supine to and from Sit Independent. Transfers Sit to Stand Independent with pain on sit> stand. OP Gait Assessment Gait Gait Assistance Required: Independent Able to Maintain Weight Bearing Status Yes During Gait Assistive Devices Assistive Device None Comments Gait Comments No LBP Stair Climbing Evaluation Evaluation Level of Assist On Stairs Independent Comments Stair Climbing Comments No LBP PT-OP-H Neuro Start: 12/23/23 19:05 Freq: Status: Active Protocol: Document 01/04/24 09:06 LRN (Rec: 01/04/24 10:16 LRN [id number]) Deep Tendon Reflex & Clonus Assessment Deep Tendon Reflex Right Achilles Deep Tendon Reflex 2+ Normal Left Achilles Deep Tendon Reflex 2+ Normal Right Patellar Deep Tendon Reflex 2+ Normal Left Patellar Deep Tendon Reflex 2+ Normal PT-OP-J Posture/Palpation/Skin Start: 12/23/23 19:05 Freq: Status: Active Protocol: Document 12/30/23 08:17 LRN (Rec: 12/30/23 09:09 LRN [id number]) Posture Evaluation Position Standing L-Spine Posture Shifted Left Arm Posture (L) Internally Rotated,(R) Internally Rotated Pelvis Posture Anteriorly Tilted,(R) Iliac Crest Superior Weight Distribution Balanced Comments Posture Comments Dowagers hump, slight pelvic anter tilt. Palpation Assessment Location Low Back Palpation Location L lumbar paraspinals, QL Palpation Findings Soft Tissue Tightness Posterior hips Palpation Location L lateral hip/TFL/mildly gluteals Palpation Findings Soft Tissue Tightness PT-OP-K Range of Motion Start: 12/23/23 19:05 Freq: Status: Active Protocol: Document 12/30/23 08:17 LRN (Rec: 12/30/23 09:09 LRN [id number]) Lumbar Spine Range of Motion Lumbar Spine Active Degrees Testing Position Standing Flexion 75 Extension 15 Rotation Left 30 Rotation Right 10 Lateral Flexion Left 20 Lateral Flexion Right 10 Hip Goniometric Range of Motion Hip Right Passive Testing Position Supine Straight Leg Raise 75 Internal Rotation 20 External Rotation 75 Left Passive Testing Position Supine Straight Leg Raise 75 Internal Rotation 25 External Rotation 70 PT-OP-L Special Tests Start: 12/23/23 19:05 Freq: Status: Active Protocol: Document 12/30/23 08:17 LRN (Rec: 12/30/23 09:09 LRN [id number]) Special Tests Lumbar Spine Special Tests Standing Flexion Test Results - Prone Press Up Test Results + Straight Leg Raise Test Results 75 bilaterally Comments LB felt better after HS stretch Vertical Spine Loading Test Results - PT-OP-M Strength Start: 12/23/23 19:05 Freq: Status: Active Protocol: Document 12/30/23 08:17 LRN (Rec: 12/30/23 09:09 LRN [id number]) Hip Strength Hip Manual Muscle Testing Right Comments Strength is 5/5 except as indicated above. Left External Rotation 4+ Good+ Comments Strength is 5/5 except as indicated above. PT-OP-Q Treatments Start: 12/23/23 19:05 Freq: Status: Active Protocol: Document 01/04/24 09:06 LRN (Rec: 01/04/24 10:16 LRN [id number]) Therapeutic Exercises Supine Exercises Iliopsoas Side bilateral Reps/Minutes 6' Comments + Mauricio Test. Extra time needed for proper positioning. Hamsting/LE neural glide Side bilateral Reps/Minutes 5' Comments Extra time needed for proper positioning. Fig 4 Side left Reps/Minutes 2' Lateral Hip stretch Side right Reps/Minutes 2' Comments Extra time needed for proper positioning. Piriformis stretch Supine Exercise Name Knee to opp shoulder Side right Reps/Minutes 6' Comments Extra time needed for proper positioning and max lon stretch Sitting Exercises Sit<>supine Sitting Exercise Name Training for log roll technique, coordinating breath /Kegel Reps/Minutes training Comments Constant v cuing needed for mvmts and core stab. Sit<>stand Sitting Exercise Name Training for proper hip hinge f/b exercise Reps/Minutes training f/b 10x Comments Cuing for straight back/TA tight/Fwd bend for wgt transfer on feet sit & st Self-Care/Home Management Treatment Activities Self-Care/Home Management Activities Review of stretches and addition of HEP. HEP as of today: L hip ER (fig 4) & R hip Piriformis (ankle over knee > KTC), Nikunj hamstring/LE neural. Added L Lateral hip and bilateral Iliopsoas stretch. Issued handouts for: Proper sitting/standing posture, LB stress with posturing, & transfers coordinating breath/ Kegel w/instructions for TA tightening. PT-OP-T Assessment and Plan Start: 12/23/23 19:05 Freq: Status: Active Protocol: Document 01/04/24 09:06 LRN (Rec: 01/04/24 10:16 LRN [id number]) Physical Therapy Assessment Goals Three Impairment Sleep disturbance due to LBP and LLBP (must shift every 2 hrs) Short Term Goal (STG) Improve core stability and mobility with the pt aime to improve sleep tolerance to prior function (5 hrs), currently 2 hrs tolerated. STG Duration 01/28/24 Skilled Nursing Goal (LTG) Improve core stability/ strength with pt able to get out of bed first in the morning w/o LBP. LTG Duration 03/24/24 Two Impairment LBP and LLBP with sit>stand transfers Short Term Goal (STG) Pt will be educated in sit/ stand posture and transfers with hip hinging to demonstrate hip hinging technique with sit<>stand transfers. 01/04/24: Pt educated in sit/ stand posture and transfers in /out of bed and sit<>stand with hip hinging. STG Duration 01/28/24 progressed 01/04/24 (need pt to show) Skilled Nursing Goal (LTG) After sitting, for >5' pt will be able to transfer sit to standing without pain. LTG Duration 03/24/24 One Impairment Pt lacks appropriate self care HEP. Short Term Goal (STG) Pt will be educated and will demonstrate log roll transfers , proper body mechanics for ADLs, proper sitting/standing posture. 01/04/24: Pt educated in log roll transfer and proper sit/ stand posture. STG Duration 01/28/24 progressed 01/04/24 (need body mech for ADL trng) Blood Bank Order Control Clerk Goal (LTG) Pt will be independent in an effective self care HEP for core/hip strengthening/ mobility ex's. 01/04/24: HEP issued 12/30/23: stretches: L hip ER (fig 4) & R hip Piriformis (ankle over knee > KTC), Nikunj hamstring/LE neural. Added L Lateral hip and bilateral Iliopsoas stretch. LTG Duration 03/24/24 progressed 01/04/24 Assessment Summary Assessment 78 yo female presenting with L5-S1 jt (probable facet) dysfunction due to soft tissue tightness & decr'd lumbar/hip (piriformis/HS) mobility and mild weakness of L hip ER's. Today, pt needed review and training for hip ex's. Extra time was needed to educated pt in added hip stretches with multiple review of ex's. It appears pt needs repetition of learning, and may need further review. Good hip hinging and transfers with v cuing, expect further training needed. Physical Therapy Plan Frequency and Duration Frequency of Treatment 2x/Week Duration of treatment (weeks) 12 Plan of Care Start Date 12/30/23 Plan of Care End Date 03/24/24 Next Visit Focus/Plan Next Note Type Treatment Note Next Visit Plan Next: Monitor for + prone press up. Assess for adherence to proper transfers & hip hinging. Add: body mechanics ADL education/ training. Ther Ex: Core stab. Manual: Decrease soft tissue tone of L L/S paraspinals, and lateral hip ms. Progress HEP as needed. POC: Therapeutic Ex ( strengthening/ROM), Therapeutic Activity (), manual therapy (STM/JMT), Gait & Balance training, Pt Education (HEP, Edema and pain mgmt).
--- NOTE | 2024-01-07 09:53 | PT.OTN ---
Current Diagnoses Stiffness of unspecified hip, not elsewhere classified (01/07/24) Dorsalgia, unspecified (01/07/24) Muscle weakness (generalized) (01/07/24) Other muscle spasm (01/07/24) Physical Therapy Treatment Note PT-OP-A Visit Information Start: 12/23/23 19:05 Freq: Status: Active Protocol: Document 01/07/24 09:01 SP (Rec: 01/07/24 09:54 SP [id number]) Out-Patient Physical Therapy Visit Information Visit Information Visit Type Treatment Note Visit Start Time 09:01 Visit Stop Time 09:53 Visit Number 3 Number of ATHLETIC EQUIPMENT MANAGER Visits 1 Evaluation Information Evaluation Date 12/30/23 Precautions Precautions Neuropathy of benjamin feet ( tingling in bottoms of feet). PT-OP-B Current Condition Start: 12/23/23 19:05 Freq: Status: Active Protocol: Document 12/30/23 08:17 LRN (Rec: 12/30/23 09:09 LRN [id number]) Current Condition History of Current Condition Onset Date 1 month ago Current Complaints Low level LBP, when gets up in AM, more mves better it is. History of Current Condition Insidious onset of LBP in center and on L side of spine. She has had similar pain in the past, but not as severe. She was told she had arthritis. Pt states a long time has past since she made the PT appt, so her back doesn 't bother her as much anymore. Initially she took Alleve for 3-4 days, currently not taking any medications. She plays pickleball and has not stopped. Initially, pain was sharp but comfortable when lying down and not moving. She has been able to sleep 2 hrs before having to shift to relieve pain. Her back pain is present first in AM and if sits for awhile (>7 minutes) she has pain when getting up. Prior Treatments and Tests X-rays. Treatment Goals Patient/Caregiver Goals Pt goal is: - Get out of bed w/o pain. - After sitting, for >5' no pain sit to standing. - Improve sleep tolerance to prior function (5 hrs), currently 2 hrs tolerated. Personal Factors Other Personal Factors That May Effect History of back pain. Therapy/Recovery Pt plays pickleball consistently. PT-OP-C Subjective Start: 12/23/23 19:05 Freq: Status: Active Protocol: Document 01/07/24 09:01 SP (Rec: 01/07/24 09:54 SP [id number]) OP-PT Subjective Patient Comments Patient Comments Pt reports her low back is feeling better but mid back more bothersome today. She states compliant with proper technique sit<> sup and STS now and can do properly with no problems. She arrives stating she got a referral for her R shld about 4 days ago and wants to know when can just focus on this. She reports is going out of town for 2 weeks on the and wants to stop therapy for her back and start her referral for her R shld before leaves so has exercises to do while out of town. Her R shld is worse and feels more important at this point. PT-OP-G Mobility & Gait Start: 12/23/23 19:05 Freq: Status: Active Protocol: Document 12/30/23 08:17 LRN (Rec: 12/30/23 09:09 LRN [id number]) OP Mobility Evaluation Bed Mobility Rolling Independent, no pain. Supine to and from Sit Independent. Transfers Sit to Stand Independent with pain on sit> stand. OP Gait Assessment Gait Gait Assistance Required: Independent Able to Maintain Weight Bearing Status Yes During Gait Assistive Devices Assistive Device None Comments Gait Comments No LBP Stair Climbing Evaluation Evaluation Level of Assist On Stairs Independent Comments Stair Climbing Comments No LBP PT-OP-H Neuro Start: 12/23/23 19:05 Freq: Status: Active Protocol: Document 01/04/24 09:06 LRN (Rec: 01/04/24 10:16 LRN [id number]) Deep Tendon Reflex & Clonus Assessment Deep Tendon Reflex Right Achilles Deep Tendon Reflex 2+ Normal Left Achilles Deep Tendon Reflex 2+ Normal Right Patellar Deep Tendon Reflex 2+ Normal Left Patellar Deep Tendon Reflex 2+ Normal PT-OP-J Posture/Palpation/Skin Start: 12/23/23 19:05 Freq: Status: Active Protocol: Document 12/30/23 08:17 LRN (Rec: 12/30/23 09:09 LRN [id number]) Posture Evaluation Position Standing L-Spine Posture Shifted Left Arm Posture (L) Internally Rotated,(R) Internally Rotated Pelvis Posture Anteriorly Tilted,(R) Iliac Crest Superior Weight Distribution Balanced Comments Posture Comments Dowagers hump, slight pelvic anter tilt. Palpation Assessment Location Low Back Palpation Location L lumbar paraspinals, QL Palpation Findings Soft Tissue Tightness Posterior hips Palpation Location L lateral hip/TFL/mildly gluteals Palpation Findings Soft Tissue Tightness PT-OP-K Range of Motion Start: 12/23/23 19:05 Freq: Status: Active Protocol: Document 12/30/23 08:17 LRN (Rec: 12/30/23 09:09 LRN [id number]) Lumbar Spine Range of Motion Lumbar Spine Active Degrees Testing Position Standing Flexion 75 Extension 15 Rotation Left 30 Rotation Right 10 Lateral Flexion Left 20 Lateral Flexion Right 10 Hip Goniometric Range of Motion Hip Right Passive Testing Position Supine Straight Leg Raise 75 Internal Rotation 20 External Rotation 75 Left Passive Testing Position Supine Straight Leg Raise 75 Internal Rotation 25 External Rotation 70 PT-OP-L Special Tests Start: 12/23/23 19:05 Freq: Status: Active Protocol: Document 12/30/23 08:17 LRN (Rec: 12/30/23 09:09 LRN [id number]) Special Tests Lumbar Spine Special Tests Standing Flexion Test Results - Prone Press Up Test Results + Straight Leg Raise Test Results 75 bilaterally Comments LB felt better after HS stretch Vertical Spine Loading Test Results - PT-OP-M Strength Start: 12/23/23 19:05 Freq: Status: Active Protocol: Document 12/30/23 08:17 LRN (Rec: 12/30/23 09:09 LRN [id number]) Hip Strength Hip Manual Muscle Testing Right Comments Strength is 5/5 except as indicated above. Left External Rotation 4+ Good+ Comments Strength is 5/5 except as indicated above. PT-OP-Q Treatments Start: 12/23/23 19:05 Freq: Status: Active Protocol: Document 01/07/24 09:01 SP (Rec: 01/07/24 09:54 SP [id number]) Therapeutic Exercises Supine Exercises Iliopsoas Side bilateral Reps/Minutes 6' Comments Extra time spent ed positioning end of the table more, impr stretch felt Hamsting/LE neural glide Side bilateral Reps/Minutes 2 reps 30 SH stretch, then 10 ankle pumps Comments Extra time slow lower leg lift gentle HS stretch, then APs slow motion Fig 4 Side left Reps/Minutes 30 SH x2 reps Comments Ed L LE only per PT request- good anterior hip stretch pnfree Lateral Hip stretch Side right Reps/Minutes 30 x2 Comments CUed for lateral toward LLE pnfree range tolerance, keep back down Piriformis stretch Supine Exercise Name Knee to opp shoulder Side right Reps/Minutes 30 x2 Comments improved form and hold tolerance Sitting Exercises Thoracic Rotation Sitting Exercise Name initiated in PT for midback mobility, added to HEP /c HO Side bilateral Resistance AROM Equipment Used arms across chest Reps/Minutes x10 Comments Extra time spent for postural alignment and form, pnfree range- gd response Sit<>supine Sitting Exercise Name Training for log roll technique, coordinating breath /Kegel Reps/Minutes training Comments occ cues fully on side down and up but R shl hurts WB on table Sit<>stand Sitting Exercise Name Training for proper hip hinge f/b exercise Reps/Minutes x5 with proper form Comments improved hip hinge and slow descend and using paper for support. Therapeutic Activity Therapeutic Activity body mechanics Name ADLs: dishes, gardening: quadruped and 1/2 kneeling Reps/Minutes 20' Comments Education, provided demonstration and pt able to follow through positioning of each, cues standing for straight back, neutral pelvis and wt shift between soft unlocked BLEs to reduce low back recruitment and allow TA engagement spinal support. squatting to picking machine operator helper items at home and after weed garden using hip hinge bring items close and use leg stand up. 1/ 2 knee and quadruped with straight back wt shift between BLEs and use of 1 arm for support when weeding. Improved form and response that does feel better to do this way. Provided HO for recall proper form. Sit<>stand Name Training for proper hip hinge f/b exercise Reps/Minutes 2' Comments continued education on TA and hip hinge. Improved performance and use of TA engagment for spinal support and reduction LB recruitment has experienced in the past. sit<> supine Name Training for log roll technique, coordinating breath /Kegel Reps/Minutes 5' Comments Continued education on proper performance sit>sidelying onto arm then trunk side while bring feet up on table>supine, best if knees are bent to support TA engagment and no twisting or strain on low back . Improved with reps. Provided HO to review for proper performance with no reports of pain. Self-Care/Home Management Treatment Education Patient Education Home Exercise Program,Joint Protection,Pain Management, Safety Other Education time spent education set up for Mauricio stretch more end table, which leg which ex for proper decreased tension Added TS rotation to HEP with education on set up/proper form to allow decrease mid and low back tension while supporting R shld comfort positioning. PT-OP-T Assessment and Plan Start: 12/23/23 19:05 Freq: Status: Active Protocol: Document 01/07/24 09:01 SP (Rec: 01/07/24 09:54 SP [id number]) Physical Therapy Assessment Goals Three Impairment Sleep disturbance due to LBP and LLBP (must shift every 2 hrs) Short Term Goal (STG) Improve core stability and mobility with the pt aime to improve sleep tolerance to prior function (5 hrs), currently 2 hrs tolerated. 01/07/24: pt stated using pillows to proper alignment sleeping and is helping. STG Duration 01/28/24 progressing 01/07/24 Putty Mixer And Applier Goal (LTG) Improve core stability/ strength with pt able to get out of bed first in the morning w/o LBP. 01/07/24: GOAL MET: pt reports trying use body mechanics getting in/out bed now and no problems. LTG Duration 03/24/24 Two Impairment LBP and LLBP with sit>stand transfers Short Term Goal (STG) Pt will be educated in sit/ stand posture and transfers with hip hinging to demonstrate hip hinging technique with sit<>stand transfers. 01/04/24: Pt educated in sit/ stand posture and transfers in /out of bed and sit<>stand with hip hinging. 01/07/24: GOAL MET: pt improved performance of transfer and bed mobiltiy no pain, occasional cues fully on side before transition position. Reports no pain doing. STG Duration 01/28/24 GOAL MET 01/07/24 Putty Mixer And Applier Goal (LTG) After sitting, for >5' pt will be able to transfer sit to standing without pain. LTG Duration 03/24/24 One Impairment Pt lacks appropriate self care HEP. Short Term Goal (STG) Pt will be educated and will demonstrate log roll transfers , proper body mechanics for ADLs, proper sitting/standing posture. 01/04/24: Pt educated in log roll transfer and proper sit/ stand posture. 01/07/24: improved demonstration and provided HOs for proper posturing, carryover shown with HO body mechanics for standing ADLs, squatting picking machine operator helper items, quadruped and 1/2 kneeling during gardening, with improved form during. STG Duration 01/28/24 improved 01/07/24 Putty Mixer And Applier Goal (LTG) Pt will be independent in an effective self care HEP for core/hip strengthening/ mobility ex's. 01/04/24: HEP issued 12/30/23: stretches: L hip ER (fig 4) & R hip Piriformis (ankle over knee > KTC), Benjamin hamstring/LE neural. Added L Lateral hip and bilateral Iliopsoas stretch. 01/07/24: progressing good form with stretching, helping with back tightness and pain reduction. Initiated seated TS rotation pnfree range with HO provided. LTG Duration 03/24/24 progressed 01/07/24 Progress Towards Goals Progress Comments MET LTG #3- no pain getting in /outbed am. MET STG #2- no pain transfers and bed mobility, improved form. Assessment Summary Assessment Pt arrives without HOs and no extra for ATHLETIC EQUIPMENT MANAGER to reference. Improved form with continued instruction and demonstration corrections of supine stretching noted in PT documentation of last tx, reports no pain and does help with back tightness reduction. Initiated seated TS rotation for mid back mobility with good response, painfree. Continued instruction and carryover education with return demonstration body mechanics bed mobility, STS, transfers and initiated proper form and alignment during ADLs standing, quadruped and 1 /2 kneeling for spinal alignment with reports of improvement of mobility and no pain it does feel better doing this way. Pt reports wishes to DC this encounter seeing PT for her low back seeing how improving and continue to be seen for her R shld of which she just received a new referral for. Physical Therapy Plan Frequency and Duration Frequency of Treatment 2x/Week Duration of treatment (weeks) 12 Plan of Care Start Date 12/30/23 Plan of Care End Date 03/24/24 Therapeutic Interventions Therapeutic Interventions Home Exercise Program,Manual Therapy,Neuromuscular Re- education,Self-Care/Home Management,Soft Tissue Mobilization,Therapeutic Activities,Therapeutic Exercises Modalities Cold Pack/Ice Massage,Electric Stimulation,Hot Packs, Ultrasound Next Visit Focus/Plan Next Note Type Discharge Summary Next Visit Plan Next: REview TS rotation added for mobility. Can review body mechanics trng with HOs provided. Pt request DC back and continue see her form R shld, new referral. Manual: Decrease soft tissue tone of L L/S paraspinals, and lateral hip ms. Progress HEP as needed. POC: Therapeutic Ex ( strengthening/ROM), Therapeutic Activity (), manual therapy (STM/JMT), Gait & Balance training, Pt Education (HEP, Edema and pain mgmt).
--- NOTE | 2024-01-11 11:22 | PT-OP ANOTE ---
Per phone pt apologizes for missing appt. States she will attend the next appt. Pt informed next appt 01/14/24 at 9a with Dennise Cohn PTA.
--- NOTE | 2024-01-14 09:16 | PT-OP ANOTE ---
Pt arrived for scheduled appt with SHUTTLE THREADER today, continues to state her back is feeling and returned to normal activities, incorporating exercises and proper body mechanics as instructed. Pt requested as end of previous tx that she be seen for her R shoulder of which have a referral. SHUTTLE THREADER continued discussion with pt that a SHUTTLE THREADER can't treat her shoulder until has been evaluated, and pt verbilized understanding. Pt stated would like to cancel today's appt and will be out of town for 2 weeks until next scheduled appt with PT for DC encounter for her back. Pt awaits phone call from our clinic for when she can be evaluated for her shoulder, stated willing to see another PT. SHUTTLE THREADER discussed conversation with supervising Advertising Sales Consultant and recommended primary PT Mikki can complete DC for pt's back and either see pt at at next scheduled appt on 02/08/24 or after completed DC, can make an appt with available PT when returns to evaluate pt's R shld as pt has requested.
--- NOTE | 2024-01-14 09:16 | PT-OP ANOTE ---
Pt arrived for scheduled appt with LACQUER SIZER today, continues to state her back is feeling and returned to normal activities, incorporating exercises and proper body mechanics as instructed. Pt requested as end of previous tx that she be seen for her R shoulder of which have a referral. LACQUER SIZER continued discussion with pt that a LACQUER SIZER can't treat her shoulder until has been evaluated, and pt verbilized understanding. LACQUER SIZER stated last appt was with her primary PT to complete back DC and discuss when will/can evaluate R shld as pt requested. Pt appologized for missing last appt, forgot. Pt stated would like to cancel today's appt and will be out of town for 2 weeks and hoping when returns to scheduled appt to be seen for her R shld, advice on how her PT will DC encounter for her back. Pt awaits phone call from our clinic for when she can be evaluated for her shoulder, stated willing to see another PT. LACQUER SIZER discussed pt conversation with supervising Analytical Laboratory Technician and was recommended primary PT can complete DC for pt's back while pt out of town or at next scheduled appt on 02/08/24. ISAAK stated pt can make an appt with available PT or current primary PT when she returns to evaluate pt's R shld as requested.
--- NOTE | 2024-01-14 09:16 | PT-OP ANOTE ---
Addendum entered and electronically signed by Dennise Cohn PTA 01/14/24 09:46: MACHINE VENEER REPAIRER instructed schedulers to call pt and provide update with appts and will see PT as scheduled. Original Note: Pt arrived for scheduled appt with MACHINE VENEER REPAIRER today, continues to state her back is feeling and returned to normal activities, incorporating exercises and proper body mechanics as instructed. Pt requested as end of previous tx that she be seen for her R shoulder of which have a referral. MACHINE VENEER REPAIRER continued discussion with pt that a MACHINE VENEER REPAIRER can't treat her shoulder until has been evaluated, and pt verbilized understanding. Pt stated would like to cancel today's appt and will be out of town for 2 weeks until next scheduled appt with PT for DC encounter for her back. Pt awaits phone call from our clinic for when she can be evaluated for her shoulder, stated willing to see another PT. MACHINE VENEER REPAIRER discussed conversation with supervising Breeding Technician and recommended pt see primary PT Mikki at next scheduled appt on 02/08/24 for DC and then next appt PT can evaluate pt's R shld as requested.
--- NOTE | 2024-02-03 08:41 | PT.OPDS ---
Current Diagnoses Stiffness of unspecified hip, not elsewhere classified (01/07/24) Dorsalgia, unspecified (01/07/24) Muscle weakness (generalized) (01/07/24) Other muscle spasm (01/07/24) Visit Care Team Role Provider Type John Paul Schwab DO Attending Provider Physician Family Provider Primary Care Provider Referring Provider Specialty: [facility] Practice Address: [address] [place] [address], [facility] Email: [email or web address] Visit Number Visit Number 3 Discharge Summary PT-OP-B Current Condition Start: 12/23/23 19:05 Freq: Status: Active Protocol: Document 12/30/23 08:17 LRN (Rec: 12/30/23 09:09 LRN [id number]) Current Condition History of Current Condition Onset Date 1 month ago Current Complaints Low level LBP, when gets up in AM, more mves better it is. History of Current Condition Insidious onset of LBP in center and on L side of spine. She has had similar pain in the past, but not as severe. She was told she had arthritis. Pt states a long time has past since she made the PT appt, so her back doesn 't bother her as much anymore. Initially she took Alleve for 3-4 days, currently not taking any medications. She plays pickleball and has not stopped. Initially, pain was sharp but comfortable when lying down and not moving. She has been able to sleep 2 hrs before having to shift to relieve pain. Her back pain is present first in AM and if sits for awhile (>7 minutes) she has pain when getting up. Prior Treatments and Tests X-rays. Treatment Goals Patient/Caregiver Goals Pt goal is: - Get out of bed w/o pain. - After sitting, for >5' no pain sit to standing. - Improve sleep tolerance to prior function (5 hrs), currently 2 hrs tolerated. Personal Factors Other Personal Factors That May Effect History of back pain. Therapy/Recovery Pt plays pickleball consistently. PT-OP-C Subjective Start: 12/23/23 19:05 Freq: Status: Active Protocol: Document 01/07/24 09:01 SP (Rec: 01/07/24 09:54 SP [id number]) OP-PT Subjective Patient Comments Patient Comments Pt reports her low back is feeling better but mid back more bothersome today. She states compliant with proper technique sit<> sup and STS now and can do properly with no problems. She arrives stating she got a referral for her R shld about 4 days ago and wants to know when can just focus on this. She reports is going out of town for 2 weeks on the 18 and wants to stop therapy for her back and start her referral for her R shld before leaves so has exercises to do while out of town. Her R shld is worse and feels more important at this point. PT-OP-G Mobility & Gait Start: 12/23/23 19:05 Freq: Status: Active Protocol: Document 12/30/23 08:17 LRN (Rec: 12/30/23 09:09 LRN [id number]) OP Mobility Evaluation Bed Mobility Rolling Independent, no pain. Supine to and from Sit Independent. Transfers Sit to Stand Independent with pain on sit> stand. OP Gait Assessment Gait Gait Assistance Required: Independent Able to Maintain Weight Bearing Status Yes During Gait Assistive Devices Assistive Device None Comments Gait Comments No LBP Stair Climbing Evaluation Evaluation Level of Assist On Stairs Independent Comments Stair Climbing Comments No LBP PT-OP-H Neuro Start: 12/23/23 19:05 Freq: Status: Active Protocol: Document 01/04/24 09:06 LRN (Rec: 01/04/24 10:16 LRN [id number]) Deep Tendon Reflex & Clonus Assessment Deep Tendon Reflex Right Achilles Deep Tendon Reflex 2+ Normal Left Achilles Deep Tendon Reflex 2+ Normal Right Patellar Deep Tendon Reflex 2+ Normal Left Patellar Deep Tendon Reflex 2+ Normal PT-OP-J Posture/Palpation/Skin Start: 12/23/23 19:05 Freq: Status: Active Protocol: Document 12/30/23 08:17 LRN (Rec: 12/30/23 09:09 LRN [id number]) Posture Evaluation Position Standing L-Spine Posture Shifted Left Arm Posture (L) Internally Rotated,(R) Internally Rotated Pelvis Posture Anteriorly Tilted,(R) Iliac Crest Superior Weight Distribution Balanced Comments Posture Comments Dowagers hump, slight pelvic anter tilt. Palpation Assessment Location Low Back Palpation Location L lumbar paraspinals, QL Palpation Findings Soft Tissue Tightness Posterior hips Palpation Location L lateral hip/TFL/mildly gluteals Palpation Findings Soft Tissue Tightness PT-OP-K Range of Motion Start: 12/23/23 19:05 Freq: Status: Active Protocol: Document 12/30/23 08:17 LRN (Rec: 12/30/23 09:09 LRN [id number]) Lumbar Spine Range of Motion Lumbar Spine Active Degrees Testing Position Standing Flexion 75 Extension 15 Rotation Left 30 Rotation Right 10 Lateral Flexion Left 20 Lateral Flexion Right 10 Hip Goniometric Range of Motion Hip Right Passive Testing Position Supine Straight Leg Raise 75 Internal Rotation 20 External Rotation 75 Left Passive Testing Position Supine Straight Leg Raise 75 Internal Rotation 25 External Rotation 70 PT-OP-L Special Tests Start: 12/23/23 19:05 Freq: Status: Active Protocol: Document 12/30/23 08:17 LRN (Rec: 12/30/23 09:09 LRN [id number]) Special Tests Lumbar Spine Special Tests Standing Flexion Test Results - Prone Press Up Test Results + Straight Leg Raise Test Results 75 bilaterally Comments LB felt better after HS stretch Vertical Spine Loading Test Results - PT-OP-M Strength Start: 12/23/23 19:05 Freq: Status: Active Protocol: Document 12/30/23 08:17 LRN (Rec: 12/30/23 09:09 LRN [id number]) Hip Strength Hip Manual Muscle Testing Right Comments Strength is 5/5 except as indicated above. Left External Rotation 4+ Good+ Comments Strength is 5/5 except as indicated above. PT-OP-T Assessment and Plan Start: 12/23/23 19:05 Freq: Status: Active Protocol: Document 02/03/24 08:35 LRN (Rec: 02/03/24 08:41 LRN [id number]) Physical Therapy Assessment Goals Three Impairment Sleep disturbance due to LBP and LLBP (must shift every 2 hrs) Short Term Goal (STG) Improve core stability and mobility with the pt aime to improve sleep tolerance to prior function (5 hrs), currently 2 hrs tolerated. 01/07/24: pt stated using pillows to proper alignment sleeping and is helping. STG Duration 01/28/24 progressed 01/07/24, DC pt request. Penitentiary Goal (LTG) Improve core stability/ strength with pt able to get out of bed first in the morning w/o LBP. 01/07/24: GOAL MET: pt reports trying use body mechanics getting in/out bed now and no problems. LTG Duration 03/24/24 (02/03/24: Early DC per pt request). Two Impairment LBP and LLBP with sit>stand transfers Short Term Goal (STG) Pt will be educated in sit/ stand posture and transfers with hip hinging to demonstrate hip hinging technique with sit<>stand transfers. 01/04/24: Pt educated in sit/ stand posture and transfers in /out of bed and sit<>stand with hip hinging. 01/07/24: GOAL MET: pt improved performance of transfer and bed mobiltiy no pain, occasional cues fully on side before transition position. Reports no pain doing. STG Duration 01/28/24 GOAL MET 01/07/24 Wood Drilling Machine Operator Goal (LTG) After sitting, for >5' pt will be able to transfer sit to standing without pain. LTG Duration 03/24/24 (02/03/24: Early DC per pt request). One Impairment Pt lacks appropriate self care HEP. Short Term Goal (STG) Pt will be educated and will demonstrate log roll transfers , proper body mechanics for ADLs, proper sitting/standing posture. 01/04/24: Pt educated in log roll transfer and proper sit/ stand posture. 01/07/24: improved demonstration and provided HOs for proper posturing, carryover shown with HO body mechanics for standing ADLs, squatting fish bait picker items, quadruped and 1/2 kneeling during gardening, with improved form during. STG Duration 01/28/24 improved 01/07/24, ( 02/03/24: Early DC per pt request). Penitentiary Goal (LTG) Pt will be independent in an effective self care HEP for core/hip strengthening/ mobility ex's. 01/04/24: HEP issued 12/30/23: stretches: L hip ER (fig 4) & R hip Piriformis (ankle over knee > KTC), Benjamin hamstring/LE neural. Added L Lateral hip and bilateral Iliopsoas stretch. 01/07/24: progressing good form with stretching, helping with back tightness and pain reduction. Initiated seated TS rotation pnfree range with HO provided. LTG Duration 03/24/24 progressed 01/07/24, (02/03/24: Early DC per pt request). Assessment Summary Assessment Per [facility] note of 01/14/24 & admin note of 02/03/24: Pt back is feeling better and she requests DC for her back rehab and is wanting treatment for her R shoulder Rehab referral; therefore pt is being discharged from therapy at pt request. Physical Therapy Plan Discharge Physical Therapy Discharge Reasons Patient Request Discharge Comments Pt's back is feeling better and would like to start Shoulder rehabilitation.
== END 2024-02-08 08:56 | disposition home or self-care (01) ==
LOC: PHYS 09:00
PROVIDERS: Family Provider Family Medicine; PCP Family Medicine; Referring Provider Family Medicine; Visit Provider Family Medicine
DX: M54.9 Dorsalgia, unspecified (principal); M62.838 Other muscle spasm; M62.81 Muscle weakness (generalized); M25.659 Stiffness of unspecified hip, not elsewhere classified
CPT/HCPCS: 97110; 97162; 97530; 97535

== ENCOUNTER 2024-04-04 08:15 | Outpatient (RCR) | payer OTHER, SELFPAY ==
--- NOTE | 2024-02-03 10:43 | PT.OIE ---
Current Diagnoses Other enthesopathies, not elsewhere classified (02/03/24) Past Medical History (Last Reviewed 08/06/23 @ 12:25 by John Paul Schwab DO) Adhesive capsulitis Elevated LFTs Encounter for screening colonoscopy Hypertension Hyponatremia Idiopathic neuropathy Medication management Migraines Neuropathy Plantar fasciitis Viral syndrome Past Surgical History (Last Reviewed 08/06/23 @ 12:25 by John Paul Schwab DO) No pertinent past surgical history Visit Care Team Role Provider Type John Paul Schwab DO Attending Provider Physician Family Provider Primary Care Provider Referring Provider Specialty: [facility] Practice Address: [address] [place] [address] Email: [email or web address] Physical Therapy Initial Evaluation PT-OP-A Visit Information Start: 02/03/24 07:30 Freq: Status: Active Protocol: Document 02/03/24 09:02 LRN (Rec: 02/03/24 10:37 LRN [id number]) Out-Patient Physical Therapy Visit Information Visit Information Visit Type Initial Evaluation Visit Start Time 09:02 Visit Stop Time 09:48 Visit Number 1 Evaluation Information Evaluation Date 02/03/24 Precautions Precautions Neuropathy of nikunj feet. PT-OP-B Current Condition Start: 02/03/24 07:30 Freq: Status: Active Protocol: Document 02/03/24 09:02 LRN (Rec: 02/03/24 10:37 LRN [id number]) Current Condition History of Current Condition Onset Date 3 months ago Current Complaints Pain w/mvmt in R anterior brachium and anterior chest. History of Current Condition R shoulder pain 3 months ago, thinks started due to playing pickle ball. Was on vacation the last 2 weeks on cruise to [place], and hasn't been playing pickleball, but was moving her suitcase around so her condition is worse. States she has tried a topical cream (thinks it is an anti- inflammatory), that was not helpful. Pt is R handed. Prior Treatments and Tests None Treatment Goals Patient/Caregiver Goals Pt goals: - Eliminate pain to not have to avoid using the arm with lifting (especially out to side), and in static standing holding hands together. - No pain with functional activities: dishes, lifting dog (11#), sweeping floor, dressing (putting top on overhead), night rolling in bed at night (pushing with R arm) & driving (turning to right). - Be able to return to playing pickleball w/o pain. - Pt consistent in an independent in a self care HEP . Prior Functional Status Baseline Function- Recreation/Hobbies Plays pickle ball 2x/week. Current Functional Impairments (Reported) Functional Limitations- Recreation/ Hasn't played pickleball for 2 Hobbies weeks since on vacation. Supposed to return today. Personal Factors Other Personal Factors That May Effect History of back pain. Therapy/Recovery Pt plays pickleball consistently. PT-OP-C Subjective Start: 02/03/24 07:30 Freq: Status: Active Protocol: Document 02/03/24 09:02 LRClarice (Rec: 02/03/24 10:37 [facility] [id number]) Patient Questionnaires Quick Dash- Upper Extremity Quick Dash UE Score 47.72 Quick Dash UE Impairment 40 to 59% Impaired (Score 40- 59) OP-PT Pain Assessment Pain Assessment Grid Paper Pain Assessment Grid Completed Yes Location R shoulder Pain Location Details Anterior shoulder jt & brachium, Pec Minor and Major at anterior shoulder Intensity 8 Scale Used Numeric (0 - 10) Description Sharp Frequency With movement and use Pain Aggravating Factors Changing Position,ADL's, Activity,Exercise,Standing, Sitting,Lifting PT-OP-E Functional Tests Start: 02/03/24 07:30 Freq: Status: Active Protocol: Document 02/03/24 09:02 LRClarice (Rec: 02/03/24 10:37 N [id number]) Functional Tests Apley's Scratch Test Action 1- Left Below inferior angle of opp scapula Action 1- Right Acromion process at UT angle Action 2- Left T2-T3 Action 2- Right Mid posterior head Action 3- Left T6 Action 3- Right T11 PT-OP-F Manual Assessment Start: 02/03/24 07:30 Freq: Status: Active Protocol: Document 02/03/24 09:02 LRClarice (Rec: 02/03/24 10:37 [facility] [id number]) Manual Assessments Soft Tissue Assessment Soft Tissue Mobility Assessment Atrophy of R Rhomboid Minor, Upper Rhomboid Major, Infraspinatus PT-OP-H Neuro Start: 02/03/24 07:30 Freq: Status: Active Protocol: Document 02/03/24 09:02 LRN (Rec: 02/03/24 10:37 LRN [id number]) Sensation Evaluation Gross Sensation Gross Sensation WNL Comments Summary Comments Tingly neuropathy in the plantar aspect of bilateral feet. Deep Tendon Reflex & Clonus Assessment Deep Tendon Reflex Right Tricep Deep Tendon Reflex 0 Absent Left Tricep Deep Tendon Reflex 2+ Normal Right Bicep Deep Tendon Reflex 1+ Diminished Left Bicep Deep Tendon Reflex 2+ Normal PT-OP-J Posture/Palpation/Skin Start: 02/03/24 07:30 Freq: Status: Active Protocol: Document 02/03/24 09:02 LRN (Rec: 02/03/24 10:37 LRN [id number]) Posture Evaluation Position Standing L-Spine Posture Shifted Left Scapula Posture (R) Rotated Down,(R) Depressed Arm Posture (L) Internally Rotated,(R) Internally Rotated Pelvis Posture Anteriorly Tilted,(R) Iliac Crest Superior Weight Distribution Balanced Comments Posture Comments Mild R shoulder high, dowagers hump, very mild scoliosis with upper apex on left @T6, lower on R @T8, pelvic anter tilt is slight, R leg in ER Palpation Assessment Location R Anterior chest Palpation Location R Pecs, Coracoid process, Anterior Scalenes, UT Palpation Details No Tenderness R anterior brachium Palpation Location Biceps and anterior GHJ capsule Palpation Details No tenderness PT-OP-K Range of Motion Start: 02/03/24 07:30 Freq: Status: Active Protocol: Document 02/03/24 09:02 LRN (Rec: 02/03/24 10:37 LRN [id number]) Cervical Spine Range of Motion Cervical Spine Active Degrees Testing Position Sitting Flexion 45 Extension 50 Rotation Left 30 Rotation Right 40 Lateral Flexion Left 10 Lateral Flexion Right 10 Comments No pain or discomfort Shoulder Goniometric Range of Motion Shoulder Right Passive Shoulder ROM WFL No Testing Position Supine Flexion 170 Abduction 90 External Rotation at 90 degrees 105 Abduction Internal Rotation 40 Left Passive Shoulder ROM WFL No Testing Position Supine Flexion 150 External Rotation at 90 degrees 70 Abduction Internal Rotation 60 Right Active Shoulder ROM WFL No Testing Position Sitting Flexion 104 Extension 15 Abduction 45 External Rotation at 0 degrees Abduction 45 Left Active Shoulder ROM WFL Yes Testing Position Sitting Flexion 147 Extension 45 Abduction 137 External Rotation at 0 degrees Abduction 45 PT-OP-L Special Tests Start: 02/03/24 10:37 Freq: Status: Active Protocol: Document 02/03/24 09:02 LRN (Rec: 02/03/24 10:40 LRN [id number]) Special Tests Shoulder Special Tests AC Joint Compression Test Results - Right Elevation Impingement Test Results + Right in sitting, negative passively in supine IR/Horizontal ADD Impingement Test Results + Right in sitting, negative passively in supine PT-OP-M Strength Start: 02/03/24 07:30 Freq: Status: Active Protocol: Document 02/03/24 09:02 LRN (Rec: 02/03/24 10:37 LRN [id number]) Cervical Spine Strength Cervical Spine Manual Muscle Testing Testing Position Sitting Comments Strength is 5/5 and symmetrical. Shoulder Strength Shoulder Manual Muscle Testing Right Flexion 2 Poor Extension 2 Poor Abduction (C5) 2 Poor Adduction 2 Poor External Rotation 3 Fair Internal Rotation 5 Normal Horizontal Abduction 2 Poor Horizontal Adduction 2 Poor Comments Sitting: Strength is 5/5 ( including horiz AB/AD), except as indicated above (note horiz AB/AD is 5/5 in supine) Left Comments Sitting: Generally 5/5 strength PT-OP-Q Treatments Start: 02/03/24 07:30 Freq: Status: Active Protocol: Document 02/03/24 09:02 LRN (Rec: 02/03/24 10:37 LRN [id number]) Self-Care/Home Management Treatment Education Other Education Discussed results of evaluation, goals, treatment, and plan of care (POC) with pt , attendance/cx/dns policy; pt agreeable to evaluation, goals, treatment, attendance/ cx/dns policy and POC. Activities Self-Care/Home Management Activities I/S pt active shoulder ER/IR with elbows by sides, to be done throughout day in any position. Recommended pt hold on playing pickleball for now. PT-OP-T Assessment and Plan Start: 02/03/24 07:30 Freq: Status: Active Protocol: Document 02/03/24 09:02 LRN (Rec: 02/03/24 10:37 LRN [id number]) Physical Therapy Assessment Rehab Potential Rehabilitation Potential Good Evaluation Complexity Number of Body Systems Impaired 1-2 Clinical Presentation at Evaluation Evolving Impairments Impairments Activity Tolerance,Functional Mobility,Pain,Posture,ROM, Strength,Transfers Goals Three Impairment Decreased R shoulder strength (generally 2/5) Short Term Goal (STG) Pt will be able to lift her 11 # dog, and push with R arm while rolling in bed at night w/o pain. STG Duration 03/17/24 Mass Communications Instructor Goal (LTG) Improve R shoulder strength with pt able to return to playing pickleball w/tolerable pain. LTG Duration 04/28/24 Two Impairment R shoulder Pain with functional activities (UE QUICKDASH score - 47) Short Term Goal (STG) Improve R shoulder/scapular strength with pt able to stand and hold hands w/o R shoulder pain and reduce pain with pt able to lift the arm forward and out to the side with tolerable discomfort or improved UE QuickDASH score 39 or less. STG Duration 03/17/24 [facility] Goal (LTG) Improve level of functional with pt able to do functional activities with tolerable discomfort or no pain: doing dishes, sweeping floor, dressing (putting top on overhead), night rolling in bed at night (pushing with R arm) & driving (turning to right). LTG Duration 04/28/24 One Impairment Pt lacks appropriate self care HEP. Short Term Goal (STG) Pt will be educated and will demonstrate proper scapulohumeral rhythm with R shoulder mvmt and best practice R shoulder positioning for nighttime sleep. STG Duration 03/17/24 [facility] Goal (LTG) Pt will be independent and consistent with a self care HEP for R shoulder/scapular ROM/strengthening and mobility ex's. LTG Duration 04/28/24 Assessment Summary Assessment Pt is a 78 yo female who presents with R RC dysfunction and poor scapular positioning . She has greater pain with active use of her R shoulder and with static positioning. She has good R shoulder PROM, except a little limited with ER/IR and active movement creates anterior shoulder pain . There was no area of palpable pain in her shoulder. If the pt is not able to improve with R shoulder strengthening it is recommended further testing for rotator cuff or labral soft tissue dysfunction. Physical Therapy Plan Frequency and Duration Frequency of Treatment 2x/Week Duration of treatment (weeks) 12 Plan of Care Start Date 02/03/24 Plan of Care End Date 04/28/24 Therapeutic Interventions Therapeutic Interventions Home Exercise Program,Manual Therapy,Neuromuscular Re- education,Self-Care/Home Management,Soft Tissue Mobilization,Therapeutic Activities,Therapeutic Exercises Modalities Cold Pack/Ice Massage,Electric Stimulation,Hot Packs, Ultrasound Next Visit Focus/Plan Next Note Type Treatment Note Next Visit Plan Next: Recheck UE DTRs & other RC/labral special tests; start neck/shoulder AROM ex's and light R RC/scapular strengthening. POC: Therapeutic Ex ( strengthening/ROM), Therapeutic Activity ( nighttime positioning for comfort), manual therapy (STM/ JMT), Pt Education (HEP, Edema and pain mgmt).
--- NOTE | 2024-02-08 08:43 | PT-OP ANOTE ---
Msg left notifying pt of missed appt and her next scheduled appt. Reminded pt to call in regarding missed appts.
--- NOTE | 2024-02-10 09:43 | PT.OTN ---
Current Diagnoses Other enthesopathies, not elsewhere classified (02/10/24) Physical Therapy Treatment Note PT-OP-A Visit Information Start: 02/03/24 07:30 Freq: Status: Active Protocol: Document 02/10/24 09:02 SP (Rec: 02/10/24 09:46 SP [id number]) Out-Patient Physical Therapy Visit Information Visit Information Visit Type Treatment Note Visit Start Time 09:03 Visit Stop Time 09:43 Visit Number 2 (05/08 with eval) Number of HVAC INSTALLATION TECHNICIAN Visits 1 Evaluation Information Evaluation Date 02/03/24 Precautions Precautions Neuropathy of nikunj feet. PT-OP-B Current Condition Start: 02/03/24 07:30 Freq: Status: Active Protocol: Document 02/03/24 09:02 LRN (Rec: 02/03/24 10:37 LRN [id number]) Current Condition History of Current Condition Onset Date 3 months ago Current Complaints Pain w/mvmt in R anterior brachium and anterior chest. History of Current Condition R shoulder pain 3 months ago, thinks started due to playing pickle ball. Was on vacation the last 2 weeks on cruise to [place], and hasn't been playing pickleball, but was moving her suitcase around so her condition is worse. States she has tried a topical cream (thinks it is an anti- inflammatory), that was not helpful. Pt is R handed. Prior Treatments and Tests None Treatment Goals Patient/Caregiver Goals Pt goals: - Eliminate pain to not have to avoid using the arm with lifting (especially out to side), and in static standing holding hands together. - No pain with functional activities: dishes, lifting dog (11#), sweeping floor, dressing (putting top on overhead), night rolling in bed at night (pushing with R arm) & driving (turning to right). - Be able to return to playing pickleball w/o pain. - Pt consistent in an independent in a self care HEP . Prior Functional Status Baseline Function- Recreation/Hobbies Plays pickle ball 2x/week. Current Functional Impairments (Reported) Functional Limitations- Recreation/ Hasn't played pickleball for 2 Hobbies weeks since on vacation. Supposed to return today. Personal Factors Other Personal Factors That May Effect History of back pain. Therapy/Recovery Pt plays pickleball consistently. PT-OP-C Subjective Start: 02/03/24 07:30 Freq: Status: Active Protocol: Document 02/10/24 09:02 SP (Rec: 02/10/24 09:46 SP [id number]) OP-PT Subjective Patient Comments Patient Comments Pt reports only has pain in anterior R shld when lift out to side and up, and picking up something. PT-OP-E Functional Tests Start: 02/03/24 07:30 Freq: Status: Active Protocol: Document 02/03/24 09:02 LRN (Rec: 02/03/24 10:37 LRN [id number]) Functional Tests Apley's Scratch Test Action 1- Left Below inferior angle of opp scapula Action 1- Right Acromion process at UT angle Action 2- Left T2-T3 Action 2- Right Mid posterior head Action 3- Left T6 Action 3- Right T11 PT-OP-F Manual Assessment Start: 02/03/24 07:30 Freq: Status: Active Protocol: Document 02/03/24 09:02 LRN (Rec: 02/03/24 10:37 LRN [id number]) Manual Assessments Soft Tissue Assessment Soft Tissue Mobility Assessment Atrophy of R Rhomboid Minor, Upper Rhomboid Major, Infraspinatus PT-OP-H Neuro Start: 02/03/24 07:30 Freq: Status: Active Protocol: Document 02/03/24 09:02 LRN (Rec: 02/03/24 10:37 LRN [id number]) Sensation Evaluation Gross Sensation Gross Sensation WNL Comments Summary Comments Tingly neuropathy in the plantar aspect of bilateral feet. Deep Tendon Reflex & Clonus Assessment Deep Tendon Reflex Right Tricep Deep Tendon Reflex 0 Absent Left Tricep Deep Tendon Reflex 2+ Normal Right Bicep Deep Tendon Reflex 1+ Diminished Left Bicep Deep Tendon Reflex 2+ Normal PT-OP-J Posture/Palpation/Skin Start: 02/03/24 07:30 Freq: Status: Active Protocol: Document 02/03/24 09:02 LRN (Rec: 02/03/24 10:37 LRN [id number]) Posture Evaluation Position Standing L-Spine Posture Shifted Left Scapula Posture (R) Rotated Down,(R) Depressed Arm Posture (L) Internally Rotated,(R) Internally Rotated Pelvis Posture Anteriorly Tilted,(R) Iliac Crest Superior Weight Distribution Balanced Comments Posture Comments Mild R shoulder high, dowagers hump, very mild scoliosis with upper apex on left @T6, lower on R @T8, pelvic anter tilt is slight, R leg in ER Palpation Assessment Location R Anterior chest Palpation Location R Pecs, Coracoid process, Anterior Scalenes, UT Palpation Details No Tenderness R anterior brachium Palpation Location Biceps and anterior GHJ capsule Palpation Details No tenderness PT-OP-K Range of Motion Start: 02/03/24 07:30 Freq: Status: Active Protocol: Document 02/03/24 09:02 LRN (Rec: 02/03/24 10:37 LRN [id number]) Cervical Spine Range of Motion Cervical Spine Active Degrees Testing Position Sitting Flexion 45 Extension 50 Rotation Left 30 Rotation Right 40 Lateral Flexion Left 10 Lateral Flexion Right 10 Comments No pain or discomfort Shoulder Goniometric Range of Motion Shoulder Right Passive Shoulder ROM WFL No Testing Position Supine Flexion 170 Abduction 90 External Rotation at 90 degrees 105 Abduction Internal Rotation 40 Left Passive Shoulder ROM WFL No Testing Position Supine Flexion 150 External Rotation at 90 degrees 70 Abduction Internal Rotation 60 Right Active Shoulder ROM WFL No Testing Position Sitting Flexion 104 Extension 15 Abduction 45 External Rotation at 0 degrees Abduction 45 Left Active Shoulder ROM WFL Yes Testing Position Sitting Flexion 147 Extension 45 Abduction 137 External Rotation at 0 degrees Abduction 45 PT-OP-L Special Tests Start: 02/03/24 10:37 Freq: Status: Active Protocol: Document 02/03/24 09:02 LRN (Rec: 02/03/24 10:40 LRN [id number]) Special Tests Shoulder Special Tests AC Joint Compression Test Results - Right Elevation Impingement Test Results + Right in sitting, negative passively in supine IR/Horizontal ADD Impingement Test Results + Right in sitting, negative passively in supine PT-OP-M Strength Start: 02/03/24 07:30 Freq: Status: Active Protocol: Document 02/03/24 09:02 LRN (Rec: 02/03/24 10:37 LRN [id number]) Cervical Spine Strength Cervical Spine Manual Muscle Testing Testing Position Sitting Comments Strength is 5/5 and symmetrical. Shoulder Strength Shoulder Manual Muscle Testing Right Flexion 2 Poor Extension 2 Poor Abduction (C5) 2 Poor Adduction 2 Poor External Rotation 3 Fair Internal Rotation 5 Normal Horizontal Abduction 2 Poor Horizontal Adduction 2 Poor Comments Sitting: Strength is 5/5 ( including horiz AB/AD), except as indicated above (note horiz AB/AD is 5/5 in supine) Left Comments Sitting: Generally 5/5 strength PT-OP-Q Treatments Start: 02/03/24 07:30 Freq: Status: Active Protocol: Document 02/10/24 09:02 SP (Rec: 02/10/24 09:46 SP [id number]) Therapeutic Exercises Sidelying Exercises R Shoulder Trio Sidelying Exercise Name ABD 145 deg, FF 170 deg, HABD- added to HEP Side right Resistance AROM (add DB next tx) Equipment Used L SL Reps/Minutes 10 reps each- cues slow pacing fluid control /c humeral ER if needed Comments extra time & tactile cues for adduction & depression & UR scap mobility Sitting Exercises Neck stretches Sitting Exercise Name UT, LS, scalenes/SCM- added to HEP /c HO Side right Equipment Used LUE gentle overpressure for improved stretch reported Reps/Minutes 30 SH each Comments time spent set up and proper form/direction pull Manual Therapy Treatment Joint Mobilizations R scapulothoracic Direction adduction/depression, upward rotation Body Position L SL Comments PROM, AAROM and tactile cues rhomboid & LT fac during AROM abd improved no pinching anterior and to GH jt line. Self-Care/Home Management Treatment Education Patient Education Body Mechanics,Posture Other Education Time spent continue edcation on use of pillows for spinal, RUE and between BLEs support sleeping. PT-OP-T Assessment and Plan Start: 02/03/24 07:30 Freq: Status: Active Protocol: Document 02/10/24 09:02 SP (Rec: 02/10/24 09:46 SP [id number]) Physical Therapy Assessment Goals Three Impairment Decreased R shoulder strength (generally 2/5) Short Term Goal (STG) Pt will be able to lift her 11 # dog, and push with R arm while rolling in bed at night w/o pain. STG Duration 03/17/24 [employer]atch Free[employer] Operator Goal (LTG) Improve R shoulder strength with pt able to return to playing pickleball w/tolerable pain. LTG Duration 04/28/24 Two Impairment R shoulder Pain with functional activities (UE QUICKDASH score - 47) Short Term Goal (STG) Improve R shoulder/scapular strength with pt able to stand and hold hands w/o R shoulder pain and reduce pain with pt able to lift the arm forward and out to the side with tolerable discomfort or improved UE QuickDASH score 39 or less. STG Duration 03/17/24 [employer]atch Freezer Operator Goal (LTG) Improve level of functional with pt able to do functional activities with tolerable discomfort or no pain: doing dishes, sweeping floor, dressing (putting top on overhead), night rolling in bed at night (pushing with R arm) & driving (turning to right). 02/10/24: ed use pillows for support RUE, spine and BLEs for alignment support. LTG Duration 04/28/24 progressing 02/10/24 One Impairment Pt lacks appropriate self care HEP. Short Term Goal (STG) Pt will be educated and will demonstrate proper scapulohumeral rhythm with R shoulder mvmt and best practice R shoulder positioning for nighttime sleep. 02/10/24: pt making gains in AROM L SL: FF 170*, ABD 145 * HABD (add DB next tx). STG Duration 03/17/24 progressing 02/10/24 Batch Freezer Operator Goal (LTG) Pt will be independent and consistent with a self care HEP for R shoulder/scapular ROM/strengthening and mobility ex's. 02/10/24: added L SL R shld aBD, FF and HABD, seated neck stretches UT, LS, scalenes. LTG Duration 04/28/24 progressing 02/10/24 Assessment Summary Assessment Pt is a 78 yo female who presents with R RC dysfunction and poor scapular positioning . Pt improved AROM R shld L SL with verbal and tactile cues for slow pacing, scapular glide support adduction/ depression and UR with rhomboid and LT facilitation and humeral ER as needed through arc mid range with reports decrease pain anterior R shoulder with reps and improved scapular self corrections adduction and depression. Good feedback less R lateral neck tension with instruction on neck stretches today. Physical Therapy Plan Frequency and Duration Frequency of Treatment 2x/Week Duration of treatment (weeks) 12 Plan of Care Start Date 02/03/24 Plan of Care End Date 04/28/24 Therapeutic Interventions Therapeutic Interventions Home Exercise Program,Manual Therapy,Neuromuscular Re- education,Self-Care/Home Management,Soft Tissue Mobilization,Therapeutic Activities,Therapeutic Exercises Modalities Cold Pack/Ice Massage,Electric Stimulation,Hot Packs, Ultrasound Next Visit Focus/Plan Next Note Type Treatment Note Next Visit Plan Next: Recheck UE DTRs & other RC/labral special tests; REview HEP: L SL AROM FF, ABD, HABD. POC: Therapeutic Ex ( strengthening/ROM), Therapeutic Activity ( nighttime positioning for comfort), manual therapy (STM/ JMT), Pt Education (HEP, Edema and pain mgmt).
--- NOTE | 2024-02-15 17:26 | PT.OTN ---
Current Diagnoses Other enthesopathies, not elsewhere classified (02/15/24) Physical Therapy Treatment Note PT-OP-A Visit Information Start: 02/03/24 07:30 Freq: Status: Active Protocol: Document 02/15/24 13:53 [facility] (Rec: 02/15/24 15:22 [facility] [id number]) Out-Patient Physical Therapy Visit Information Visit Information Visit Type Treatment Note Visit Number 3(3/10 with eval) Number of LAYOUT MECHANIC Visits 0 PT-OP-B Current Condition Start: 02/03/24 07:30 Freq: Status: Active Protocol: Document 02/03/24 09:02 LRN (Rec: 02/03/24 10:37 LRN [id number]) Current Condition History of Current Condition Onset Date 3 months ago Current Complaints Pain w/mvmt in R anterior brachium and anterior chest. History of Current Condition R shoulder pain 3 months ago, thinks started due to playing pickle ball. Was on vacation the last 2 weeks on cruise to [place], and hasn't been playing pickleball, but was moving her suitcase around so her condition is worse. States she has tried a topical cream (thinks it is an anti- inflammatory), that was not helpful. Pt is R handed. Prior Treatments and Tests None Treatment Goals Patient/Caregiver Goals Pt goals: - Eliminate pain to not have to avoid using the arm with lifting (especially out to side), and in static standing holding hands together. - No pain with functional activities: dishes, lifting dog (11#), sweeping floor, dressing (putting top on overhead), night rolling in bed at night (pushing with R arm) & driving (turning to right). - Be able to return to playing pickleball w/o pain. - Pt consistent in an independent in a self care HEP . Prior Functional Status Baseline Function- Recreation/Hobbies Plays pickle ball 2x/week. Current Functional Impairments (Reported) Functional Limitations- Recreation/ Hasn't played pickleball for 2 Hobbies weeks since on vacation. Supposed to return today. Personal Factors Other Personal Factors That May Effect History of back pain. Therapy/Recovery Pt plays pickleball consistently. PT-OP-C Subjective Start: 02/03/24 07:30 Freq: Status: Active Protocol: Document 02/15/24 13:53 [facility] (Rec: 02/15/24 15:22 [facility] [id number]) OP-PT Subjective Patient Comments Patient Comments Pt reports feels a little better since last session PT-OP-E Functional Tests Start: 02/03/24 07:30 Freq: Status: Active Protocol: Document 02/03/24 09:02 LRN (Rec: 02/03/24 10:37 LRN [id number]) Functional Tests Apley's Scratch Test Action 1- Left Below inferior angle of opp scapula Action 1- Right Acromion process at UT angle Action 2- Left T2-T3 Action 2- Right Mid posterior head Action 3- Left T6 Action 3- Right T11 PT-OP-F Manual Assessment Start: 02/03/24 07:30 Freq: Status: Active Protocol: Document 02/03/24 09:02 LRN (Rec: 02/03/24 10:37 LRN [id number]) Manual Assessments Soft Tissue Assessment Soft Tissue Mobility Assessment Atrophy of R Rhomboid Minor, Upper Rhomboid Major, Infraspinatus PT-OP-H Neuro Start: 02/03/24 07:30 Freq: Status: Active Protocol: Document 02/03/24 09:02 LRN (Rec: 02/03/24 10:37 LRN [id number]) Sensation Evaluation Gross Sensation Gross Sensation WNL Comments Summary Comments Tingly neuropathy in the plantar aspect of bilateral feet. Deep Tendon Reflex & Clonus Assessment Deep Tendon Reflex Right Tricep Deep Tendon Reflex 0 Absent Left Tricep Deep Tendon Reflex 2+ Normal Right Bicep Deep Tendon Reflex 1+ Diminished Left Bicep Deep Tendon Reflex 2+ Normal PT-OP-J Posture/Palpation/Skin Start: 02/03/24 07:30 Freq: Status: Active Protocol: Document 02/03/24 09:02 LRN (Rec: 02/03/24 10:37 LRN [id number]) Posture Evaluation Position Standing L-Spine Posture Shifted Left Scapula Posture (R) Rotated Down,(R) Depressed Arm Posture (L) Internally Rotated,(R) Internally Rotated Pelvis Posture Anteriorly Tilted,(R) Iliac Crest Superior Weight Distribution Balanced Comments Posture Comments Mild R shoulder high, dowagers hump, very mild scoliosis with upper apex on left @T6, lower on R @T8, pelvic anter tilt is slight, R leg in ER Palpation Assessment Location R Anterior chest Palpation Location R Pecs, Coracoid process, Anterior Scalenes, UT Palpation Details No Tenderness R anterior brachium Palpation Location Biceps and anterior GHJ capsule Palpation Details No tenderness PT-OP-K Range of Motion Start: 02/03/24 07:30 Freq: Status: Active Protocol: Document 02/03/24 09:02 LR (Rec: 02/03/24 10:37 [facility] [id number]) Cervical Spine Range of Motion Cervical Spine Active Degrees Testing Position Sitting Flexion 45 Extension 50 Rotation Left 30 Rotation Right 40 Lateral Flexion Left 10 Lateral Flexion Right 10 Comments No pain or discomfort Shoulder Goniometric Range of Motion Shoulder Right Passive Shoulder ROM WFL No Testing Position Supine Flexion 170 Abduction 90 External Rotation at 90 degrees 105 Abduction Internal Rotation 40 Left Passive Shoulder ROM WFL No Testing Position Supine Flexion 150 External Rotation at 90 degrees 70 Abduction Internal Rotation 60 Right Active Shoulder ROM WFL No Testing Position Sitting Flexion 104 Extension 15 Abduction 45 External Rotation at 0 degrees Abduction 45 Left Active Shoulder ROM WFL Yes Testing Position Sitting Flexion 147 Extension 45 Abduction 137 External Rotation at 0 degrees Abduction 45 PT-OP-L Special Tests Start: 02/03/24 10:37 Freq: Status: Active Protocol: Document 02/15/24 13:53 [facility] (Rec: 02/15/24 15:22 [facility] [id number]) Special Tests Shoulder Special Tests Biceps Load II Test Comments neg R Clunk Test Comments neg R speeds Comments pos minor pain [place] Test Comments positive more pain than speeds Empty Can Comments R mild inc pain PT-OP-M Strength Start: 02/03/24 07:30 Freq: Status: Active Protocol: Document 02/03/24 09:02 LR (Rec: 02/03/24 10:37 [facility] [id number]) Cervical Spine Strength Cervical Spine Manual Muscle Testing Testing Position Sitting Comments Strength is 5/5 and symmetrical. Shoulder Strength Shoulder Manual Muscle Testing Right Flexion 2 Poor Extension 2 Poor Abduction (C5) 2 Poor Adduction 2 Poor External Rotation 3 Fair Internal Rotation 5 Normal Horizontal Abduction 2 Poor Horizontal Adduction 2 Poor Comments Sitting: Strength is 5/5 ( including horiz AB/AD), except as indicated above (note horiz AB/AD is 5/5 in supine) Left Comments Sitting: Generally 5/5 strength PT-OP-Q Treatments Start: 02/03/24 07:30 Freq: Status: Active Protocol: Document 02/15/24 13:53 [facility] (Rec: 02/15/24 15:22 [facility] [id number]) Therapeutic Exercises Supine Exercises flex Supine Exercise Name chest press to flex Side bilateral Reps/Minutes 10 Comments cues control Sidelying Exercises R Shoulder Trio Sidelying Exercise Name abd comfortable range, FF comfortable range, open book Side right Resistance 1# abd Equipment Used L SL Reps/Minutes 15 ea abd and open book, FF stop d/t pain Comments extra time & tactile cues for adduction & depression & UR scap mobility Sitting Exercises Neck stretches Sitting Exercise Name UT, LS, scalenes/SCM- review HEP /c HO Side right Equipment Used LUE gentle overpressure for improved stretch reported Reps/Minutes 30 SH each Comments time spent set up and proper form/direction pull Manual Therapy Treatment Consent Patient gave verbal consent for manual Yes treatment Soft Tissue Mobilization ant Body Location R pec major/minor Mobilization Type Rolling Intensity/Depth Moderate inferior Body Location R lat and teres w/flex Mobilization Type Sustained Pressure Intensity/Depth Moderate Body Position Supine superior Body Location R UT, scalenes, LS Mobilization Type Rolling Body Position Sidelying Comments w/ post dep Joint Mobilizations ribs Body Position Sidelying Comments external torsion rib 5, PA rib 1-3 and caudal ribs 1-3 c/r w /shoulder elevation GH Joint R post AC Joint ant clavicle c/r PT-OP-T Assessment and Plan Start: 02/03/24 07:30 Freq: Status: Active Protocol: Document 02/15/24 13:53 [facility] (Rec: 02/15/24 15:22 [facility] [id number]) Physical Therapy Assessment Goals Three Impairment Decreased R shoulder strength (generally 2/5) Short Term Goal (STG) Pt will be able to lift her 11 # dog, and push with R arm while rolling in bed at night w/o pain. STG Duration 03/17/24 [facility] Goal (LTG) Improve R shoulder strength with pt able to return to playing pickleball w/tolerable pain. LTG Duration 04/28/24 Two Impairment R shoulder Pain with functional activities (UE QUICKDASH score - 47) Short Term Goal (STG) Improve R shoulder/scapular strength with pt able to stand and hold hands w/o R shoulder pain and reduce pain with pt able to lift the arm forward and out to the side with tolerable discomfort or improved UE QuickDASH score 39 or less. STG Duration 03/17/24 [employer] Representative Goal (LTG) Improve level of functional with pt able to do functional activities with tolerable discomfort or no pain: doing dishes, sweeping floor, dressing (putting top on overhead), night rolling in bed at night (pushing with R arm) & driving (turning to right). 02/10/24: ed use pillows for support RUE, spine and BLEs for alignment support. LTG Duration 04/28/24 progressing 02/10/24 One Impairment Pt lacks appropriate self care HEP. Short Term Goal (STG) Pt will be educated and will demonstrate proper scapulohumeral rhythm with R shoulder mvmt and best practice R shoulder positioning for nighttime sleep. 02/10/24: pt making gains in AROM L SL: FF 170*, ABD 145 * HABD (add DB next tx). STG Duration 03/17/24 progressing 02/10/24 [employer] Representative Goal (LTG) Pt will be independent and consistent with a self care HEP for R shoulder/scapular ROM/strengthening and mobility ex's. 02/10/24: added L SL R shld aBD, FF and HABD, seated neck stretches UT, LS, scalenes. LTG Duration 04/28/24 progressing 02/10/24 Assessment Summary Assessment Pt had much improved ROM after session. Neg for all labral testing except OBriens, but positive for empty can indicating more likely impingement syndrome d/t positive testing w/impingment tests at IE. She had much improved ROM w/less pain after manual today. Cues for exercsies for form and adjust to different positions as needed to dec pain Physical Therapy Plan Frequency and Duration Frequency of Treatment 2x/Week Duration of treatment (weeks) 12 Plan of Care Start Date 02/03/24 Plan of Care End Date 04/28/24 Next Visit Focus/Plan Next Note Type Treatment Note Next Visit Plan Next: Recheck UE DTRs if still indicated REview HEP: L SL AROM ABD, open book and supine flex, neck stretches POC: Therapeutic Ex ( strengthening/ROM), Therapeutic Activity ( nighttime positioning for comfort), manual therapy (STM/ JMT), Pt Education (HEP, Edema and pain mgmt).
--- NOTE | 2024-02-18 12:56 | PT.OTN ---
Current Diagnoses Other enthesopathies, not elsewhere classified (02/18/24) Physical Therapy Treatment Note PT-OP-A Visit Information Start: 02/03/24 07:30 Freq: Status: Active Protocol: Document 02/18/24 08:19 AB (Rec: 02/18/24 10:37 AB [id number]) Out-Patient Physical Therapy Visit Information Visit Information Visit Type Treatment Note Visit Start Time 08:19 Visit Stop Time 09:11 Visit Number (44/10 with eval) Number of MANUFACTURING ENGINEERING TECHNOLOGIST Visits 1 Evaluation Information Evaluation Date 02/03/24 PT-OP-B Current Condition Start: 02/03/24 07:30 Freq: Status: Active Protocol: Document 02/03/24 09:02 LRN (Rec: 02/03/24 10:37 LRN [id number]) Current Condition History of Current Condition Onset Date 3 months ago Current Complaints Pain w/mvmt in R anterior brachium and anterior chest. History of Current Condition R shoulder pain 3 months ago, thinks started due to playing pickle ball. Was on vacation the last 2 weeks on cruise to [place], and hasn't been playing pickleball, but was moving her suitcase around so her condition is worse. States she has tried a topical cream (thinks it is an anti- inflammatory), that was not helpful. Pt is R handed. Prior Treatments and Tests None Treatment Goals Patient/Caregiver Goals Pt goals: - Eliminate pain to not have to avoid using the arm with lifting (especially out to side), and in static standing holding hands together. - No pain with functional activities: dishes, lifting dog (11#), sweeping floor, dressing (putting top on overhead), night rolling in bed at night (pushing with R arm) & driving (turning to right). - Be able to return to playing pickleball w/o pain. - Pt consistent in an independent in a self care HEP . Prior Functional Status Baseline Function- Recreation/Hobbies Plays pickle ball 2x/week. Current Functional Impairments (Reported) Functional Limitations- Recreation/ Hasn't played pickleball for 2 Hobbies weeks since on vacation. Supposed to return today. Personal Factors Other Personal Factors That May Effect History of back pain. Therapy/Recovery Pt plays pickleball consistently. PT-OP-C Subjective Start: 02/03/24 07:30 Freq: Status: Active Protocol: Document 02/18/24 08:19 AB (Rec: 02/18/24 10:37 AB [id number]) OP-PT Subjective Patient Comments Patient Comments Patient reports she is the same, has been doing her exercises. Patient rates pain 5/10 with AROM. AROM right shoulder flexion 145 deg start of session. PT-OP-E Functional Tests Start: 02/03/24 07:30 Freq: Status: Active Protocol: Document 02/03/24 09:02 LRN (Rec: 02/03/24 10:37 LRN [id number]) Functional Tests Apley's Scratch Test Action 1- Left Below inferior angle of opp scapula Action 1- Right Acromion process at UT angle Action 2- Left T2-T3 Action 2- Right Mid posterior head Action 3- Left T6 Action 3- Right T11 PT-OP-F Manual Assessment Start: 02/03/24 07:30 Freq: Status: Active Protocol: Document 02/03/24 09:02 LRN (Rec: 02/03/24 10:37 LRN [id number]) Manual Assessments Soft Tissue Assessment Soft Tissue Mobility Assessment Atrophy of R Rhomboid Minor, Upper Rhomboid Major, Infraspinatus PT-OP-H Neuro Start: 02/03/24 07:30 Freq: Status: Active Protocol: Document 02/03/24 09:02 LRN (Rec: 02/03/24 10:37 LRN [id number]) Sensation Evaluation Gross Sensation Gross Sensation WNL Comments Summary Comments Tingly neuropathy in the plantar aspect of bilateral feet. Deep Tendon Reflex & Clonus Assessment Deep Tendon Reflex Right Tricep Deep Tendon Reflex 0 Absent Left Tricep Deep Tendon Reflex 2+ Normal Right Bicep Deep Tendon Reflex 1+ Diminished Left Bicep Deep Tendon Reflex 2+ Normal PT-OP-J Posture/Palpation/Skin Start: 02/03/24 07:30 Freq: Status: Active Protocol: Document 02/03/24 09:02 LRN (Rec: 02/03/24 10:37 LRN [id number]) Posture Evaluation Position Standing L-Spine Posture Shifted Left Scapula Posture (R) Rotated Down,(R) Depressed Arm Posture (L) Internally Rotated,(R) Internally Rotated Pelvis Posture Anteriorly Tilted,(R) Iliac Crest Superior Weight Distribution Balanced Comments Posture Comments Mild R shoulder high, dowagers hump, very mild scoliosis with upper apex on left @T6, lower on R @T8, pelvic anter tilt is slight, R leg in ER Palpation Assessment Location R Anterior chest Palpation Location R Pecs, Coracoid process, Anterior Scalenes, UT Palpation Details No Tenderness R anterior brachium Palpation Location Biceps and anterior GHJ capsule Palpation Details No tenderness PT-OP-K Range of Motion Start: 02/03/24 07:30 Freq: Status: Active Protocol: Document 02/03/24 09:02 LR (Rec: 02/03/24 10:37 [facility] [id number]) Cervical Spine Range of Motion Cervical Spine Active Degrees Testing Position Sitting Flexion 45 Extension 50 Rotation Left 30 Rotation Right 40 Lateral Flexion Left 10 Lateral Flexion Right 10 Comments No pain or discomfort Shoulder Goniometric Range of Motion Shoulder Right Passive Shoulder ROM WFL No Testing Position Supine Flexion 170 Abduction 90 External Rotation at 90 degrees 105 Abduction Internal Rotation 40 Left Passive Shoulder ROM WFL No Testing Position Supine Flexion 150 External Rotation at 90 degrees 70 Abduction Internal Rotation 60 Right Active Shoulder ROM WFL No Testing Position Sitting Flexion 104 Extension 15 Abduction 45 External Rotation at 0 degrees Abduction 45 Left Active Shoulder ROM WFL Yes Testing Position Sitting Flexion 147 Extension 45 Abduction 137 External Rotation at 0 degrees Abduction 45 PT-OP-L Special Tests Start: 02/03/24 10:37 Freq: Status: Active Protocol: Document 02/15/24 13:53 [facility] (Rec: 02/15/24 15:22 [facility] [id number]) Special Tests Shoulder Special Tests Biceps Load II Test Comments neg R Clunk Test Comments neg R speeds Comments pos minor pain Kerr Test Comments positive more pain than speeds Empty Can Comments R mild inc pain PT-OP-M Strength Start: 02/03/24 07:30 Freq: Status: Active Protocol: Document 02/03/24 09:02 LR (Rec: 02/03/24 10:37 [facility] [id number]) Cervical Spine Strength Cervical Spine Manual Muscle Testing Testing Position Sitting Comments Strength is 5/5 and symmetrical. Shoulder Strength Shoulder Manual Muscle Testing Right Flexion 2 Poor Extension 2 Poor Abduction (C5) 2 Poor Adduction 2 Poor External Rotation 3 Fair Internal Rotation 5 Normal Horizontal Abduction 2 Poor Horizontal Adduction 2 Poor Comments Sitting: Strength is 5/5 ( including horiz AB/AD), except as indicated above (note horiz AB/AD is 5/5 in supine) Left Comments Sitting: Generally 5/5 strength PT-OP-Q Treatments Start: 02/03/24 07:30 Freq: Status: Active Protocol: Document 02/18/24 08:19 AB (Rec: 02/18/24 10:37 AB [id number]) Therapeutic Exercises Sidelying Exercises R Shoulder Trio Sidelying Exercise Name open book ( bilateral for open book), FF and abd Side right Equipment Used L SL Reps/Minutes open book X10 for 5 breath X10 FF and abd Comments VC for LE position open book and breathing Sitting Exercises Neck stretches Sitting Exercise Name UT, LS, scalenes/SCM- review HEP /c HO Side bilateral Equipment Used LUE gentle overpressure for improved stretch reported Reps/Minutes 30 SH each Comments verbal cues Standing Exercises Push up plus on wall Side bilateral Reps/Minutes X10 Comments Verbal cues for avoiding UT activation shoulder ER and IR Standing Exercise Name Isometric reactive Side right Resistance level one band Equipment Used HEP Reps/Minutes X10 each Comments Verbal and visual cues Manual Therapy Treatment Soft Tissue Mobilization biceps Body Location right Mobilization Type Cross-Friction,Rolling Intensity/Depth Moderate Body Position Hooklying post Body Location post cuff, lat Rhomberg Right Mobilization Type Cross-Friction,Rolling, Sustained Pressure Intensity/Depth Moderate Body Position Sidelying ant Body Location R pec major/minor Mobilization Type Rolling Intensity/Depth Moderate Joint Mobilizations GH Joint right Grade III Body Position Hooklying Reps/Duration 3X10 R scapulothoracic Direction depression and Adduction Grade III Body Position Sidelying Reps/Duration X10 each PT-OP-T Assessment and Plan Start: 02/03/24 07:30 Freq: Status: Active Protocol: Document 02/18/24 08:19 AB (Rec: 02/18/24 10:37 AB [id number]) Physical Therapy Assessment Goals Three Impairment Decreased R shoulder strength (generally 2/5) Short Term Goal (STG) Pt will be able to lift her 11 # dog, and push with R arm while rolling in bed at night w/o pain. STG Duration 03/17/24 [place] Goal (LTG) Improve R shoulder strength with pt able to return to playing pickleball w/tolerable pain. LTG Duration 04/28/24 Two Impairment R shoulder Pain with functional activities (UE QUICKDASH score - 47) Short Term Goal (STG) Improve R shoulder/scapular strength with pt able to stand and hold hands w/o R shoulder pain and reduce pain with pt able to lift the arm forward and out to the side with tolerable discomfort or improved UE QuickDASH score 39 or less. STG Duration 03/17/24 [place] [facility] Goal (LTG) Improve level of functional with pt able to do functional activities with tolerable discomfort or no pain: doing dishes, sweeping floor, dressing (putting top on overhead), night rolling in bed at night (pushing with R arm) & driving (turning to right). 02/10/24: ed use pillows for support RUE, spine and BLEs for alignment support. LTG Duration 04/28/24 progressing 02/10/24 One Impairment Pt lacks appropriate self care HEP. Short Term Goal (STG) Pt will be educated and will demonstrate proper scapulohumeral rhythm with R shoulder mvmt and best practice R shoulder positioning for nighttime sleep. 02/10/24: pt making gains in AROM L SL: FF 170*, ABD 145 * HABD (add DB next tx). STG Duration 03/17/24 progressing 02/10/24 [place] [facility] Goal (LTG) Pt will be independent and consistent with a self care HEP for R shoulder/scapular ROM/strengthening and mobility ex's. 02/10/24: added L SL R shld aBD, FF and HABD, seated neck stretches UT, LS, scalenes. 02/18/2024 Isometric reactive shoulder ER and IR added to HEP LTG Duration 04/28/24 progressing 02/10/24 Assessment Summary Assessment AROM right shoulder flexion 156 deg end of session rating pain 1/10. Good lon to isometric reactive. Physical Therapy Plan Frequency and Duration Frequency of Treatment 2x/Week Duration of treatment (weeks) 12 Plan of Care Start Date 02/03/24 Plan of Care End Date 04/28/24 Next Visit Focus/Plan Next Note Type Treatment Note Next Visit Plan Next: Recheck UE DTRs if still indicated REview HEP: Assess lon to isometric reactives POC: Therapeutic Ex ( strengthening/ROM) possibly wall slide with lift off and lower without use of wall, Therapeutic Activity ( nighttime positioning for comfort), manual therapy (STM/ JMT), Pt Education (HEP, Edema and pain mgmt).
--- NOTE | 2024-03-01 10:47 | PT.OTN ---
Current Diagnoses Other enthesopathies, not elsewhere classified (03/01/24) Physical Therapy Treatment Note PT-OP-A Visit Information Start: 02/03/24 07:30 Freq: Status: Active Protocol: Document 03/01/24 08:11 AB (Rec: 03/01/24 10:46 AB [id number]) Out-Patient Physical Therapy Visit Information Visit Information Visit Type Treatment Note Visit Start Time 09:49 Visit Stop Time 10:31 Visit Number 5 (5 with eval) Number of SENIOR NETWORK SECURITY ENGINEER Visits 2 Evaluation Information Evaluation Date 02/03/24 PT-OP-B Current Condition Start: 02/03/24 07:30 Freq: Status: Active Protocol: Document 02/03/24 09:02 LRN (Rec: 02/03/24 10:37 LRN [id number]) Current Condition History of Current Condition Onset Date 3 months ago Current Complaints Pain w/mvmt in R anterior brachium and anterior chest. History of Current Condition R shoulder pain 3 months ago, thinks started due to playing pickle ball. Was on vacation the last 2 weeks on cruise to [place], and hasn't been playing pickleball, but was moving her suitcase around so her condition is worse. States she has tried a topical cream (thinks it is an anti- inflammatory), that was not helpful. Pt is R handed. Prior Treatments and Tests None Treatment Goals Patient/Caregiver Goals Pt goals: - Eliminate pain to not have to avoid using the arm with lifting (especially out to side), and in static standing holding hands together. - No pain with functional activities: dishes, lifting dog (11#), sweeping floor, dressing (putting top on overhead), night rolling in bed at night (pushing with R arm) & driving (turning to right). - Be able to return to playing pickleball w/o pain. - Pt consistent in an independent in a self care HEP . Prior Functional Status Baseline Function- Recreation/Hobbies Plays pickle ball 2x/week. Current Functional Impairments (Reported) Functional Limitations- Recreation/ Hasn't played pickleball for 2 Hobbies weeks since on vacation. Supposed to return today. Personal Factors Other Personal Factors That May Effect History of back pain. Therapy/Recovery Pt plays pickleball consistently. PT-OP-C Subjective Start: 02/03/24 07:30 Freq: Status: Active Protocol: Document 03/01/24 08:11 AB (Rec: 03/01/24 10:46 AB [id number]) OP-PT Subjective Patient Comments Patient Comments Patient reports she quit doing the isometics causes spasms, she had do go to the doctor for muscle relaxers, reports she did more than was recommended, thinks she did 20 on each side. Patient comments back is bothering now 4/10 left LS area. Patient reports arm is a little better . AROM 149 deg right shoulder flexion, no pain with AROM flex raising or lowering, rates pain at rest or with small movements UE at side 2/ 10. PT-OP-E Functional Tests Start: 02/03/24 07:30 Freq: Status: Active Protocol: Document 02/03/24 09:02 LRN (Rec: 02/03/24 10:37 LRN [id number]) Functional Tests Apley's Scratch Test Action 1- Left Below inferior angle of opp scapula Action 1- Right Acromion process at UT angle Action 2- Left T2-T3 Action 2- Right Mid posterior head Action 3- Left T6 Action 3- Right T11 PT-OP-F Manual Assessment Start: 02/03/24 07:30 Freq: Status: Active Protocol: Document 02/03/24 09:02 LRN (Rec: 02/03/24 10:37 LRN [id number]) Manual Assessments Soft Tissue Assessment Soft Tissue Mobility Assessment Atrophy of R Rhomboid Minor, Upper Rhomboid Major, Infraspinatus PT-OP-H Neuro Start: 02/03/24 07:30 Freq: Status: Active Protocol: Document 02/03/24 09:02 LRN (Rec: 02/03/24 10:37 LRN [id number]) Sensation Evaluation Gross Sensation Gross Sensation WNL Comments Summary Comments Tingly neuropathy in the plantar aspect of bilateral feet. Deep Tendon Reflex & Clonus Assessment Deep Tendon Reflex Right Tricep Deep Tendon Reflex 0 Absent Left Tricep Deep Tendon Reflex 2+ Normal Right Bicep Deep Tendon Reflex 1+ Diminished Left Bicep Deep Tendon Reflex 2+ Normal PT-OP-J Posture/Palpation/Skin Start: 02/03/24 07:30 Freq: Status: Active Protocol: Document 02/03/24 09:02 LRN (Rec: 02/03/24 10:37 LRN [id number]) Posture Evaluation Position Standing L-Spine Posture Shifted Left Scapula Posture (R) Rotated Down,(R) Depressed Arm Posture (L) Internally Rotated,(R) Internally Rotated Pelvis Posture Anteriorly Tilted,(R) Iliac Crest Superior Weight Distribution Balanced Comments Posture Comments Mild R shoulder high, dowagers hump, very mild scoliosis with upper apex on left @T6, lower on R @T8, pelvic anter tilt is slight, R leg in ER Palpation Assessment Location R Anterior chest Palpation Location R Pecs, Coracoid process, Anterior Scalenes, UT Palpation Details No Tenderness R anterior brachium Palpation Location Biceps and anterior GHJ capsule Palpation Details No tenderness PT-OP-K Range of Motion Start: 02/03/24 07:30 Freq: Status: Active Protocol: Document 02/03/24 09:02 [facility] (Rec: 02/03/24 10:37 [facility] [id number]) Cervical Spine Range of Motion Cervical Spine Active Degrees Testing Position Sitting Flexion 45 Extension 50 Rotation Left 30 Rotation Right 40 Lateral Flexion Left 10 Lateral Flexion Right 10 Comments No pain or discomfort Shoulder Goniometric Range of Motion Shoulder Right Passive Shoulder ROM WFL No Testing Position Supine Flexion 170 Abduction 90 External Rotation at 90 degrees 105 Abduction Internal Rotation 40 Left Passive Shoulder ROM WFL No Testing Position Supine Flexion 150 External Rotation at 90 degrees 70 Abduction Internal Rotation 60 Right Active Shoulder ROM WFL No Testing Position Sitting Flexion 104 Extension 15 Abduction 45 External Rotation at 0 degrees Abduction 45 Left Active Shoulder ROM WFL Yes Testing Position Sitting Flexion 147 Extension 45 Abduction 137 External Rotation at 0 degrees Abduction 45 PT-OP-L Special Tests Start: 02/03/24 10:37 Freq: Status: Active Protocol: Document 02/15/24 13:53 [facility] (Rec: 02/15/24 15:22 [facility] [id number]) Special Tests Shoulder Special Tests Biceps Load II Test Comments neg R Clunk Test Comments neg R speeds Comments pos minor pain [place] Test Comments positive more pain than speeds Empty Can Comments R mild inc pain PT-OP-M Strength Start: 02/03/24 07:30 Freq: Status: Active Protocol: Document 02/03/24 09:02 [facility] (Rec: 02/03/24 10:37 [facility] [id number]) Cervical Spine Strength Cervical Spine Manual Muscle Testing Testing Position Sitting Comments Strength is 5/5 and symmetrical. Shoulder Strength Shoulder Manual Muscle Testing Right Flexion 2 Poor Extension 2 Poor Abduction (C5) 2 Poor Adduction 2 Poor External Rotation 3 Fair Internal Rotation 5 Normal Horizontal Abduction 2 Poor Horizontal Adduction 2 Poor Comments Sitting: Strength is 5/5 ( including horiz AB/AD), except as indicated above (note horiz AB/AD is 5/5 in supine) Left Comments Sitting: Generally 5/5 strength PT-OP-Q Treatments Start: 02/03/24 07:30 Freq: Status: Active Protocol: Document 03/01/24 08:11 AB (Rec: 03/01/24 10:46 AB [id number]) Therapeutic Exercises Supine Exercises mini band Supine Exercise Name shoulder flexion with ER with band Side bilateral Resistance level one band Reps/Minutes X10 Comments reports pain at X 6 post VC to stop if pain occurs, Verbal and visual cues Sidelying Exercises R Shoulder Trio Sidelying Exercise Name open book ( bilateral for open book), FF and abd Side right Equipment Used L SL Reps/Minutes open book X10 X10 FF X 1 X10 w/ fac then X5,and abd X10 Comments Post manual for neuro re ed Standing Exercises shoulder ER and IR Standing Exercise Name Isometric reactive Side right Resistance level one band Equipment Used HEP Reps/Minutes X5 each Comments Verbal and visual cues Manual Therapy Treatment Soft Tissue Mobilization post Body Location post cuff, lat Rhomberg Right Mobilization Type Cross-Friction,Rolling, Sustained Pressure Intensity/Depth Moderate Body Position Sidelying ant Body Location R pec major/minor Mobilization Type Rolling Intensity/Depth Moderate Joint Mobilizations ribs Body Position Sidelying Comments 1-3 in sidelying caudal II GH Joint right Grade III Body Position Hooklying Reps/Duration 3X10 AC Joint ant clavicle inf R Grade II Body Position Sidelying Comments trial with flex not lon R scapulothoracic Direction depression and Adduction Grade III Body Position Sidelying Reps/Duration X10 each PT-OP-T Assessment and Plan Start: 02/03/24 07:30 Freq: Status: Active Protocol: Document 03/01/24 08:11 AB (Rec: 03/01/24 10:46 AB [id number]) Physical Therapy Assessment Goals Three Impairment Decreased R shoulder strength (generally 2/5) Short Term Goal (STG) Pt will be able to lift her 11 # dog, and push with R arm while rolling in bed at night w/o pain. STG Duration 03/17/24 [facility] Goal (LTG) Improve R shoulder strength with pt able to return to playing pickleball w/tolerable pain. LTG Duration 04/28/24 Two Impairment R shoulder Pain with functional activities (UE QUICKDASH score - 47) Short Term Goal (STG) Improve R shoulder/scapular strength with pt able to stand and hold hands w/o R shoulder pain and reduce pain with pt able to lift the arm forward and out to the side with tolerable discomfort or improved UE QuickDASH score 39 or less. STG Duration 03/17/24 [facility] Goal (LTG) Improve level of functional with pt able to do functional activities with tolerable discomfort or no pain: doing dishes, sweeping floor, dressing (putting top on overhead), night rolling in bed at night (pushing with R arm) & driving (turning to right). 02/10/24: ed use pillows for support RUE, spine and BLEs for alignment support. LTG Duration 04/28/24 progressing 02/10/24 One Impairment Pt lacks appropriate self care HEP. Short Term Goal (STG) Pt will be educated and will demonstrate proper scapulohumeral rhythm with R shoulder mvmt and best practice R shoulder positioning for nighttime sleep. 02/10/24: pt making gains in AROM L SL: FF 170*, ABD 145 * HABD (add DB next tx). 03/01/2024 AROM right shoulder flexion 164 deg standing with reports of no pain lowering UE . STG Duration 03/17/24 progressing 02/10/24 [employer] Tender Goal (LTG) Pt will be independent and consistent with a self care HEP for R shoulder/scapular ROM/strengthening and mobility ex's. 02/10/24: added L SL R shld aBD, FF and HABD, seated neck stretches UT, LS, scalenes. 02/18/2024 Isometric reactive shoulder ER and IR added to HEP LTG Duration 04/28/24 progressing 02/10/24 Assessment Summary Assessment AROM right shoulder 164 deg end of session reporting no pain to lowering shoulder. Into session with reports of Thoracic muscle spasms post increasing reps of isomet reactive at home independently at home. Declined review of neck stretches. Physical Therapy Plan Frequency and Duration Frequency of Treatment 2x/Week Duration of treatment (weeks) 12 Plan of Care Start Date 02/03/24 Plan of Care End Date 01/31/25 Next Visit Focus/Plan Next Note Type Treatment Note Next Visit Plan Next: Recheck UE DTRs if still indicated REview HEP: Isometric reactive , assess lon to isometric reactive POC: Therapeutic Ex ( strengthening/ROM)reasses lon to mini band supine, trial of bent row/Y in counter plank or over ball possibly wall slide with lift off and lower without use of wall with scapular facilitation, Therapeutic Activity ( nighttime positioning for comfort), manual therapy (STM/ JMT), Pt Education (HEP, Edema and pain mgmt).
--- NOTE | 2024-03-07 15:34 | PT.OTN ---
Current Diagnoses Other enthesopathies, not elsewhere classified (03/07/24) Physical Therapy Treatment Note PT-OP-A Visit Information Start: 02/03/24 07:30 Freq: Status: Active Protocol: Document 03/07/24 14:28 AB (Rec: 03/07/24 15:33 AB [id number]) Out-Patient Physical Therapy Visit Information Visit Information Visit Type Treatment Note Visit Start Time 14:34 Visit Stop Time 15:18 Visit Number 6 (09/05 with eval) Number of [employer]NER Visits 3 Evaluation Information Evaluation Date 02/03/24 PT-OP-B Current Condition Start: 02/03/24 07:30 Freq: Status: Active Protocol: Document 02/03/24 09:02 LRN (Rec: 02/03/24 10:37 LRN [id number]) Current Condition History of Current Condition Onset Date 3 months ago Current Complaints Pain w/mvmt in R anterior brachium and anterior chest. History of Current Condition R shoulder pain 3 months ago, thinks started due to playing pickle ball. Was on vacation the last 2 weeks on cruise to [place], and hasn't been playing pickleball, but was moving her suitcase around so her condition is worse. States she has tried a topical cream (thinks it is an anti- inflammatory), that was not helpful. Pt is R handed. Prior Treatments and Tests None Treatment Goals Patient/Caregiver Goals Pt goals: - Eliminate pain to not have to avoid using the arm with lifting (especially out to side), and in static standing holding hands together. - No pain with functional activities: dishes, lifting dog (11#), sweeping floor, dressing (putting top on overhead), night rolling in bed at night (pushing with R arm) & driving (turning to right). - Be able to return to playing pickleball w/o pain. - Pt consistent in an independent in a self care HEP . Prior Functional Status Baseline Function- Recreation/Hobbies Plays pickle ball 2x/week. Current Functional Impairments (Reported) Functional Limitations- Recreation/ Hasn't played pickleball for 2 Hobbies weeks since on vacation. Supposed to return today. Personal Factors Other Personal Factors That May Effect History of back pain. Therapy/Recovery Pt plays pickleball consistently. PT-OP-C Subjective Start: 02/03/24 07:30 Freq: Status: Active Protocol: Document 03/07/24 14:28 AB (Rec: 03/07/24 15:33 AB [id number]) OP-PT Subjective Patient Comments Patient Comments Patient reports the shoulder is a little better. AROM right shoulder flexion 145 deg start of session 2 pain lowering the UE. PT-OP-E Functional Tests Start: 02/03/24 07:30 Freq: Status: Active Protocol: Document 02/03/24 09:02 LRN (Rec: 02/03/24 10:37 LRN [id number]) Functional Tests Apley's Scratch Test Action 1- Left Below inferior angle of opp scapula Action 1- Right Acromion process at UT angle Action 2- Left T2-T3 Action 2- Right Mid posterior head Action 3- Left T6 Action 3- Right T11 PT-OP-F Manual Assessment Start: 02/03/24 07:30 Freq: Status: Active Protocol: Document 02/03/24 09:02 LRN (Rec: 02/03/24 10:37 LRN [id number]) Manual Assessments Soft Tissue Assessment Soft Tissue Mobility Assessment Atrophy of R Rhomboid Minor, Upper Rhomboid Major, Infraspinatus PT-OP-H Neuro Start: 02/03/24 07:30 Freq: Status: Active Protocol: Document 02/03/24 09:02 LRN (Rec: 02/03/24 10:37 LRN [id number]) Sensation Evaluation Gross Sensation Gross Sensation WNL Comments Summary Comments Tingly neuropathy in the plantar aspect of bilateral feet. Deep Tendon Reflex & Clonus Assessment Deep Tendon Reflex Right Tricep Deep Tendon Reflex 0 Absent Left Tricep Deep Tendon Reflex 2+ Normal Right Bicep Deep Tendon Reflex 1+ Diminished Left Bicep Deep Tendon Reflex 2+ Normal PT-OP-J Posture/Palpation/Skin Start: 02/03/24 07:30 Freq: Status: Active Protocol: Document 02/03/24 09:02 LRN (Rec: 02/03/24 10:37 LRN [id number]) Posture Evaluation Position Standing L-Spine Posture Shifted Left Scapula Posture (R) Rotated Down,(R) Depressed Arm Posture (L) Internally Rotated,(R) Internally Rotated Pelvis Posture Anteriorly Tilted,(R) Iliac Crest Superior Weight Distribution Balanced Comments Posture Comments Mild R shoulder high, dowagers hump, very mild scoliosis with upper apex on left @T6, lower on R @T8, pelvic anter tilt is slight, R leg in ER Palpation Assessment Location R Anterior chest Palpation Location R [place], Coracoid process, Anterior Scalenes, UT Palpation Details No Tenderness R anterior brachium Palpation Location Biceps and anterior GHJ capsule Palpation Details No tenderness PT-OP-K Range of Motion Start: 02/03/24 07:30 Freq: Status: Active Protocol: Document 02/03/24 09:02 LR (Rec: 02/03/24 10:37 [facility] [id number]) Cervical Spine Range of Motion Cervical Spine Active Degrees Testing Position Sitting Flexion 45 Extension 50 Rotation Left 30 Rotation Right 40 Lateral Flexion Left 10 Lateral Flexion Right 10 Comments No pain or discomfort Shoulder Goniometric Range of Motion Shoulder Right Passive Shoulder ROM WFL No Testing Position Supine Flexion 170 Abduction 90 External Rotation at 90 degrees 105 Abduction Internal Rotation 40 Left Passive Shoulder ROM WFL No Testing Position Supine Flexion 150 External Rotation at 90 degrees 70 Abduction Internal Rotation 60 Right Active Shoulder ROM WFL No Testing Position Sitting Flexion 104 Extension 15 Abduction 45 External Rotation at 0 degrees Abduction 45 Left Active Shoulder ROM WFL Yes Testing Position Sitting Flexion 147 Extension 45 Abduction 137 External Rotation at 0 degrees Abduction 45 PT-OP-L Special Tests Start: 02/03/24 10:37 Freq: Status: Active Protocol: Document 02/15/24 13:53 [facility] (Rec: 02/15/24 15:22 [facility] [id number]) Special Tests Shoulder Special Tests Biceps Load II Test Comments neg R Clunk Test Comments neg R speeds Comments pos minor pain [place] Test Comments positive more pain than speeds Empty Can Comments R mild inc pain PT-OP-M Strength Start: 02/03/24 07:30 Freq: Status: Active Protocol: Document 02/03/24 09:02 LR (Rec: 02/03/24 10:37 [facility] [id number]) Cervical Spine Strength Cervical Spine Manual Muscle Testing Testing Position Sitting Comments Strength is 5/5 and symmetrical. Shoulder Strength Shoulder Manual Muscle Testing Right Flexion 2 Poor Extension 2 Poor Abduction (C5) 2 Poor Adduction 2 Poor External Rotation 3 Fair Internal Rotation 5 Normal Horizontal Abduction 2 Poor Horizontal Adduction 2 Poor Comments Sitting: Strength is 5/5 ( including horiz AB/AD), except as indicated above (note horiz AB/AD is 5/5 in supine) Left Comments Sitting: Generally 5/5 strength PT-OP-Q Treatments Start: 02/03/24 07:30 Freq: Status: Active Protocol: Document 03/07/24 14:28 AB (Rec: 03/07/24 15:33 AB [id number]) Therapeutic Exercises Supine Exercises mini band Supine Exercise Name shoulder flexion with ER with band Side bilateral Resistance level one band Reps/Minutes X10 flex Supine Exercise Name AROM Side bilateral Reps/Minutes X3 Comments cues control Sitting Exercises short sit to upright Side bilateral Reps/Minutes X10 Comments verbal cues Standing Exercises wall slide flexion Standing Exercise Name with lift off and lower without use of wall Side bilateral Equipment Used HEP Reps/Minutes X6 Comments verbal and visual cues lower trap lift in counter plank Standing Exercise Name shoulder flexion/lower trap lift Side bilateral Equipment Used HEP Reps/Minutes X10 Comments verbal and visual cues shoulder ER and IR Standing Exercise Name Isometric reactive Side right Resistance level one band Equipment Used HEP Reps/Minutes X10 each Comments Verbal and visual cues Manual Therapy Treatment Soft Tissue Mobilization biceps Body Location right Mobilization Type Cross-Friction,Rolling Intensity/Depth Moderate Body Position Hooklying post Body Location post cuff, lat Rhomberg Right Mobilization Type Cross-Friction,Rolling, Sustained Pressure Intensity/Depth Moderate Body Position Sidelying ant Body Location R pec major/minor Mobilization Type Rolling Intensity/Depth Moderate Joint Mobilizations ribs Joint R Direction caudal Grade II Body Position Sitting Comments 1 GH Joint right Grade III Body Position Hooklying Reps/Duration 3X10 AC Joint ant clavicle inf R Grade II Body Position Sidelying Comments trial with flex not lon R scapulothoracic Direction depression and Adduction Grade III Body Position Sidelying Reps/Duration X10 each PT-OP-T Assessment and Plan Start: 02/03/24 07:30 Freq: Status: Active Protocol: Document 03/07/24 14:28 AB (Rec: 03/07/24 15:33 AB [id number]) Physical Therapy Assessment Goals Three Impairment Decreased R shoulder strength (generally 2/5) Short Term Goal (STG) Pt will be able to lift her 11 # dog, and push with R arm while rolling in bed at night w/o pain. 03/07/2024 Alexy reports she is able to lift her dog with both arms with no increased pain, but rolling in bed still hurts. STG Duration 03/17/24 Affiliate Marketing Specialist Goal (LTG) Improve R shoulder strength with pt able to return to playing pickleball w/tolerable pain. 03/07/2024 Patient reports returning to pickle ball with pain level 3/10 which doesn't interfere with playing the game. LTG Duration 04/28/24 Two Impairment R shoulder Pain with functional activities (UE QUICKDASH score - 47) Short Term Goal (STG) Improve R shoulder/scapular strength with pt able to stand and hold hands w/o R shoulder pain and reduce pain with pt able to lift the arm forward and out to the side with tolerable discomfort or improved UE QuickDASH score 39 or less. 03/07/2024 reports pain with horizontal adduction persists. STG Duration 03/17/24 Correction Goal (LTG) Improve level of functional with pt able to do functional activities with tolerable discomfort or no pain: doing dishes, sweeping floor, dressing (putting top on overhead), night rolling in bed at night (pushing with R arm) & driving (turning to right). 02/10/24: ed use pillows for support RUE, spine and BLEs for alignment support. 03/07/1014 Patient reports sweeping and washing dishes are no longer painful, but vacuuming hurts and sometimes reaching high overhead for pillows is painful when lowering the UE LTG Duration 04/28/24 progressing 02/10/24 One Impairment Pt lacks appropriate self care HEP. Short Term Goal (STG) Pt will be educated and will demonstrate proper scapulohumeral rhythm with R shoulder mvmt and best practice R shoulder positioning for nighttime sleep. 02/10/24: pt making gains in AROM L SL: FF 170*, ABD 145 * HABD (add DB next tx). 03/01/2024 AROM right shoulder flexion 164 deg standing with reports of no pain lowering UE . STG Duration 03/17/24 progressing 02/10/24 Affiliate Marketing Specialist Goal (LTG) Pt will be independent and consistent with a self care HEP for R shoulder/scapular ROM/strengthening and mobility ex's. 02/10/24: added L SL R shld aBD, FF and HABD, seated neck stretches UT, LS, scalenes. 02/18/2024 Isometric reactive shoulder ER and IR added to HEP 03/07/2024 Patient reports performing HEP every other day . LTG Duration 04/28/24 progressing 02/10/24 Assessment Summary Assessment 155 deg AROM right shoulder flexion end of session with Kippy reports feeling really good end of session. End of session patient reports having a lot of exercises, discussed twice a day ex once a day on busy days. Physical Therapy Plan Frequency and Duration Frequency of Treatment 2x/Week Duration of treatment (weeks) 12 Plan of Care Start Date 02/03/24 Plan of Care End Date 04/28/24 Next Visit Focus/Plan Next Note Type Treatment Note Next Visit Plan Next: Recheck UE DTRs if still indicated REview HEP: condense HEP, progress to isotoninc IR and ER as able, possibly rhythmic oscillation POC: Therapeutic Ex ( strengthening/ROM) Therapeutic Activity (nighttime positioning for comfort), manual therapy (STM/JMT), Pt Education (HEP, Edema and pain mgmt).
--- NOTE | 2024-03-10 09:20 | PT-OP ANOTE ---
Per phone conversation, pt not aware of appt and apologizes for missing the appt. Pt reporting the treatment of massages helps to relieve the pain for a day or two, but returns the same. She feels no significant improvement, but has been told by others that her ROM has improved. Pt was notified of her next appt 04/14/23 and that she will be assessed at that time for need of further therapy or return to Dr. John Paul Schwab for further evaluation.
--- NOTE | 2024-03-14 16:35 | PT.OTN ---
Current Diagnoses Other enthesopathies, not elsewhere classified (03/14/24) Physical Therapy Treatment Note PT-OP-A Visit Information Start: 02/03/24 07:30 Freq: Status: Active Protocol: Document 03/14/24 10:47 LRN (Rec: 03/14/24 11:32 LRN [id number]) Out-Patient Physical Therapy Visit Information Visit Information Visit Type Progress Note Visit Start Time 10:47 Visit Stop Time 11:33 Visit Number 7 (10/05 with eval) Evaluation Information Evaluation Date 02/03/24 Precautions Precautions Neuropathy of nikunj feet. PT-OP-B Current Condition Start: 02/03/24 07:30 Freq: Status: Active Protocol: Document 02/03/24 09:02 LRN (Rec: 02/03/24 10:37 LRN [id number]) Current Condition History of Current Condition Onset Date 3 months ago Current Complaints Pain w/mvmt in R anterior brachium and anterior chest. History of Current Condition R shoulder pain 3 months ago, thinks started due to playing pickle ball. Was on vacation the last 2 weeks on cruise to [place], and hasn't been playing pickleball, but was moving her suitcase around so her condition is worse. States she has tried a topical cream (thinks it is an anti- inflammatory), that was not helpful. Pt is R handed. Prior Treatments and Tests None Treatment Goals Patient/Caregiver Goals Pt goals: - Eliminate pain to not have to avoid using the arm with lifting (especially out to side), and in static standing holding hands together. - No pain with functional activities: dishes, lifting dog (11#), sweeping floor, dressing (putting top on overhead), night rolling in bed at night (pushing with R arm) & driving (turning to right). - Be able to return to playing pickleball w/o pain. - Pt consistent in an independent in a self care HEP . Prior Functional Status Baseline Function- Recreation/Hobbies Plays pickle ball 2x/week. Current Functional Impairments (Reported) Functional Limitations- Recreation/ Hasn't played pickleball for 2 Hobbies weeks since on vacation. Supposed to return today. Personal Factors Other Personal Factors That May Effect History of back pain. Therapy/Recovery Pt plays pickleball consistently. PT-OP-C Subjective Start: 02/03/24 07:30 Freq: Status: Active Protocol: Document 03/14/24 10:47 LRN (Rec: 03/14/24 11:32 LRN [id number]) OP-PT Subjective Patient Comments Patient Comments States her R shoulder is feeling better and thinks she can discharge from therapy. She feels better after playing pickle ball. Has been told she needs to strengthen her shoulder. Can lift her dog. In bed is when her R shoulder bothers her the most. Rolling around in bed hurts but not as severe as when first came in. Patient Questionnaires Quick Dash- Upper Extremity Quick Dash UE Score 27.27 Quick Dash UE Impairment 20 to 39% Impaired (Score 20- 39) OP-PT Pain Assessment Location R shoulder Pain Location Details Anterior shoulder Intensity 6 Scale Used Numeric (0 - 10) PT-OP-E Functional Tests Start: 02/03/24 07:30 Freq: Status: Active Protocol: Document 02/03/24 09:02 LRN (Rec: 02/03/24 10:37 LRN [id number]) Functional Tests Apley's Scratch Test Action 1- Left Below inferior angle of opp scapula Action 1- Right Acromion process at UT angle Action 2- Left T2-T3 Action 2- Right Mid posterior head Action 3- Left T6 Action 3- Right T11 PT-OP-F Manual Assessment Start: 02/03/24 07:30 Freq: Status: Active Protocol: Document 02/03/24 09:02 LRN (Rec: 02/03/24 10:37 LRN [id number]) Manual Assessments Soft Tissue Assessment Soft Tissue Mobility Assessment Atrophy of R Rhomboid Minor, Upper Rhomboid Major, Infraspinatus PT-OP-H Neuro Start: 02/03/24 07:30 Freq: Status: Active Protocol: Document 02/03/24 09:02 LRN (Rec: 02/03/24 10:37 LRN [id number]) Sensation Evaluation Gross Sensation Gross Sensation WNL Comments Summary Comments Tingly neuropathy in the plantar aspect of bilateral feet. Deep Tendon Reflex & Clonus Assessment Deep Tendon Reflex Right Tricep Deep Tendon Reflex 0 Absent Left Tricep Deep Tendon Reflex 2+ Normal Right Bicep Deep Tendon Reflex 1+ Diminished Left Bicep Deep Tendon Reflex 2+ Normal PT-OP-J Posture/Palpation/Skin Start: 02/03/24 07:30 Freq: Status: Active Protocol: Document 02/03/24 09:02 LRN (Rec: 02/03/24 10:37 LR [id number]) Posture Evaluation Position Standing L-Spine Posture Shifted Left Scapula Posture (R) Rotated Down,(R) Depressed Arm Posture (L) Internally Rotated,(R) Internally Rotated Pelvis Posture Anteriorly Tilted,(R) Iliac Crest Superior Weight Distribution Balanced Comments Posture Comments Mild R shoulder high, dowagers hump, very mild scoliosis with upper apex on left @T6, lower on R @T8, pelvic anter tilt is slight, R leg in ER Palpation Assessment Location R Anterior chest Palpation Location R [place], Coracoid process, Anterior Scalenes, UT Palpation Details No Tenderness R anterior brachium Palpation Location Biceps and anterior GHJ capsule Palpation Details No tenderness PT-OP-K Range of Motion Start: 02/03/24 07:30 Freq: Status: Active Protocol: Document 03/14/24 10:47 LRN (Rec: 03/14/24 11:32 LR [id number]) Shoulder Goniometric Range of Motion Shoulder Right Active Shoulder ROM WFL No Testing Position Supine Flexion 160 External Rotation at 90 degrees 90 Abduction Internal Rotation 40 Comments Sidelye IR is 45 deg's. Active AROM in standing is normal for flexion and abduction with mild pain on initial mvmt, then 0/10 pain with consecutive movements. Left Active Shoulder ROM WFL Yes Testing Position Supine Flexion 160 External Rotation at 90 degrees 70 Abduction Internal Rotation 50 Comments Sidelye IR is 45 deg's. PT-OP-L Special Tests Start: 02/03/24 10:37 Freq: Status: Active Protocol: Document 02/15/24 13:53 [facility] (Rec: 02/15/24 15:22 [facility] [id number]) Special Tests Shoulder Special Tests Biceps Load II Test Comments neg R Clunk Test Comments neg R speeds Comments pos minor pain [place] Test Comments positive more pain than speeds Empty Can Comments R mild inc pain PT-OP-M Strength Start: 02/03/24 07:30 Freq: Status: Active Protocol: Document 03/14/24 10:47 LRN (Rec: 03/14/24 11:32 LR [id number]) Shoulder Strength Shoulder Manual Muscle Testing Right Comments Sitting: Strength is 5/5 in all areas, with pain present at end-range. Left Comments Sitting: Strength is 5/5 in all areas. PT-OP-Q Treatments Start: 02/03/24 07:30 Freq: Status: Active Protocol: Document 03/14/24 10:47 LRN (Rec: 03/14/24 12:52 LRN [id number]) Therapeutic Exercises Supine Exercises Shoulder AROM Supine Exercise Name Flex, ER, IR Side bilateral Reps/Minutes 8' Comments AROM assessed & taken Sidelying Exercises Shoulder IR stretch Sidelying Exercise Name Shoulder IR AAROM with focus on R shoulder Side bilateral Reps/Minutes 4' Comments Pt needed training on max tolerated stretch for her to try and achieve. Sitting Exercises Shoulder YURIY Sitting Exercise Name Flex, AB, ER, IR, Horiz AB, Horiz AD, Ext. Side bilateral Reps/Minutes 10' Comments MMT taken Shoulder AROM Sitting Exercise Name Flex, AB, ER with R scapular guiding/cuing. Side bilateral Reps/Minutes 8' PT-OP-T Assessment and Plan Start: 02/03/24 07:30 Freq: Status: Active Protocol: Document 03/14/24 10:47 LRN (Rec: 03/14/24 11:32 LRN [id number]) Physical Therapy Assessment Rehab Potential Rehabilitation Potential Good Evaluation Complexity Number of Personal Factors/Comorbidities 1-2 Number of Body Systems Impaired 4 or More Clinical Presentation at Evaluation Evolving Impairments Impairments Activity Tolerance,Functional Mobility,Pain,ROM,Soft Tissue Mobility,Transfers Goals Three Impairment Decreased R shoulder strength (generally 2/5) Short Term Goal (STG) Pt will be able to lift her 11 # dog, and push with R arm while rolling in bed at night w/o pain. 03/07/2024 Alexy reports she is able to lift her dog with both arms with no increased pain, but rolling in bed still hurts. 03/14/24: Can lift her dog. In bed is when her R shoulder bothers her the most. Rolling around in bed hurts but not as severe as when first came in. STG Duration 04/14/24 (03/14/24: Partially met goal, pain with moving in bed) Senior Care Goal (LTG) Improve R shoulder strength with pt able to return to playing pickleball w/tolerable pain. 03/07/2024 Patient reports returning to pickle ball with pain level 3/10 which doesn't interfere with playing the game. 03/14/24: Has returned to playing pickle ball, hasn't noticed pain with play. R shoulder strength is 5/5. LTG Duration 04/28/24 (03/14/24: MET GOAL). Two Impairment R shoulder Pain with functional activities (UE QUICKDASH score - 47) Short Term Goal (STG) Improve R shoulder/scapular strength with pt able to stand and hold hands w/o R shoulder pain and reduce pain with pt able to lift the arm forward and out to the side with tolerable discomfort or improved UE QuickDASH score 39 or less. 03/07/2024 reports pain with horizontal adduction persists. 03/14/24: R shoulder strength is 5/5. Reaching backwards causes pain rated 5/10 in anterior shoulder to elbow; Flexion and AB - 0/10. UE Quickdash score 27 STG Duration 04/14/24 (03/14/24: MET GOAL) Photonics Engineer Goal (LTG) Improve level of functional with pt able to do functional activities with tolerable discomfort or no pain: doing dishes, sweeping floor, dressing (putting top on overhead), night rolling in bed at night (pushing with R arm) & driving (turning to right). 02/10/24: ed use pillows for support RUE, spine and BLEs for alignment support. 03/07/1014 Patient reports sweeping and washing dishes are no longer painful, but vacuuming hurts and sometimes reaching high overhead for pillows is painful when lowering the UE. 03/14/24: Pain with vacuuming , pulling shirts overhead, putting arm in coat (w/ abduction), rolling in bed at night (pushing with R arm) & driving (turning to right). LTG Duration 05/12/24 progressing 03/13/24 One Impairment Pt lacks appropriate self care HEP. Short Term Goal (STG) Pt will be educated and will demonstrate proper scapulohumeral rhythm with R shoulder mvmt and best practice R shoulder positioning for nighttime sleep. 02/10/24: pt making gains in AROM L SL: FF 170*, ABD 145 * HABD (add DB next tx). 03/01/2024 AROM right shoulder flexion 164 deg standing with reports of no pain lowering UE . 03/14/24: Normal SHR with flexion and AB. Return from AB loss of scapular control from ~90 deg's to arm by side. Mary Graham PTA educated and trained pt in best positioning for sleeping in sidelye and supine. STG Duration 04/14/24 progressing Senior Care Goal (LTG) Pt will be independent and consistent with a self care HEP for R shoulder/scapular ROM/strengthening and mobility ex's. 02/10/24: added L SL R shld aBD, FF and HABD, seated neck stretches UT, LS, scalenes. 02/18/2024 Isometric reactive shoulder ER and IR added to HEP 03/07/2024 Patient reports performing HEP every other day . LTG Duration 05/12/24 progressing Assessment Summary Assessment Pt is a 78 yo female who initially presented with R RC dysfunction with neg tests for labral invovlement except OBriens, but positive for empty can and forced flexion, indicating likely impingement syndrome. Further medical assessment (MRI with contrast) would be appropriate to determine soft tissue dysfunction. The pt has made good improvement in her ROM and R shoulder strength from generally 2/5 to now 5/5, but pain is present on AB and extension. Her mobility is limited with IR due to pain and stiffness. She has R shoulder scapulohumeral dysfunction on return from AB for the last 90 deg's. She does continue to have R shoulder pain with functional use ( donning clothing and moving in bed at night); therefore further skilled physical therapy would be appropriate to address her ROM and strength deficits, but the pt is also being referred back for discussion of further assessment of soft tissue dyfunction with possible imaging. The pt completed today's appt with exercise and STM with Mary Graham PTA. Physical Therapy Plan Frequency and Duration Frequency of Treatment 2x/Week Duration of treatment (weeks) 8 Plan of Care Start Date 03/14/24 Plan of Care End Date 05/12/24 Therapeutic Interventions Therapeutic Interventions Home Exercise Program,Manual Therapy,Neuromuscular Re- education,Self-Care/Home Management,Soft Tissue Mobilization,Therapeutic Activities,Therapeutic Exercises Next Visit Focus/Plan Next Note Type Treatment Note Next Visit Plan Pt to continue until MD assessment and recommendations determined. Plan for continuation of PT for R Scapular stab, RC strengthening for pain reduction with functional activities. Next: Check when pt see MD next. Review HEP: condense HEP, progress to isotoninc IR and ER as able , possibly rhythmic oscillation. POC: Scapular stabilization, Therapeutic Ex (IR ROM, & scap stab/RC progressive strengthening), manual therapy (subscap stretch, STM as needed for pain), Pt Education (HEP, Edema and pain mgmt).
--- NOTE | 2024-03-14 16:37 | PT.OTN ---
Addendum entered and electronically signed by Cherie Koroma 03/14/24 17:35: Error Start 11:17 end 11:33 not 1203. Addendum entered and electronically signed by Cherie Koroma 03/14/24 16:42: Start 11: end 12:03. Performed contract relax into sleeper stretch X 3 right UE, followed by patient performing sleeper stretch X 10 for 10 second holds, and high row/lat X10 X 2 level 3 band (verbal and visual cues for both, tactile for sleeper stretch. 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 Original Note: Current Diagnoses Other enthesopathies, not elsewhere classified (03/14/24) Physical Therapy Treatment Note PT-OP-A Visit Information Start: 02/03/24 07:30 Freq: Status: Active Protocol: Document 03/14/24 10:47 LRN (Rec: 03/14/24 11:32 LRN [id number]) Out-Patient Physical Therapy Visit Information Visit Information Visit Type Progress Note Visit Start Time 10:47 Visit Stop Time 11:33 Visit Number 7 (10/05 with eval) Evaluation Information Evaluation Date 02/03/24 Precautions Precautions Neuropathy of nikunj feet. PT-OP-B Current Condition Start: 02/03/24 07:30 Freq: Status: Active Protocol: Document 02/03/24 09:02 LRN (Rec: 02/03/24 10:37 LRN [id number]) Current Condition History of Current Condition Onset Date 3 months ago Current Complaints Pain w/mvmt in R anterior brachium and anterior chest. History of Current Condition R shoulder pain 3 months ago, thinks started due to playing pickle ball. Was on vacation the last 2 weeks on cruise to [place], and hasn't been playing pickleball, but was moving her suitcase around so her condition is worse. States she has tried a topical cream (thinks it is an anti- inflammatory), that was not helpful. Pt is R handed. Prior Treatments and Tests None Treatment Goals Patient/Caregiver Goals Pt goals: - Eliminate pain to not have to avoid using the arm with lifting (especially out to side), and in static standing holding hands together. - No pain with functional activities: dishes, lifting dog (11#), sweeping floor, dressing (putting top on overhead), night rolling in bed at night (pushing with R arm) & driving (turning to right). - Be able to return to playing pickleball w/o pain. - Pt consistent in an independent in a self care HEP . Prior Functional Status Baseline Function- Recreation/Hobbies Plays pickle ball 2x/week. Current Functional Impairments (Reported) Functional Limitations- Recreation/ Hasn't played pickleball for 2 Hobbies weeks since on vacation. Supposed to return today. Personal Factors Other Personal Factors That May Effect History of back pain. Therapy/Recovery Pt plays pickleball consistently. PT-OP-C Subjective Start: 02/03/24 07:30 Freq: Status: Active Protocol: Document 03/14/24 10:47 LRN (Rec: 03/14/24 11:32 LRN [id number]) OP-PT Subjective Patient Comments Patient Comments States her R shoulder is feeling better and thinks she can discharge from therapy. She feels better after playing pickle ball. Has been told she needs to strengthen her shoulder. Can lift her dog. In bed is when her R shoulder bothers her the most. Rolling around in bed hurts but not as severe as when first came in. Patient Questionnaires Quick Dash- Upper Extremity Quick Dash UE Score 27.27 Quick Dash UE Impairment 20 to 39% Impaired (Score 20- 39) OP-PT Pain Assessment Location R shoulder Pain Location Details Anterior shoulder Intensity 6 Scale Used Numeric (0 - 10) PT-OP-E Functional Tests Start: 02/03/24 07:30 Freq: Status: Active Protocol: Document 02/03/24 09:02 LRN (Rec: 02/03/24 10:37 LRN [id number]) Functional Tests Apley's Scratch Test Action 1- Left Below inferior angle of opp scapula Action 1- Right Acromion process at UT angle Action 2- Left T2-T3 Action 2- Right Mid posterior head Action 3- Left T6 Action 3- Right T11 PT-OP-F Manual Assessment Start: 02/03/24 07:30 Freq: Status: Active Protocol: Document 02/03/24 09:02 LRN (Rec: 02/03/24 10:37 LRN [id number]) Manual Assessments Soft Tissue Assessment Soft Tissue Mobility Assessment Atrophy of R Rhomboid Minor, Upper Rhomboid Major, Infraspinatus PT-OP-H Neuro Start: 02/03/24 07:30 Freq: Status: Active Protocol: Document 02/03/24 09:02 LRN (Rec: 02/03/24 10:37 LRN [id number]) Sensation Evaluation Gross Sensation Gross Sensation WNL Comments Summary Comments Tingly neuropathy in the plantar aspect of bilateral feet. Deep Tendon Reflex & Clonus Assessment Deep Tendon Reflex Right Tricep Deep Tendon Reflex 0 Absent Left Tricep Deep Tendon Reflex 2+ Normal Right Bicep Deep Tendon Reflex 1+ Diminished Left Bicep Deep Tendon Reflex 2+ Normal PT-OP-J Posture/Palpation/Skin Start: 02/03/24 07:30 Freq: Status: Active Protocol: Document 02/03/24 09:02 LRN (Rec: 02/03/24 10:37 LRN [id number]) Posture Evaluation Position Standing L-Spine Posture Shifted Left Scapula Posture (R) Rotated Down,(R) Depressed Arm Posture (L) Internally Rotated,(R) Internally Rotated Pelvis Posture Anteriorly Tilted,(R) Iliac Crest Superior Weight Distribution Balanced Comments Posture Comments Mild R shoulder high, dowagers hump, very mild scoliosis with upper apex on left @T6, lower on R @T8, pelvic anter tilt is slight, R leg in ER Palpation Assessment Location R Anterior chest Palpation Location R Pecs, Coracoid process, Anterior Scalenes, UT Palpation Details No Tenderness R anterior brachium Palpation Location Biceps and anterior GHJ capsule Palpation Details No tenderness PT-OP-K Range of Motion Start: 02/03/24 07:30 Freq: Status: Active Protocol: Document 03/14/24 10:47 LRN (Rec: 03/14/24 11:32 LRN [id number]) Shoulder Goniometric Range of Motion Shoulder Right Active Shoulder ROM WFL No Testing Position Supine Flexion 160 External Rotation at 90 degrees 90 Abduction Internal Rotation 40 Comments Sidelye IR is 45 deg's. Active AROM in standing is normal for flexion and abduction with mild pain on initial mvmt, then 0/10 pain with consecutive movements. Left Active Shoulder ROM WFL Yes Testing Position Supine Flexion 160 External Rotation at 90 degrees 70 Abduction Internal Rotation 50 Comments Sidelye IR is 45 deg's. PT-OP-L Special Tests Start: 02/03/24 10:37 Freq: Status: Active Protocol: Document 02/15/24 13:53 LR (Rec: 02/15/24 15:22 [facility] [id number]) Special Tests Shoulder Special Tests Biceps Load II Test Comments neg R Clunk Test Comments neg R speeds Comments pos minor pain Trousdale Test Comments positive more pain than speeds Empty Can Comments R mild inc pain PT-OP-M Strength Start: 02/03/24 07:30 Freq: Status: Active Protocol: Document 03/14/24 10:47 LRN (Rec: 03/14/24 11:32 LR [id number]) Shoulder Strength Shoulder Manual Muscle Testing Right Comments Sitting: Strength is 5/5 in all areas, with pain present at end-range. Left Comments Sitting: Strength is 5/5 in all areas. PT-OP-Q Treatments Start: 02/03/24 07:30 Freq: Status: Active Protocol: Document 03/14/24 10:47 LRN (Rec: 03/14/24 12:52 LR [id number]) Therapeutic Exercises Supine Exercises Shoulder AROM Supine Exercise Name Flex, ER, IR Side bilateral Reps/Minutes 8' Comments AROM assessed & taken Sidelying Exercises Shoulder IR stretch Sidelying Exercise Name Shoulder IR AAROM with focus on R shoulder Side bilateral Reps/Minutes 4' Comments Pt needed training on max tolerated stretch for her to try and achieve. Sitting Exercises Shoulder YURYI Sitting Exercise Name Flex, AB, ER, IR, Horiz AB, Horiz AD, Ext. Side bilateral Reps/Minutes 10' Comments MMT taken Shoulder AROM Sitting Exercise Name Flex, AB, ER with R scapular guiding/cuing. Side bilateral Reps/Minutes 8' PT-OP-T Assessment and Plan Start: 02/03/24 07:30 Freq: Status: Active Protocol: Document 03/14/24 10:47 LRN (Rec: 03/14/24 11:32 LRN [id number]) Physical Therapy Assessment Rehab Potential Rehabilitation Potential Good Evaluation Complexity Number of Personal Factors/Comorbidities 1-2 Number of Body Systems Impaired 4 or More Clinical Presentation at Evaluation Evolving Impairments Impairments Activity Tolerance,Functional Mobility,Pain,ROM,Soft Tissue Mobility,Transfers Goals Three Impairment Decreased R shoulder strength (generally 2/5) Short Term Goal (STG) Pt will be able to lift her 11 # dog, and push with R arm while rolling in bed at night w/o pain. 03/07/2024 Alexy reports she is able to lift her dog with both arms with no increased pain, but rolling in bed still hurts. 03/14/24: Can lift her dog. In bed is when her R shoulder bothers her the most. Rolling around in bed hurts but not as severe as when first came in. STG Duration 04/14/24 (03/14/24: Partially met goal, pain with moving in bed) Building Maintenance Repairer Goal (LTG) Improve R shoulder strength with pt able to return to playing pickleball w/tolerable pain. 03/07/2024 Patient reports returning to [employer] with pain level 3/10 which doesn't interfere with playing the game. 03/14/24: Has returned to playing pickle ball, hasn't noticed pain with play. R shoulder strength is 5/5. LTG Duration 04/28/24 (03/14/24: MET GOAL). Two Impairment R shoulder Pain with functional activities (UE QUICKDASH score - 47) Short Term Goal (STG) Improve R shoulder/scapular strength with pt able to stand and hold hands w/o R shoulder pain and reduce pain with pt able to lift the arm forward and out to the side with tolerable discomfort or improved UE QuickDASH score 39 or less. 03/07/2024 reports pain with horizontal adduction persists. 03/14/24: R shoulder strength is 5/5. Reaching backwards causes pain rated 5/10 in anterior shoulder to elbow; Flexion and AB - 0/10. UE Quickdash score 27 STG Duration 04/14/24 (03/14/24: MET GOAL) Building Maintenance Repairer Goal (LTG) Improve level of functional with pt able to do functional activities with tolerable discomfort or no pain: doing dishes, sweeping floor, dressing (putting top on overhead), night rolling in bed at night (pushing with R arm) & driving (turning to right). 02/10/24: ed use pillows for support RUE, spine and BLEs for alignment support. 03/07/1014 Patient reports sweeping and washing dishes are no longer painful, but vacuuming hurts and sometimes reaching high overhead for pillows is painful when lowering the UE. 03/14/24: Pain with vacuuming , pulling shirts overhead, putting arm in coat (w/ abduction), rolling in bed at night (pushing with R arm) & driving (turning to right). LTG Duration 05/12/24 progressing 03/13/24 One Impairment Pt lacks appropriate self care HEP. Short Term Goal (STG) Pt will be educated and will demonstrate proper scapulohumeral rhythm with R shoulder mvmt and best practice R shoulder positioning for nighttime sleep. 02/10/24: pt making gains in AROM L SL: FF 170*, ABD 145 * HABD (add DB next tx). 03/01/2024 AROM right shoulder flexion 164 deg standing with reports of no pain lowering UE . 03/14/24: Normal SHR with flexion and AB. Return from AB loss of scapular control from ~90 deg's to arm by side. Mary Graham, ROBBIE educated and trained pt in best positioning for sleeping in sidelye and supine. STG Duration 04/14/24 progressing Building Maintenance Repairer Goal (LTG) Pt will be independent and consistent with a self care HEP for R shoulder/scapular ROM/strengthening and mobility ex's. 02/10/24: added L SL R shld aBD, FF and HABD, seated neck stretches UT, LS, scalenes. 02/18/2024 Isometric reactive shoulder ER and IR added to HEP 03/07/2024 Patient reports performing HEP every other day . LTG Duration 05/12/24 progressing Assessment Summary Assessment Pt is a 78 yo female who initially presented with R RC dysfunction with neg tests for labral invovlement except OBriens, but positive for empty can and forced flexion, indicating likely impingement syndrome. Further medical assessment (MRI with contrast) would be appropriate to determine soft tissue dysfunction. The pt has made good improvement in her ROM and R shoulder strength from generally 2/5 to now 5/5, but pain is present on AB and extension. Her mobility is limited with IR due to pain and stiffness. She has R shoulder scapulohumeral dysfunction on return from AB for the last 90 deg's. She does continue to have R shoulder pain with functional use ( donning clothing and moving in bed at night); therefore further skilled physical therapy would be appropriate to address her ROM and strength deficits, but the pt is also being referred back for discussion of further assessment of soft tissue dyfunction with possible imaging. The pt completed today's appt with exercise and STM with Mary Graham PTA. Physical Therapy Plan Frequency and Duration Frequency of Treatment 2x/Week Duration of treatment (weeks) 8 Plan of Care Start Date 03/14/24 Plan of Care End Date 05/12/24 Therapeutic Interventions Therapeutic Interventions Home Exercise Program,Manual Therapy,Neuromuscular Re- education,Self-Care/Home Management,Soft Tissue Mobilization,Therapeutic Activities,Therapeutic Exercises Next Visit Focus/Plan Next Note Type Treatment Note Next Visit Plan Pt to continue until MD assessment and recommendations determined. Plan for continuation of PT for R Scapular stab, RC strengthening for pain reduction with functional activities. Next: Check when pt see MD next. Review HEP: condense HEP, progress to isotoninc IR and ER as able , possibly rhythmic oscillation. POC: Scapular stabilization, Therapeutic Ex (IR ROM, & scap stab/RC progressive strengthening), manual therapy (subscap stretch, STM as needed for pain), Pt Education (HEP, Edema and pain mgmt).
--- NOTE | 2024-03-17 12:32 | PT.OTN ---
Current Diagnoses Other enthesopathies, not elsewhere classified (03/17/24) Physical Therapy Treatment Note PT-OP-A Visit Information Start: 02/03/24 07:30 Freq: Status: Active Protocol: Document 03/17/24 11:35 LRN (Rec: 03/17/24 12:31 LRN [id number]) Out-Patient Physical Therapy Visit Information Visit Information Visit Type Treatment Note Visit Start Time 11:35 Visit Stop Time 12:19 Evaluation Information Evaluation Date 02/03/24 Precautions Precautions Neuropathy of nikunj feet. PT-OP-B Current Condition Start: 02/03/24 07:30 Freq: Status: Active Protocol: Document 02/03/24 09:02 LRN (Rec: 02/03/24 10:37 LRN [id number]) Current Condition History of Current Condition Onset Date 3 months ago Current Complaints Pain w/mvmt in R anterior brachium and anterior chest. History of Current Condition R shoulder pain 3 months ago, thinks started due to playing pickle ball. Was on vacation the last 2 weeks on cruise to [place], and hasn't been playing pickleball, but was moving her suitcase around so her condition is worse. States she has tried a topical cream (thinks it is an anti- inflammatory), that was not helpful. Pt is R handed. Prior Treatments and Tests None Treatment Goals Patient/Caregiver Goals Pt goals: - Eliminate pain to not have to avoid using the arm with lifting (especially out to side), and in static standing holding hands together. - No pain with functional activities: dishes, lifting dog (11#), sweeping floor, dressing (putting top on overhead), night rolling in bed at night (pushing with R arm) & driving (turning to right). - Be able to return to playing pickleball w/o pain. - Pt consistent in an independent in a self care HEP . Prior Functional Status Baseline Function- Recreation/Hobbies Plays pickle ball 2x/week. Current Functional Impairments (Reported) Functional Limitations- Recreation/ Hasn't played pickleball for 2 Hobbies weeks since on vacation. Supposed to return today. Personal Factors Other Personal Factors That May Effect History of back pain. Therapy/Recovery Pt plays pickleball consistently. PT-OP-C Subjective Start: 02/03/24 07:30 Freq: Status: Active Protocol: Document 03/17/24 11:35 LRN (Rec: 03/17/24 12:31 LRN [id number]) OP-PT Subjective Patient Comments Patient Comments Pt states no change. PT-OP-E Functional Tests Start: 02/03/24 07:30 Freq: Status: Active Protocol: Document 02/03/24 09:02 LRN (Rec: 02/03/24 10:37 LRN [id number]) Functional Tests Apley's Scratch Test Action 1- Left Below inferior angle of opp scapula Action 1- Right Acromion process at UT angle Action 2- Left T2-T3 Action 2- Right Mid posterior head Action 3- Left T6 Action 3- Right T11 PT-OP-F Manual Assessment Start: 02/03/24 07:30 Freq: Status: Active Protocol: Document 02/03/24 09:02 LRN (Rec: 02/03/24 10:37 LRN [id number]) Manual Assessments Soft Tissue Assessment Soft Tissue Mobility Assessment Atrophy of R Rhomboid Minor, Upper Rhomboid Major, Infraspinatus PT-OP-H Neuro Start: 02/03/24 07:30 Freq: Status: Active Protocol: Document 02/03/24 09:02 LRN (Rec: 02/03/24 10:37 LRN [id number]) Sensation Evaluation Gross Sensation Gross Sensation WNL Comments Summary Comments Tingly neuropathy in the plantar aspect of bilateral feet. Deep Tendon Reflex & Clonus Assessment Deep Tendon Reflex Right Tricep Deep Tendon Reflex 0 Absent Left Tricep Deep Tendon Reflex 2+ Normal Right Bicep Deep Tendon Reflex 1+ Diminished Left Bicep Deep Tendon Reflex 2+ Normal PT-OP-J Posture/Palpation/Skin Start: 02/03/24 07:30 Freq: Status: Active Protocol: Document 02/03/24 09:02 LRN (Rec: 02/03/24 10:37 LRN [id number]) Posture Evaluation Position Standing L-Spine Posture Shifted Left Scapula Posture (R) Rotated Down,(R) Depressed Arm Posture (L) Internally Rotated,(R) Internally Rotated Pelvis Posture Anteriorly Tilted,(R) Iliac Crest Superior Weight Distribution Balanced Comments Posture Comments Mild R shoulder high, dowagers hump, very mild scoliosis with upper apex on left @T6, lower on R @T8, pelvic anter tilt is slight, R leg in ER Palpation Assessment Location R Anterior chest Palpation Location R Pecs, Coracoid process, Anterior Scalenes, UT Palpation Details No Tenderness R anterior brachium Palpation Location Biceps and anterior GHJ capsule Palpation Details No tenderness PT-OP-K Range of Motion Start: 02/03/24 07:30 Freq: Status: Active Protocol: Document 03/14/24 10:47 LRN (Rec: 03/14/24 11:32 LRN [id number]) Shoulder Goniometric Range of Motion Shoulder Right Active Shoulder ROM WFL No Testing Position Supine Flexion 160 External Rotation at 90 degrees 90 Abduction Internal Rotation 40 Comments Sidelye IR is 45 deg's. Active AROM in standing is normal for flexion and abduction with mild pain on initial mvmt, then 0/10 pain with consecutive movements. Left Active Shoulder ROM WFL Yes Testing Position Supine Flexion 160 External Rotation at 90 degrees 70 Abduction Internal Rotation 50 Comments Sidelye IR is 45 deg's. PT-OP-L Special Tests Start: 02/03/24 10:37 Freq: Status: Active Protocol: Document 02/15/24 13:53 LR (Rec: 02/15/24 15:22 [facility] [id number]) Special Tests Shoulder Special Tests Biceps Load II Test Comments neg R Clunk Test Comments neg R speeds Comments pos minor pain [place] Test Comments positive more pain than speeds Empty Can Comments R mild inc pain PT-OP-M Strength Start: 02/03/24 07:30 Freq: Status: Active Protocol: Document 03/14/24 10:47 LRN (Rec: 03/14/24 11:32 LR [id number]) Shoulder Strength Shoulder Manual Muscle Testing Right Comments Sitting: Strength is 5/5 in all areas, with pain present at end-range. Left Comments Sitting: Strength is 5/5 in all areas. PT-OP-Q Treatments Start: 02/03/24 07:30 Freq: Status: Active Protocol: Document 03/17/24 11:35 LRN (Rec: 03/17/24 12:31 LR [id number]) Cardio Equipment Upper Body Ergometer (UBE) Duration (Minutes) 6 RPM 90 Height 2.5 Therapeutic Exercises Sidelying Exercises Shoulder IR stretch Sidelying Exercise Name Started with L arm to help pt identify normal mvmt Side right Reps/Minutes 5' Comments Extra time needed to teach pt max mvmt and precaution of stretch. R Shoulder Trio Sidelying Exercise Name Open book, AB>hand behind head , flex Side right Sitting Exercises Neck stretches Sitting Exercise Name C. UT, SCM, Lev Scap Reps/Minutes 10 SH x 6 Comments Pt cued to hold 10 sec Standing Exercises wall slide flexion Standing Exercise Name with lift off and lower without use of wall Side bilateral Equipment Used HEP Reps/Minutes 15x Comments verbal and physical cues lower trap lift in counter plank Standing Exercise Name shoulder flexion/lower trap lift Side bilateral Equipment Used HEP Reps/Minutes 15x Comments verbal and physical cues Push up plus on wall Standing Exercise Name Push up Plus Side right Reps/Minutes 15x 2 shoulder ER and IR Standing Exercise Name Isometric step outs and ARROM Side right Equipment Used L2 TB Reps/Minutes 20x Hernan, Conc 15x 2 Comments Extra time to determine max tolerated resistance and mvmt Therapeutic Activity Therapeutic Activity Donning Coat Name Training to don coat putting R arm in sleeve first Reps/Minutes 3' Manual Therapy Treatment Manual Techniques MWM Type Lat pull down mvmt with dowel stick, scap cuing assist Body Location R scapula Body Position Supine Reps/Duration 6' PT-OP-T Assessment and Plan Start: 02/03/24 07:30 Freq: Status: Active Protocol: Document 03/17/24 11:35 LRN (Rec: 03/17/24 12:31 LRN [id number]) Physical Therapy Assessment Goals Three Impairment Decreased R shoulder strength (generally 2/5) Short Term Goal (STG) Pt will be able to lift her 11 # dog, and push with R arm while rolling in bed at night w/o pain. 03/07/2024 Alexy reports she is able to lift her dog with both arms with no increased pain, but rolling in bed still hurts. 03/14/24: Can lift her dog. In bed is when her R shoulder bothers her the most. Rolling around in bed hurts but not as severe as when first came in. STG Duration 04/14/24 (03/14/24: Partially met goal, pain with moving in bed) Assisted Goal (LTG) Improve R shoulder strength with pt able to return to playing pickleball w/tolerable pain. 03/07/2024 Patient reports returning to pickle ball with pain level 3/10 which doesn't interfere with playing the game. 03/14/24: Has returned to playing pickle ball, hasn't noticed pain with play. R shoulder strength is 5/5. LTG Duration 04/28/24 (03/14/24: MET GOAL). Two Impairment R shoulder Pain with functional activities (UE QUICKDASH score - 47) Short Term Goal (STG) Improve R shoulder/scapular strength with pt able to stand and hold hands w/o R shoulder pain and reduce pain with pt able to lift the arm forward and out to the side with tolerable discomfort or improved UE QuickDASH score 39 or less. 03/07/2024 reports pain with horizontal adduction persists. 03/14/24: R shoulder strength is 5/5. Reaching backwards causes pain rated 5/10 in anterior shoulder to elbow; Flexion and AB - 0/10. UE Quickdash score 27 STG Duration 04/14/24 (03/14/24: MET GOAL) [place] Farmer Goal (LTG) Improve level of functional with pt able to do functional activities with tolerable discomfort or no pain: doing dishes, sweeping floor, dressing (putting top on overhead), night rolling in bed at night (pushing with R arm) & driving (turning to right). 02/10/24: ed use pillows for support RUE, spine and BLEs for alignment support. 03/07/1014 Patient reports sweeping and washing dishes are no longer painful, but vacuuming hurts and sometimes reaching high overhead for pillows is painful when lowering the UE. 03/14/24: Pain with vacuuming , pulling shirts overhead, putting arm in coat (w/ abduction), rolling in bed at night (pushing with R arm) & driving (turning to right). LTG Duration 05/12/24 progressing 03/13/24 One Impairment Pt lacks appropriate self care HEP. Short Term Goal (STG) Pt will be educated and will demonstrate proper scapulohumeral rhythm with R shoulder mvmt and best practice R shoulder positioning for nighttime sleep. 02/10/24: pt making gains in AROM L SL: FF 170*, ABD 145 * HABD (add DB next tx). 03/01/2024 AROM right shoulder flexion 164 deg standing with reports of no pain lowering UE . 03/14/24: Normal SHR with flexion and AB. Return from AB loss of scapular control from ~90 deg's to arm by side. Mary Graham, ENROLLMENT CLERK educated and trained pt in best positioning for sleeping in sidelye and supine. STG Duration 04/14/24 progressing [place] Farmer Goal (LTG) Pt will be independent and consistent with a self care HEP for R shoulder/scapular ROM/strengthening and mobility ex's. 02/10/24: added L SL R shld aBD, FF and HABD, seated neck stretches UT, LS, scalenes. 02/18/2024 Isometric reactive shoulder ER and IR added to HEP 03/07/2024 Patient reports performing HEP every other day . LTG Duration 05/12/24 progressing Assessment Summary Assessment Pt is a 78 yo female who initially presented with R RC dysfunction with neg tests for labral invovlement except OBriens, but positive for empty can and forced flexion, indicating likely impingement syndrome. Today pt appears ready for RC strengthening and needs normalization of R scapulohumeral rhythm. Physical Therapy Plan Frequency and Duration Frequency of Treatment 2x/Week Duration of treatment (weeks) 8 Plan of Care Start Date 03/14/24 Plan of Care End Date 05/12/24 Next Visit Focus/Plan Next Note Type Treatment Note Next Visit Plan Pt to continue until MD assessment/recommendation is determined, Pt hasn't yet scheduled MD, note date when appt made. Plan for continuation of PT for R Scapular stab/proper scapular rhythm, RC strengthening for pain reduction with functional activities. Next: Educate pt in Edema and pain mgmt. Review HEP: condense HEP. Progress isotoninc IR/ER, scap stab & normalize SHR, possibly rhythmic oscillation. POC: Scapular stabilization, Therapeutic Ex (IR ROM, & scap stab/RC progressive strengthening), manual therapy (as needed: subscap stretch, & STM for pain), Pt Education (HEP).
--- NOTE | 2024-04-04 17:19 | PT.OTN ---
Current Diagnoses Other enthesopathies, not elsewhere classified (04/04/24) Physical Therapy Treatment Note PT-OP-A Visit Information Start: 02/03/24 07:30 Freq: Status: Active Protocol: Document 04/04/24 08:17 LRN (Rec: 04/04/24 09:05 LRN [id number]) Out-Patient Physical Therapy Visit Information Visit Information Visit Type Treatment Note Visit Start Time 08:17 Visit Stop Time 09:05 Visit Number 9 (12/06 w/eval) Evaluation Information Evaluation Date 02/03/24 Precautions Precautions Neuropathy of nikunj feet. PT-OP-B Current Condition Start: 02/03/24 07:30 Freq: Status: Active Protocol: Document 02/03/24 09:02 LRN (Rec: 02/03/24 10:37 LRN [id number]) Current Condition History of Current Condition Onset Date 3 months ago Current Complaints Pain w/mvmt in R anterior brachium and anterior chest. History of Current Condition R shoulder pain 3 months ago, thinks started due to playing pickle ball. Was on vacation the last 2 weeks on cruise to [place], and hasn't been playing pickleball, but was moving her suitcase around so her condition is worse. States she has tried a topical cream (thinks it is an anti- inflammatory), that was not helpful. Pt is R handed. Prior Treatments and Tests None Treatment Goals Patient/Caregiver Goals Pt goals: - Eliminate pain to not have to avoid using the arm with lifting (especially out to side), and in static standing holding hands together. - No pain with functional activities: dishes, lifting dog (11#), sweeping floor, dressing (putting top on overhead), night rolling in bed at night (pushing with R arm) & driving (turning to right). - Be able to return to playing pickleball w/o pain. - Pt consistent in an independent in a self care HEP . Prior Functional Status Baseline Function- Recreation/Hobbies Plays pickle ball 2x/week. Current Functional Impairments (Reported) Functional Limitations- Recreation/ Hasn't played pickleball for 2 Hobbies weeks since on vacation. Supposed to return today. Personal Factors Other Personal Factors That May Effect History of back pain. Therapy/Recovery Pt plays pickleball consistently. PT-OP-C Subjective Start: 02/03/24 07:30 Freq: Status: Active Protocol: Document 04/04/24 08:17 LRN (Rec: 04/04/24 09:05 LRN [id number]) OP-PT Subjective Patient Comments Patient Comments States her R shoulder cont's to hurt and the ex's makes it more painful. Agreeable to seek further medical assessment and for DC from PT today. Patient Questionnaires Quick Dash- Upper Extremity Quick Dash UE Score 36.36 Quick Dash UE Impairment 20 to 39% Impaired (Score 20- 39) OP-PT Pain Assessment Pain Assessment Grid Paper Pain Assessment Grid Completed Yes Location R shoulder Pain Location Details Anterior R shoulder Intensity 7 Scale Used Numeric (0 - 10) PT-OP-E Functional Tests Start: 02/03/24 07:30 Freq: Status: Active Protocol: Document 02/03/24 09:02 LRN (Rec: 02/03/24 10:37 LRN [id number]) Functional Tests Apley's Scratch Test Action 1- Left Below inferior angle of opp scapula Action 1- Right Acromion process at UT angle Action 2- Left T2-T3 Action 2- Right Mid posterior head Action 3- Left T6 Action 3- Right T11 PT-OP-F Manual Assessment Start: 02/03/24 07:30 Freq: Status: Active Protocol: Document 02/03/24 09:02 LRN (Rec: 02/03/24 10:37 LRN [id number]) Manual Assessments Soft Tissue Assessment Soft Tissue Mobility Assessment Atrophy of R Rhomboid Minor, Upper Rhomboid Major, Infraspinatus PT-OP-H Neuro Start: 02/03/24 07:30 Freq: Status: Active Protocol: Document 02/03/24 09:02 LRN (Rec: 02/03/24 10:37 LRN [id number]) Sensation Evaluation Gross Sensation Gross Sensation WNL Comments Summary Comments Tingly neuropathy in the plantar aspect of bilateral feet. Deep Tendon Reflex & Clonus Assessment Deep Tendon Reflex Right Tricep Deep Tendon Reflex 0 Absent Left Tricep Deep Tendon Reflex 2+ Normal Right Bicep Deep Tendon Reflex 1+ Diminished Left Bicep Deep Tendon Reflex 2+ Normal PT-OP-J Posture/Palpation/Skin Start: 02/03/24 07:30 Freq: Status: Active Protocol: Document 02/03/24 09:02 LRN (Rec: 02/03/24 10:37 LRN [id number]) Posture Evaluation Position Standing L-Spine Posture Shifted Left Scapula Posture (R) Rotated Down,(R) Depressed Arm Posture (L) Internally Rotated,(R) Internally Rotated Pelvis Posture Anteriorly Tilted,(R) Iliac Crest Superior Weight Distribution Balanced Comments Posture Comments Mild R shoulder high, dowagers hump, very mild scoliosis with upper apex on left @T6, lower on R @T8, pelvic anter tilt is slight, R leg in ER Palpation Assessment Location R Anterior chest Palpation Location R Pecs, Coracoid process, Anterior Scalenes, UT Palpation Details No Tenderness R anterior brachium Palpation Location Biceps and anterior GHJ capsule Palpation Details No tenderness PT-OP-K Range of Motion Start: 02/03/24 07:30 Freq: Status: Active Protocol: Document 04/04/24 08:17 LR (Rec: 04/04/24 09:05 [facility] [id number]) Shoulder Goniometric Range of Motion Shoulder Right Passive Shoulder ROM WFL No Testing Position Supine Flexion 170 Extension 180 External Rotation at 90 degrees 90 Abduction Internal Rotation 65 Comments With cuing to retract and depress scapula, pain in R shoulder is mild. Left Passive Testing Position Sitting Flexion 160 Extension 53 Abduction 160 External Rotation at 0 degrees Abduction 65 Internal Rotation Behind Back (text) T7 Right Active Shoulder ROM WFL No Testing Position Sitting Flexion 170 Extension 35 Abduction 168 External Rotation at 90 degrees 53 Abduction Internal Rotation Behind Back (text) T9 Comments Mvmts are in the scapular plane. PT-OP-L Special Tests Start: 02/03/24 10:37 Freq: Status: Active Protocol: Document 02/15/24 13:53 [facility] (Rec: 02/15/24 15:22 [facility] [id number]) Special Tests Shoulder Special Tests Biceps Load II Test Comments neg R Clunk Test Comments neg R speeds Comments pos minor pain Estill Test Comments positive more pain than speeds Empty Can Comments R mild inc pain PT-OP-M Strength Start: 02/03/24 07:30 Freq: Status: Active Protocol: Document 03/14/24 10:47 LR (Rec: 03/14/24 11:32 [facility] [id number]) Shoulder Strength Shoulder Manual Muscle Testing Right Comments Sitting: Strength is 5/5 in all areas, with pain present at end-range. Left Comments Sitting: Strength is 5/5 in all areas. PT-OP-Q Treatments Start: 02/03/24 07:30 Freq: Status: Active Protocol: Document 04/04/24 08:17 LRN (Rec: 04/04/24 09:05 LRN [id number]) Cardio Equipment Upper Body Ergometer (UBE) Duration (Minutes) 6 RPM 100 Height 2.5 Other Started fwd, switched to bkwd due to pn, extra time for set up & rest p ex. Therapeutic Exercises Supine Exercises Shoulder AROM Supine Exercise Name Flex, AB, ER, IR Side right Equipment Used Wand Reps/Minutes 5-10x stretch with holds Comments AROM measured Sidelying Exercises R Shoulder Trio Sidelying Exercise Name AB>hand behind head, flex Side right Reps/Minutes 6x AB, 5x flex Comments Asst given with flexion due to anter shdr pain. Sitting Exercises Mini band Sitting Exercise Name Hernan ER Side bilateral Reps/Minutes 10 SH x 10 Shoulder AROM Sitting Exercise Name Flex, ER, IR AROM with hold Side bilateral Reps/Minutes 1-2x Comments AROM assessed & measured PT-OP-T Assessment and Plan Start: 02/03/24 07:30 Freq: Status: Active Protocol: Document 04/04/24 08:17 LRN (Rec: 04/04/24 09:05 LRN [id number]) Physical Therapy Assessment Goals Three Impairment Decreased R shoulder strength (generally 2/5) Short Term Goal (STG) Pt will be able to lift her 11 # dog, and push with R arm while rolling in bed at night w/o pain. 03/07/2024 Alexy reports she is able to lift her dog with both arms with no increased pain, but rolling in bed still hurts. 03/14/24: Can lift her dog. In bed is when her R shoulder bothers her the most. Rolling around in bed hurts but not as severe as when first came in. 04/04/24: Lifting dog, compensating with L arm. STG Duration 04/14/24 (04/04/23: Partially met goal, pain with moving in bed) Router Tender Goal (LTG) Improve R shoulder strength with pt able to return to playing pickleball w/tolerable pain. 03/07/2024 Patient reports returning to pickle ball with pain level 3/10 which doesn't interfere with playing the game. 03/14/24: Has returned to playing pickle ball, hasn't noticed pain with play. R shoulder strength is 5/5. LTG Duration 04/28/24 (03/14/24: MET GOAL). Two Impairment R shoulder Pain with functional activities (UE QUICKDASH score - 47) Short Term Goal (STG) Improve R shoulder/scapular strength with pt able to stand and hold hands w/o R shoulder pain and reduce pain with pt able to lift the arm forward and out to the side with tolerable discomfort or improved UE QuickDASH score 39 or less. 03/07/2024 reports pain with horizontal adduction persists. 03/14/24: R shoulder strength is 5/5. Reaching backwards causes pain rated 5/10 in anterior shoulder to elbow; Flexion and AB - 0/10. UE Quickdash score 27 STG Duration 04/14/24 (03/14/24: MET GOAL) Fpc Goal (LTG) Improve level of functional with pt able to do functional activities with tolerable discomfort or no pain: doing dishes, sweeping floor, dressing (putting top on overhead), night rolling in bed at night (pushing with R arm) & driving (turning to right). 02/10/24: ed use pillows for support RUE, spine and BLEs for alignment support. 03/07/1014 Patient reports sweeping and washing dishes are no longer painful, but vacuuming hurts and sometimes reaching high overhead for pillows is painful when lowering the UE. 03/14/24: Pain with vacuuming , pulling shirts overhead, putting arm in coat (w/ abduction), rolling in bed at night (pushing with R arm) & driving (turning to right). 04/04/24: Less pain with doing dishes, but pain persists with sweeping floor (vacuuming floor), dressing (putting top on overhead), night rolling in bed at night (pushing with R arm) & driving (turning to right). LTG Duration 05/12/24 (04/04/24: Improved slightly, NOT MET GOAL) One Impairment Pt lacks appropriate self care HEP. Short Term Goal (STG) Pt will be educated and will demonstrate proper scapulohumeral rhythm with R shoulder mvmt and best practice R shoulder positioning for nighttime sleep. 11/14/24: pt making gains in AROM L SL: FF 170*, ABD 145 * HABD (add DB next tx). 03/01/2024 AROM right shoulder flexion 164 deg standing with reports of no pain lowering UE . 03/14/24: Normal SHR with flexion and AB. Return from AB loss of scapular control from ~90 deg's to arm by side. Mary Graham, [employer] educated and trained pt in best positioning for sleeping in sidelye and supine. 04/04/24: Pt has been educated in scapular stabilization, but pt is not able to perform independently and requires cuing. STG Duration 04/14/24 (04/04/24: NOT MET GOAL) Router Tender Goal (LTG) Pt will be independent and consistent with a self care HEP for R shoulder/scapular ROM/strengthening and mobility ex's. 02/10/24: added L SL R shld aBD, FF and HABD, seated neck stretches UT, LS, scalenes. 02/18/2024 Isometric reactive shoulder ER and IR added to HEP 03/07/2024 Patient reports performing HEP every other day . LTG Duration 05/12/24 (04/04/24: Pt has HEP appropriate for current condition) Assessment Summary Assessment The pt is a 78 yo female who intially presented with R RC dysfunction, poor scapular positioning and mostly negative tests for labral involvement, other provocative testing would indicated likely impingement syndrome. She has R anterior shoulder pain with forward flexion mvmt and pain with return from full flexion and abduction. She is still playing pickel ball with pain, but cont's to play. Her R shoulder pain is progressively getting worse and she has pain with shoulder (RC) strengthening. She does have less pain when she remembers to try and stabilize her scapula. Today she demonstrates overall some improvement with her function (see UE Quickdash), and with her R shoulder ROM, but pain persists. The pt is being referred back for further medical assessment and possible imaging for soft tissue dysfunction. Physical Therapy Plan Discharge Physical Therapy Discharge Reasons Plateau in Progress Discharge Comments Pt's R shoulder pain persists and is reportedly worsening. Recommend further evaluation of soft tissue to rule out Rotator cuff and labral dysfunction. Pt understands she will need a new referral to return to PT.
== END 2024-04-06 13:25 | disposition home or self-care (01) ==
LOC: PHYS 08:15
PROVIDERS: Family Provider Family Medicine; PCP Family Medicine; Referring Provider Family Medicine; Visit Provider Family Medicine
DX: M77.8 Other enthesopathies, not elsewhere classified (principal)
CPT/HCPCS: 97110; 97140; 97162; 97535

== ENCOUNTER → 2024-04-21 09:55 | Outpatient (CLI) | payer OTHER, SELFPAY ==
--- NOTE | 2024-04-21 09:56 | DI.RAD.S_ITS ---
PROCEDURE: XR SHOULDER RT MIN 2V INDICATIONS: R shoulder pain TECHNIQUE: 3 views of the shoulder were acquired. COMPARISON: None. FINDINGS: Bones: No acute fractures or dislocations. No suspicious bony lesions. Visualized ribs appear intact. Moderate acromioclavicular joint osteoarthrosis. Minimal glenohumeral osteoarthrosis. Soft tissues: No suspicious soft tissue calcifications. IMPRESSION: Moderate acromioclavicular joint osteoarthrosis. Approved by: Roger Leon M.D. on 04/21/2024 at 14:38
== END ==
PROVIDERS: Family Provider Family Medicine; PCP Family Medicine; Referring Provider Family Medicine; Visit Provider Family Medicine
DX: M25.511 Pain in right shoulder (principal); M75.01 Adhesive capsulitis of right shoulder; M19.011 Primary osteoarthritis, right shoulder
CPT/HCPCS: 73030

== ENCOUNTER → 2024-08-15 12:34 | Outpatient (CLI) | payer OTHER, SELFPAY ==
--- NOTE | 2024-08-15 12:35 | DI.MRI.S_ITS ---
PROCEDURE: MR SHOULDER RT WO CON INDICATIONS: evaluate and treat TECHNIQUE: Noncontrast oblique coronal T2 fast spin echo with fat saturation, oblique sagittal T1 spin echo and T2 fast spin echo with fat saturation, axial T1 spin echo and T2 fast spin echo with fat saturation through the shoulder. COMPARISON: [facility], CR, XR SHOULDER RT MIN 2V, 04/21/2024, 10:00. FINDINGS: Image quality: Excellent. Bones: The bone marrow signal is normal. There is no acute fracture or dislocation. Acromioclavicular joint: Moderate osteoarthritis. There is a type 2 acromion. Glenohumeral joint: Mild osteoarthritis. There is no significant joint effusion. Labrum: The labrum is normal. Cartilage: There is no significant articular cartilage defect. Subacromial-subdeltoid bursa: There is a small amount of fluid in the subacromial-subdeltoid bursa, decompressing from the glenohumeral joint find the rotator cuff pathology noted below. Rotator cuff: Superimposed on moderate tendinosis, there is a near full width, partial-thickness, bursal sided tear of the supraspinatus anterior bundle tendon fibers at the footprint (8/8), along with additional high-grade tearing at the critical zone and myotendinous junction (8/8-10), and tendon retraction to the level of the humeral apex (8/9). There is mild tendinosis of the posterior bundle supraspinatus fibers. There is mild infraspinatus tendinosis. There is mild subscapularis tendinosis. The teres minor tendon is intact. Long head of biceps tendon: The long head of the biceps tendon is present within the bicipital groove and intact. Musculature: Muscle bulk is preserved without evidence of denervation or fatty atrophy. Inferior glenohumeral ligaments/Axillary pouch: The axillary pouch is normal in thickness and signal. Coracoclavicular and coracoacromial ligaments: The coracoclavicular and coracoacromial ligaments are normal. Other: No other acute abnormality. IMPRESSION: 1. 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 2. Mild tendinosis of the supraspinatus tendon posterior bundle fibers. 3. Mild infraspinatus tendinosis. 4. Mild subscapularis tendinosis. 5. Moderate acromioclavicular osteoarthritis. 6. Mild glenohumeral osteoarthritis. Dictated by: Christoph Putnam M.D. on 08/15/2024 at 14:37 Approved by: Christoph Putnam M.D. on 08/15/2024 at 14:52
== END ==
LOC: MRI 12:34
PROVIDERS: Family Provider Family Medicine; PCP Family Medicine; Referring Provider Family Medicine; Visit Provider Family Medicine
DX: M75.81 Other shoulder lesions, right shoulder (principal); M75.00 Adhesive capsulitis of unspecified shoulder; M75.111 Incomplete rotator cuff tear or rupture of right shoulder, not specified as traumatic; M19.011 Primary osteoarthritis, right shoulder
CPT/HCPCS: 73221

== ENCOUNTER → 2025-01-10 07:44 | Outpatient (CLI) | payer OTHER, SELFPAY ==
--- NOTE | 2025-01-10 07:46 | DI.MG.S_ITS ---
MM screening mammo BI: 01/10/2025. BI-RADS: 1 CLINICAL: 79-year old female for bilateral screening mammogram. Tyrer-Cuzick lifetime risk of 2.1%. No personal or first-degree family history of breast cancer. PRIOR EXAMS 12/08/2023, 12/02/2022, 04/22/2022, 10/14/2021. MAMMOGRAPHY TECHNIQUE: 2D and 3D (tomosynthesis) digital mammographic views obtained, with additional images as needed for full coverage. Current study was also evaluated with a Computer Aided Detection (CAD) system. DENSITY C. The breasts are heterogeneously dense, which may obscure small masses. MAMMOGRAPHY FINDINGS Bilateral: No suspicious mass, asymmetry, microcalcification, or other abnormality seen. IMPRESSION: * No evidence of malignancy. RECOMMENDATIONS Bilateral * Annual screening mammography. OVERALL ASSESSMENT CATEGORY BI-RADS-1: Negative. [employer] recommends annual screening mammography beginning at age 40 for women with average risk of breast cancer. ELECTRONICALLY SIGNED: Jennifer Negrete M.D. on 01/10/2025 at 10:27:47 PM PT Interpreting Station ID: [id number]
== END ==
PROVIDERS: PCP Family Medicine; Referring Provider Family Medicine; Visit Provider Family Medicine
DX: Z12.31 Encounter for screening mammogram for malignant neoplasm of breast (principal); R92.333 Mammographic heterogeneous density, bilateral breasts
CPT/HCPCS: 77063; 77067